=== PATIENT | female | born 1940 | race Caucasian/White ===

== ENCOUNTER → 2016-10-29 | Outpatient (CLI) | payer MEDICARE, OTHER ==
--- NOTE | 2016-10-30 11:50 | WOMENS IMAGING REPORT ---
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 Additional left breast 90 mediolateral view and compression magnification views of the left breast a t the lumpectomy site. LIMITATIONS: None. FINDINGS: RIGHT BREAST MASSES: No suspicious masses. CALCIFICATIONS: No new or suspicious calcifications. ARCHITECTURAL DISTORTION: None. DEVELOPING DENSITY: None. ASYMMETRY: None noted. OTHER: Right-sided permanent central line access port over the right axilla on MLO view LEFT BREAST MASSES: No suspicious masses. CALCIFICATIONS: Benign dystrophic calcifications are present in the left retroareolar region ARCHITECTURAL DISTORTION: Postsurgical architectural distortion at the 6 o'clock position left breast unchanged DEVELOPING DENSITY: None. ASYMMETRY: Inferior left breast is smaller than the right, post therapy OTHER: Left breast skin thickening post radiation Read with the assistance of CAD: .[facility] - R2 Cenova Version 1.3 .[facility] Imaging - R2 Cenova Version 1.3 .[facility] Imaging - R2 Cenova Version 2.4 .[facility] [place] - R2 Cenova Version 2.4 .[facility] - R2 Assistant Version 9.2 BREAST DENSITY: b. There are scattered areas of fibroglandular density. BIRAD: 2 Benign findings. RECOMMENDATION: RECOMMENDED FOLLOW UP: Please continue right breast screening, left breast diagnosti c mammograms in October 2017 SPECIFIC INTERVENTION/IMAGING/CONSULTATION RECOMMENDED:No additional intervention/ imaging/consultati on needed at this time. COMMUNICATION:Patient notified by letter COMMENT: PATIENT NOTIFIED BY LETTER. The [employer] (ACR) has developed recommendations for screening MRI of the breast s in certain patient populations, to be used in conjunction with mammography. Breast MRI surveillanc e may be appropriate for women with more than 20% lifetime risk of developing breast cancer as deter mined by genetic testing, significant family history of the disease, or history of mantle radiation f or Hodgkins Disease. ACR Practice Guidelines 2008. TECHNICAL DOCUMENTATION: FINDING NUMBER: (1) ASSESSMENT: (1) JOB ID: [id number] [employer]- All Rights Reserved
== END ==
LOC: WI 09:43
PROVIDERS: ATTEND Specialist
DX: C50.312 Malignant neoplasm of lower-inner quadrant of left female breast (principal)
CPT/HCPCS: 77066; G0204

== ENCOUNTER 2017-05-19 10:56 | Emergency (ER) | payer MEDICARE, OTHER ==
--- NOTE | 2017-05-19 11:16 | ER Document Report ---
ED Medical Screen (RME) - General Chief Complaint: Pain All Over Stated Complaint: NAUSEA,COUGH Time Seen by Provider: 05/19/17 11:13 Mode of Arrival: Wheelchair Information source: Patient TRAVEL OUTSIDE OF THE [place] IN LAST 30 DAYS: No - HPI Patient complains to provider of: productive cough Onset: Other - pt with h/o pneumonia with cough productive of green sputum for the pSAt 1-2 days. Denies fever - Related Data Allergies/Adverse Reactions: ciprofloxacin [Ciprofloxacin] Allergy (Severe, Verified 05/19/17 11:04) levofloxacin [From Levaquin] Allergy (Severe, Verified 05/19/17 11:04) codeine [Codeine] Allergy (Verified 05/19/17 11:04) Past Medical History - Social History Chew tobacco use (# tins/day): No Frequency of alcohol use: None Drug Abuse: None - Past Medical History Cardiac Medical History: Reports: Hx Coronary Artery Disease, Hx Hypercholesterolemia, Hx Hypertension Denies: Hx Heart Attack Pulmonary Medical History: Reports: Hx Bronchitis, Hx Pneumonia, Hx Sleep Apnea Denies: Hx Asthma, Hx COPD, Hx Tuberculosis Neurological Medical History: Reports: Hx Seizures. Denies: Hx Cerebrovascular Accident Endocrine Medical History: Reports: Hx Hypothyroidism Renal/ Medical History: Denies: Hx Peritoneal Dialysis Malignancy Medical History: Reports: Hx Breast Cancer - S/P LUMPECTOMY, CHEMO Tx , RAD. Tx GI Medical History: Reports: Hx Gastroesophageal Reflux Disease - incin, Hx Irritable Bowel. Denies: Hx Hepatitis, Hx Hiatal Hernia - HAD UNIQUE, Hx Ulcer Musculoskeltal Medical History: Reports Hx Arthritis Psychiatric Medical History: Reports: Hx Bipolar Disorder, Hx Depression Infectious Medical History: Denies: Hx Hepatitis Past Surgical History: Reports: Hx Abdominal Surgery - Jesus Fundoplication, Hx Appendectomy, Hx Breast Surgery, Hx Cholecystectomy, Hx Hysterectomy - Partial, Hx Tonsillectomy. Denies: Hx Mastectomy, Hx Open Heart Surgery, Hx Pacemaker - Immunizations Hx Diphtheria, Pertussis, Tetanus Vaccination: Yes Physical Exam - Vital signs Vitals: Temp Pulse Resp BP Pulse Ox 98.3 F 63 16 96/58 L 98 05/19/17 11:03 05/19/17 11:03 05/19/17 11:03 05/19/17 11:03 05/19/17 11:03 Course - Vital Signs Vital signs: Temp Pulse Resp BP Pulse Ox 98.3 F 63 16 96/58 L 98 05/19/17 11:03 05/19/17 11:03 05/19/17 11:03 05/19/17 11:03 05/19/17 11:03
[2017-05-19 12:04] LABS: ABSOLUTE BASOPHILS # (AUTO) 0.1 10^3/uL (0.0-0.2); ABSOLUTE EOSINOPHILS # (AUTO) 0.1 10^3/uL (0.0-0.6); ABSOLUTE LYMPHOCYTES (AUTO) 2.5 10^3/uL (0.5-4.7); ABSOLUTE MONOCYTES (AUTO) 1.6 10^3/uL (0.1-1.4); ABSOLUTE NEUT (AUTO) 12.3 10^3/uL (1.7-8.2); BASOPHILS % (AUTO) 0.5 % (0-2); EOSINOPHILS % (AUTO) 0.6 % (0-6); HEMATOCRIT 42.3 % (36.0-47.0); HEMOGLOBIN 13.9 g/dL (12.0-15.5); HGB HCT DIFFERENCE -0.6; LYMPHOCYTES % (AUTO) 15.2 % (13-45); MEAN CORPUSCULAR HGB CONC 32.8 g/dL (32.0-36.0); MEAN CORPUSCULAR VOLUME 98 fl (80-97); MONOCYTES % (AUTO) 9.8 % (3-13); RED BLOOD COUNT 4.33 10^6/uL (3.72-5.28); RED CELL DISTRIBUTION WIDTH 14.1 % (11.5-14.0); SEGMENTED NEUTROPHILS % (AUTO) 73.9 % (42-78); WHITE BLOOD COUNT 16.6 10^3/uL (4.0-10.5)
--- NOTE | 2017-05-19 12:14 | RADIOLOGY REPORT (SQ) ---
EXAM DESCRIPTION: CHEST PA/LAT COMPLETED DATE/TIME: 05/19/2017 11:56 am REASON FOR STUDY: productive cough COMPARISON: 07/09/2016. EXAM PARAMETERS: NUMBER OF VIEWS: two views TECHNIQUE: Digital Frontal and Lateral radiographic views of the chest acquired. RADIATION DOSE: NA LIMITATIONS: none FINDINGS: LUNGS AND PLEURA: Chronic interstitial changes and mild pleural thickening in the apices. No opacities, masses or pneumothorax. No pleural effusion. MEDIASTINUM AND HILAR STRUCTURES: No masses or contour abnormalities. HEART AND VASCULAR STRUCTURES: Heart normal size. No evidence for failure. BONES: No acute findings. Degenerative changes in the spine with scoliosis. HARDWARE: Vascular access port. Clips in the upper abdomen. OTHER: No other significant finding. IMPRESSION: STABLE MILD CHRONIC SCARRING. NO ACUTE RADIOGRAPHIC FINDING IN THE CHEST. TECHNICAL DOCUMENTATION: JOB ID: [id number] [employer]- All Rights Reserved
[2017-05-19 12:19] LABS: ALANINE AMINOTRANSFERASE 18 U/L (9-52); ALBUMIN 4.5 g/dL (3.5-5.0); ALKALINE PHOSPHATASE 72 U/L (38-126); ANION GAP 17 (5-19); ASPARTATE AMINO TRANSFERASE 36 U/L (14-36); BILIRUBIN,DIRECT 0.4 mg/dL (0.0-0.4); BILIRUBIN,TOTAL 0.8 mg/dL (0.2-1.3); BLOOD UREA NITROGEN 21 mg/dL (7-20); CALCIUM 10.9 mg/dL (8.4-10.2); CARBON DIOXIDE 31 mmol/L (22-30); CHLORIDE 92 mmol/L (98-107); CREATINE KINASE 61 U/L (30-135); CREATININE RESULT 1.32 mg/dL (0.52-1.25); GLUCOSE 126 mg/dL (75-110); POTASSIUM 4.8 mmol/L (3.6-5.0); SODIUM 140.1 mmol/L (137-145); TOTAL PROTEIN 8.1 g/dL (6.3-8.2)
[2017-05-19 12:31] LABS: CREATINE KINASE MB 0.42 ng/mL (<4.55)
[2017-05-19 12:32] LABS: TROPONIN I < 0.012 ng/mL
--- NOTE | 2017-05-19 13:11 | ER Document Report ---
ED General Pain - General Mode of Arrival: Wheelchair Information source: Patient TRAVEL OUTSIDE OF THE [place] IN LAST 30 DAYS: No - HPI Patient complains to provider of: body aches Associated symptoms: Other - See above <ISIAH PATTON - Last Filed: 05/19/17 13:07> <KALIE WRIGHT - Last Filed: 05/19/17 16:00> - General Chief Complaint: Pain All Over Stated Complaint: body aches Time Seen by Provider: 05/19/17 11:13 Notes: Patient is a 76 year old female, with a past medical history including pneumonia and CAD, who presents to the emergency department complaining of body aches. Patient also complains of a productive cough with green sometimes yellowish sputum that is worse when supine. Patient denies any shortness of breath or difficulty breathing. Patient reports that she "always gets pneumonia. " PCP: (ISIAH PATTON) - Related Data Allergies/Adverse Reactions: ciprofloxacin [Ciprofloxacin] Allergy (Severe, Verified 05/19/17 11:04) levofloxacin [From Levaquin] Allergy (Severe, Verified 05/19/17 11:04) codeine [Codeine] Allergy (Verified 05/19/17 11:04) Past Medical History - General Information source: Patient - Social History Smoking Status: Former Smoker Chew tobacco use (# tins/day): No Frequency of alcohol use: None Drug Abuse: None Family History: Reviewed & Not Pertinent, CAD - Past Medical History Cardiac Medical History: Reports: Hx Coronary Artery Disease, Hx Hypercholesterolemia, Hx Hypertension Pulmonary Medical History: Reports: Hx Bronchitis, Hx Pneumonia, Hx Sleep Apnea Neurological Medical History: Reports: Hx Seizures Endocrine Medical History: Reports: Hx Hypothyroidism Malignancy Medical History: Reports: Hx Breast Cancer - S/P LUMPECTOMY, CHEMO Tx , RAD. Tx GI Medical History: Reports: Hx Gastroesophageal Reflux Disease - incin, Hx Irritable Bowel Musculoskeltal Medical History: Reports Hx Arthritis Psychiatric Medical History: Reports: Hx Bipolar Disorder, Hx Depression Past Surgical History: Reports: Hx Abdominal Surgery - Jesus Fundoplication, Hx Appendectomy, Hx Breast Surgery, Hx Cholecystectomy, Hx Hysterectomy - Partial, Hx Tonsillectomy - Immunizations Hx Diphtheria, Pertussis, Tetanus Vaccination: Yes Hx Pneumococcal Vaccination: 07/27/13 <ISIAH PATTON - Last Filed: 05/19/17 13:07> Review of Systems - Review of Systems Constitutional: See HPI, Other - Body aches EENT: No symptoms reported Cardiovascular: No symptoms reported Respiratory: See HPI, Cough, Sputum. denies: Short of breath Gastrointestinal: No symptoms reported Genitourinary: No symptoms reported Female Genitourinary: No symptoms reported Musculoskeletal: No symptoms reported Skin: No symptoms reported Hematologic/Lymphatic: No symptoms reported Neurological/Psychological: No symptoms reported -: Yes All other systems reviewed and negative <ISIAH PATTON - Last Filed: 05/19/17 13:07> Physical Exam - Vital signs Interpretation: Normal - General General appearance: Appears well, Alert - HEENT Head: Normocephalic, Atraumatic - Respiratory Respiratory status: No respiratory distress Chest status: Nontender Breath sounds: Rhonchi - mild Chest palpation: Normal - Cardiovascular Rhythm: Regular Heart sounds: Normal auscultation Murmur: No - Back Back: Normal, Nontender - Extremities General upper extremity: Normal inspection General lower extremity: Normal inspection. No: Edema - Neurological Neuro grossly intact: Yes Cognition: Normal Orientation: AAOx4 [place] Coma Scale Eye Opening: Spontaneous Valentina Coma Scale Verbal: Oriented [place] Coma Scale Motor: Obeys Commands [place] Coma Scale Total: 15 Speech: Normal - Psychological Associated symptoms: Normal affect, Normal mood - Skin Skin Temperature: Warm Skin Moisture: Dry Skin Color: Normal <ISIAH PATTON - Last Filed: 05/19/17 13:07> Course - Laboratory Result Diagrams: 05/19/17 11:45 05/19/17 11:45 <ISIAH PATTON - Last Filed: 05/19/17 13:07> - Laboratory Result Diagrams: 05/19/17 11:45 05/19/17 11:45 - Diagnostic Test Radiology reviewed: Image reviewed, Reports reviewed - Chest x-ray shows stable mild chronic scarring, nothing acute. <KALIE WRIGHT - Last Filed: 05/19/17 16:00> - Re-evaluation Re-evalutation: 05/19/17 15:59 The patient was able to cough up a very thick brown sputum sometime after her initial sputum was collected and sent to the lab. This sputum was collected by the [facility] and sent to the lab. (KALIE WRIGHT) - Vital Signs Vital signs: Temp Pulse Resp BP Pulse Ox 98.3 F 63 20 101/82 99 05/19/17 11:03 05/19/17 11:03 05/19/17 14:04 05/19/17 14:04 05/19/17 14:04 - Laboratory Laboratory results interpreted by me: 05/19/17 05/19/17 05/19/17 11:45 11:45 14:33 WBC 16.6 H MCV 98 H RDW 14.1 H Absolute Neutrophils 12.3 H Absolute Monocytes 1.6 H Chloride 92 L Carbon Dioxide 31 H BUN 21 H Creatinine 1.32 H Est GFR ( Amer) 47 L Est GFR (Non-Af Amer) 39 L Glucose 126 H Calcium 10.9 H Urine Bilirubin SMALL H Urine Ascorbic Acid 40 H Discharge <ISIAH PATTON - Last Filed: 05/19/17 13:07> <KALIE WRIGHT - Last Filed: 05/19/17 16:00> - Discharge Clinical Impression: Bronchitis Condition: Stable Disposition: HOME, SELF-CARE Additional Instructions: Bronchitis: You have acute bronchitis. This disease is an infection or inflammation of the air passageways in your lungs. Symptoms usually include cough, low grade fever, shortness of breath, and wheezing. The cough usually persists for a couple of weeks. Most cases of bronchitis get better without antibiotics. We prescribe antibiotics when we believe bacteria are damaging your airways, or if there's high risk the bronchitis will worsen into pneumonia. Increase your fluid intake. A cool mist humidifier may make your lungs more comfortable. An expectorant (cough medicine that loosens phlegm) can help. If you smoke, STOP!!! Recovery from bronchitis can be somewhat slow, but you should see improvement within a day or two. Repeated episodes of bronchitis may result in lung damage -- for example, chronic bronchitis, recurrent pneumonias, or emphysema. Call the doctor if you develop increasing fever, shortness of breath, chest pain, bloody sputum, or otherwise worsen. If you have not improved at all after several days, contact the physician. TAKE THE MEDICATION PRESCRIBED. DRINK PLENTY OF FLUIDS. FOLLOW UP WITH YOUR DOCTOR THIS WEEK IF NOT IMPROVING. RETURN TO THE EMERGENCY ROOM IF ANY NEW OR WORSENING SYMPTOMS. Prescriptions: Doxycycline Hyclate 100 mg PO BID #20 tablet Referrals: USHA MADRIGAL MD [Primary Care Provider] - Follow up as needed Scribe Attestation: 05/19/17 15:59 I personally performed the services described in the documentation, reviewed and edited the documentation which was dictated to the scribe in my presence, and it accurately records my words and actions. (KALIE WRIGHT) Scribe Documentation - Scribe Written by Scribe:: wayne Beck, 05/19/17, 1310 acting as scribe for :: Twila <ISIAH PATTON - Last Filed: 05/19/17 13:07>
--- NOTE | 2017-05-19 13:59 | EKG REPORT ---
SEVERITY:- BORDERLINE ECG - SINUS TACHYCARDIA CONSIDER ANTERIOR INFARCT : Confirmed by: Tamara Lindsay MD 19-May-2017 13:58:09
[2017-05-19 14:51] LABS: AMORPHOUS SEDIMENT,URINE TRACE /HPF; APPEARANCE,URINE CLOUDY; BILIRUBIN,URINE SMALL (NEGATIVE); GLUCOSE, URINE NEGATIVE (NEGATIVE); KETONES,URINE NEGATIVE (NEGATIVE); LEUKOCYTE ESTERASE,URINE NEGATIVE (NEGATIVE); NITRITE,URINE NEGATIVE (NEGATIVE); PROTEIN,URINE NEGATIVE (NEGATIVE); URINE SPECIFIC GRAVITY 1.024; UROBILINOGEN,URINE NEGATIVE mg/dL (<2.0)
[2017-05-19] MEDS ORDERED: DOXYCYCLINE HYCLATE 100 MG TABLET PO ONE (15:29)
[2017-05-19 16:30] VITALS: BP 91/55
== END 2017-05-19 16:15 | disposition home or self-care (01) ==
LOC: ER 10:56
DX: J40 Bronchitis, not specified as acute or chronic (principal); R52 Pain, unspecified; R05 Cough; R09.89 Other specified symptoms and signs involving the circulatory and respiratory systems; I25.10 Atherosclerotic heart disease of native coronary artery without angina pectoris; I10 Essential (primary) hypertension; Z87.01 Personal history of pneumonia (recurrent); Z88.1 Allergy status to other antibiotic agents; Z88.5 Allergy status to narcotic agent; Z87.891 Personal history of nicotine dependence; Z85.3 Personal history of malignant neoplasm of breast; Z92.21 Personal history of antineoplastic chemotherapy; Z92.3 Personal history of irradiation
CPT/HCPCS: 93005; 99284; 36415; 87040; 87070; 87205; 82553; 82550; 85025; 87077; 80053; 81001; 84484; 71020; 93010; A9270

== ENCOUNTER → 2017-07-07 | Outpatient (CLI) | payer MEDICARE, OTHER ==
--- NOTE | 2017-07-07 10:09 | RADIOLOGY REPORT (SQ) ---
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 Images reviewed with lung, soft tissue and bone windows. Reconstructed coronal and sagittal MPR images reviewed. All images stored on PACS. All CT scanners at this facility use dose modulation, iterative reconstruction, and/or weight based d osing when appropriate to reduce radiation dose to as low as reasonably achievable (ALARA). [facility]: Dose Right [facility]: CareDose [facility]: Dose Right [facility]: Teradose 4D [facility]: BlenderHouse CONTRAST TYPE AND DOSE: contrast/concentration: Isovue 370.00 mg/ml; Total Contrast Delivered: 80.0 ml; Total Saline Delivered: 55.0 ml RENAL FUNCTION: Creatinine 1.0 RADIATION DOSE: . LIMITATIONS: None. FINDINGS: LUNGS AND PLEURA: There chronic bilateral pleural and parenchymal changes. No consolidati on. No pleural effusions. HILAR AND MEDIASTINAL STRUCTURES: No identified masses or abnormal nodes. HEART AND VASCULAR STRUCTURES: No aneurysm or dissection. No central pulmonary emboli. No pericardi al effusion. HARDWARE: None in the chest. UPPER ABDOMEN: No significant findings. Limited exam. THYROID AND OTHER SOFT TISSUES: No masses. No adenopathy. BONES: No significant finding. OTHER: There is a stable hiatal hernia. IMPRESSION: No acute findings in the chest. TECHNICAL DOCUMENTATION: JOB ID: [id number] Quality ID # [id number]: Final reports with documentation of one or more dose reduction techniques (e.g., Au tomated exposure control, adjustment of the mA and/or kV according to patient size, use of iterative reconstruction technique) 2010 [employer]- All Rights Reserved
== END ==
LOC: RAD 07:55
PROVIDERS: ATTEND Physician Assistant
DX: R06.02 Shortness of breath (principal); R07.9 Chest pain, unspecified; C50.312 Malignant neoplasm of lower-inner quadrant of left female breast
CPT/HCPCS: 71260; 82565

== ENCOUNTER → 2017-07-10 | Outpatient (CLI) | payer MEDICARE, OTHER ==
--- NOTE | 2017-07-11 10:04 | XCELERA REPORT ---
[address] [address] Transthoracic Echocardiogram Report Name: ERIC PRETTY Age: 77 yrs Gender: Female : 1940 Patient Status: Outpatient Patient Location: Study Date: 07/10/2017 08:04 AM Height: 64 in Weight: 170 lb BSA: 1.8 m2 Procedure: A complete two-dimensional transthoracic echocardiogram was performed (2D, M-mode, spectral and color flow Doppler). The study was technically difficult with many images being suboptimal in quality. Reason For Study: SOB EDEMA Ordering Physician: DAMON KIDD PA-C Performed By: Marni Marrero Interpretation Summary The study was technically difficult with many images being suboptimal in quality. The left ventricular ejection fraction is within normal limits. Doppler measurements suggest pseudonormalized left ventricular relaxation, which is associated with grade II/IV or mild to moderate diastolic dysfunction There is mild concentric left ventricular hypertrophy. The left ventricle is grossly normal size. Regional wall motion abnormalities cannot be excluded due to limited visualization. The right ventricular systolic function is normal. The left atrial size is normal. The right atrium is normal in size There is a mild amount of mitral regurgitation There is no mitral valve stenosis. There is a trace amount of aortic regurgitation There is no aortic valve stenosis There is a trace to mild amount of tricuspid regurgitation There is mild to moderate pulmonary hypertension by echo Right ventricular systolic pressure is estimated to be elevated at 40- 50mmHg. There is no pericardial effusion. MMode/2D Measurements & Calculations RVDd: 3.3 cm LVIDd: 4.8 cm FS: 26.9 % Ao root diam: IVSd: 0.75 cm LVIDs: 3.5 cm EDV(Teich): 2.8 cm LVPWd: 0.78 cm 108.3 ml Ao root area: ESV(Teich): 51.6 ml 6.2 cm2 EF(Teich): 52.4 % LA dimension: 3.6 cm LVLd ap4: 7.1 cm SV(MOD-sp4): EDV(MOD-sp4): 39.0 ml 69.0 ml LVLs ap4: 6.2 cm ESV(MOD-sp4): 30.0 ml EF(MOD-sp4): 56.5 % Doppler Measurements & Calculations MV E max lili: MV P1/2t max lili: Ao V2 max: LV V1 max P.1 cm/sec 69.6 cm/sec 103.2 cm/sec 3.4 mmHg MV A max lili: MV P1/2t: 79.6 msec Ao max PG: LV V1 max: 92.8 cm/sec MVA(P1/2t): 2.8 cm2 4.3 mmHg 92.8 cm/sec MV E/A: 0.73 MV dec slope: 256.1 cm/sec2 MV dec time: 0.26 sec PA V2 max: TR max lili: 82.9 cm/sec 314.9 cm/sec PA max PG: TR max P.7 mmHg 2.8 mmHg Left Ventricle The left ventricle is grossly normal size. There is mild concentric left ventricular hypertrophy. The left ventricular ejection fraction is within normal limits. Doppler measurements suggest pseudonormalized left ventricular relaxation, which is associated with grade II/IV or mild to moderate diastolic dysfunction. Regional wall motion abnormalities cannot be excluded due to limited visualization. Right Ventricle The right ventricle is grossly normal size. There is normal right ventricular wall thickness. The right ventricular systolic function is normal. Atria The right atrium is normal in size. The left atrial size is normal. Interarterial septum not well visualized and not well dopplered. Cannot comment on ASD/PFO presence. Mitral Valve There is mild mitral annular calcification. There is no mitral valve stenosis. There is a mild amount of mitral regurgitation. Aortic Valve The aortic valve is not well visualized secondary to technical limitations. The aortic valve is mildly calcified. There is no aortic valve stenosis. There is a trace amount of aortic regurgitation. Tricuspid Valve The tricuspid valve is not well visualized, but is grossly normal. There is no tricuspid stenosis. There is a trace to mild amount of tricuspid regurgitation. There is mild to moderate pulmonary hypertension by echo. Right ventricular systolic pressure is estimated to be elevated at 40- 50mmHg. Pulmonic Valve The pulmonic valve is not well visualized. Great Vessels The aortic root is not well visualized. The inferior vena cava appeared normal and decreased > 50% with respiration (RAP 5-10 mmHg). Effusions There is no pericardial effusion. : DAMON KIDD PA-C > Evelia Franks
== END ==
LOC: SP 07:26
PROVIDERS: ATTEND Physician Assistant
DX: R06.02 Shortness of breath (principal); R60.0 Localized edema
CPT/HCPCS: 93306

== ENCOUNTER → 2017-11-25 | Outpatient (CLI) | payer MEDICARE, OTHER ==
--- NOTE | 2017-11-26 08:21 | WOMENS IMAGING REPORT ---
EXAM DESCRIPTION: 3D DX MAMMO BILAT COMPLETED DATE/TIME: 11/25/2017 10:44 am REASON FOR STUDY: PERSONAL HX OF BREAST CA; Z85.3 Z85.3 PERSONAL HISTORY OF MALIGNANT NEOPLASM OF B REAST COMPARISON: Multiple since 2009 TECHNIQUE: Standard craniocaudal and mediolateral oblique views of each breast recorded using digita l acquisition and breast tomosynthesis. Additional left breast 90 mediolateral view and compression magnification views left breast in the C C and MLO orientations at the lumpectomy site LIMITATIONS: None. FINDINGS: RIGHT BREAST MASSES: No suspicious masses. CALCIFICATIONS: No new or suspicious calcifications. ARCHITECTURAL DISTORTION: None. DEVELOPING DENSITY: None. ASYMMETRY: None noted. OTHER: No other significant findings. LEFT BREAST MASSES: No suspicious masses. CALCIFICATIONS: Coarse dense dystrophic calcifications in the left retroareolar region. ARCHITECTURAL DISTORTION: Postoperative architectural distortion in the left breast 6 o'clock positio n DEVELOPING DENSITY: None. ASYMMETRY: None noted. OTHER: No other significant finding. Read with the assistance of CAD: .[facility] - R2 Cenova Version 1.3 .[facility] Imaging - R2 Cenova Version 1.[address] .[facility] Imaging - R2 Cenova Version 2.4 .[facility] - R2 Cenova Version 2.4 .[facility] - R2 Cloth Finisher Version 9.2 IMPRESSION: No mammographic/tomosynthesis evidence for malignancy bilaterally BREAST DENSITY: b. There are scattered areas of fibroglandular density. BIRAD: 2 Benign findings. RECOMMENDATION: RECOMMENDED FOLLOW UP: Please continue right breast screening, left breast diagnosti c mammogram/tomosynthesis in October 2018 SPECIFIC INTERVENTION/IMAGING/CONSULTATION RECOMMENDED:No additional intervention/ imaging/consultati on needed at this time. COMMUNICATION:The negative/benign results were communicated to the patient. COMMENT: The patient has been notified of the results by letter per [place] requirements. Additional no tification policies are in place for contacting patient with suspicious or incomplete findings. Quality ID #[id number]: The [employer] recommends an annual screening mammogram for women aged 40 years or over. This facility utilizes a reminder system to ensure that all patients receive reminder letters, and/or direct phone calls for appointments. This includes reminders for routine scr eening mammograms, diagnostic mammograms, or other Breast Imaging Interventions when appropriate. Th is patient will be placed in the appropriate reminder system. The [employer] (ACR) has developed recommendations for screening MRI of the breast s in certain patient populations, to be used in conjunction with mammography. Breast MRI surveillanc e may be appropriate for women with more than 20% lifetime risk of developing breast cancer as deter mined by genetic testing, significant family history of the disease, or history of mantle radiation f or Hodgkins Disease. ACR Practice Guidelines 2008. DBT Technology DBT is a type of tomographic mammography. With conventional mammography, overlapping breast tissue ma y make lesions difficult to detect, even with good compression. DBT uses an x-ray tube that rotates a round the breast, taking images at different angles. These images are then combined to create thin sl ices of the breast that the radiologist can view as a 3D reconstruction. The [employer] unit can perform full-field digital mammograms (2D imaging); or DBT (3D imaging); or both, in a combination mode that quickly performs both the mammogram and the tomosynthesis scan while the breast is still compressed. PQRS 6045F: Fluoroscopic imaging is not utilized for breast tomosynthesis. TECHNICAL DOCUMENTATION: FINDING NUMBER: (1) ASSESSMENT: (1) JOB ID: [id number] [employer]- All Rights Reserved
== END ==
LOC: WI 10:23
PROVIDERS: ATTEND Physician Assistant
DX: Z85.3 Personal history of malignant neoplasm of breast (principal)
CPT/HCPCS: 77066; G0279; 77062

== ENCOUNTER → 2017-12-23 | Outpatient (CLI) | payer MEDICARE, OTHER ==
--- NOTE | 2017-12-24 12:14 | XCELERA REPORT ---
[address] [address] Lower Extremity Arterial Evaluation Name: ERIC PRETTY Age: 77 yrs Gender: Female : 1940 Patient Status: Outpatient Patient Location: Study Date: 12/23/2017 11:02 AM Procedure: A color flow and duplex scan of the lower extremity arteries was performed bilaterally with velocity and waveform anaylsis. Ankle brachial indicies performed. Reason For Study: LACK OF PULSE Ordering Physician: LUCINDA GORDON Performed By: Ligia Rutherford Measurements and Calculations Right Left CHEMIST INTERN PSV 81.5 73.7 cm/sec Prox PFA PSV -49.9 -57.4 cm/sec Prox SFA PSV -71.9 73.2 cm/sec Mid SFA PSV -55.6 -49.9 cm/sec Dist SFA PSV -62.9 -48.6 cm/sec Prox Pop A PSV 35.9 44.9 cm/sec Dist KATHIA PSV -43.0 42.4 cm/sec Dist SPORTS EDITOR PSV 51.0 50.0 cm/sec Jonathan Pedis PSV -20.6 18.9 cm/sec Right Side Arterial Evaluation Normal velocity and triphasic waveforms noted from the Common Femoral artery to the Posterior Tibial artery . 0-19% stenosis at the Anterior Tibial artery. Ankle Brachial index is 1.1. Left Side Arterial Evaluation Normal velocity and triphasic waveforms noted from the Common Femoral artery to the Popliteal artery . Biphasic in the infrageniculate vessels. 0-19% stenosis at the infrageniculate level. Ankle Brachial index is 1.1. Interpretation Summary Mild hemodynamically significant lesions in the bilateral lower extremities, on duplex imaging, at rest. : LUCINDA GORDON > Lucinda Gordon
== END ==
LOC: SP 10:50
PROVIDERS: ATTEND Surgery
DX: R09.89 Other specified symptoms and signs involving the circulatory and respiratory systems (principal)
CPT/HCPCS: 93925

== ENCOUNTER 2018-03-20 18:19 | Emergency (ER) | payer MEDICARE, OTHER ==
[2018-03-20] MEDS ORDERED: NORMAL SALINE 1000 ML 1,000 ML IV ONE (18:48)
[2018-03-20] MEDS ORDERED: IPRATROPIUM/ALBUTEROL 0.5-2.5 MG/3 ML AMPUL NEB ONE ×2 (18:48→18:50)
--- NOTE | 2018-03-20 18:50 | ER Document Report ---
ED General - General Chief Complaint: Abdominal Pain Stated Complaint: ABDOMINAL PAIN Time Seen by Provider: 03/20/18 18:42 Mode of Arrival: Wheelchair Information source: Patient, Relative Notes: 77-year-old female presents with daughter with concerns of generalized weakness confusion pelvic pain cough over the past few days. Patient's O2 sats are usually in the low 90s, did dip down to the upper 80s at home. Daughter notes blood pressure was low at home Last night patient appeared confused however they note today she appears more stable TRAVEL OUTSIDE OF THE [place] IN LAST 30 DAYS: No - HPI Onset: Last week Onset/Duration: Persistent, Better Quality of pain: Achy Severity: Mild Pain Level: 1 Associated symptoms: Nonproductive cough, Weakness, Other Exacerbated by: Denies Relieved by: Denies Similar symptoms previously: Yes - Previous UTI Recently seen / treated by doctor: No - Related Data Allergies/Adverse Reactions: ciprofloxacin [Ciprofloxacin] Allergy (Severe, Verified 05/19/17 11:04) levofloxacin [From Levaquin] Allergy (Severe, Verified 05/19/17 11:04) codeine [Codeine] Allergy (Verified 05/19/17 11:04) Sulfa (Sulfonamide Antibiotics) Allergy (Verified 03/20/18 18:21) Past Medical History - Social History Smoking Status: Former Smoker Cigarette use (# per day): No Chew tobacco use (# tins/day): No Smoking Education Provided: No Frequency of alcohol use: None Drug Abuse: None Family History: Reviewed & Not Pertinent, CAD Patient has suicidal ideation: No Patient has homicidal ideation: No - Past Medical History Cardiac Medical History: Reports: Hx Coronary Artery Disease, Hx Hypercholesterolemia, Hx Hypertension Denies: Hx Heart Attack Pulmonary Medical History: Reports: Hx Bronchitis, Hx Pneumonia, Hx Sleep Apnea Denies: Hx Asthma, Hx COPD, Hx Tuberculosis Neurological Medical History: Reports: Hx Seizures. Denies: Hx Cerebrovascular Accident Endocrine Medical History: Reports: Hx Hypothyroidism Renal/ Medical History: Denies: Hx Peritoneal Dialysis Malignancy Medical History: Reports: Hx Breast Cancer - S/P LUMPECTOMY, CHEMO Tx , RAD. Tx GI Medical History: Reports: Hx Gastroesophageal Reflux Disease - incin, Hx Irritable Bowel. Denies: Hx Hepatitis, Hx Hiatal Hernia - HAD UNIQUE, Hx Ulcer Musculoskeltal Medical History: Reports Hx Arthritis Psychiatric Medical History: Reports: Hx Bipolar Disorder, Hx Depression Infectious Medical History: Denies: Hx Hepatitis Past Surgical History: Reports: Hx Abdominal Surgery - Jesus Fundoplication, Hx Appendectomy, Hx Breast Surgery, Hx Cholecystectomy, Hx Hysterectomy, Hx Tonsillectomy. Denies: Hx Mastectomy, Hx Open Heart Surgery, Hx Pacemaker - Immunizations Hx Diphtheria, Pertussis, Tetanus Vaccination: Yes Hx Pneumococcal Vaccination: 07/27/13 Review of Systems - Review of Systems Notes: REVIEW OF SYSTEMS: CONSTITUTIONAL : Denies fever, chills, or sweats. Denies recent illness. EENT: Denies eye, ear, throat, or mouth pain or symptoms. Denies nasal or sinus congestion or discharge. Denies throat, tongue, or mouth swelling or difficulty swallowing. CARDIOVASCULAR: Denies chest pain. Denies palpitations or racing or irregular heart beat. Denies ankle edema. RESPIRATORY: Admits to cough GASTROINTESTINAL: Admits to suprapubic pain GENITOURINARY: Admits pelvic pain FEMALE GENITOURINARY: Denies vaginal bleeding, heavy or abnormal periods, irregular periods. Denies vaginal discharge or odor. MUSCULOSKELETAL: Denies back or neck pain or stiffness. Denies joint pain or swelling. SKIN: Denies rash, lesions or sores. HEMATOLOGIC : Denies easy bruising or bleeding. LYMPHATIC: Denies swollen, enlarged glands. NEUROLOGICAL: Denies confusion or altered mental status. Denies passing out or loss of consciousness. Denies dizziness or lightheadedness. Denies headache. Denies weakness or paralysis or loss of use of either side. Denies problems with gait or speech. Denies sensory loss, numbness, or tingling. Denies seizures. PSYCHIATRIC: Denies anxiety or stress. Denies depression, suicidal ideation, or homicidal ideation. ALL OTHER SYSTEMS REVIEWED AND NEGATIVE. PHYSICAL EXAMINATION: GENERAL: Well-appearing, well-nourished and in no acute distress. HEAD: Atraumatic, normocephalic. EYES: Pupils equal round and reactive to light, extraocular movements intact, conjunctiva are normal. ENT: Nares patent, oropharynx clear without exudates. Moist mucous membranes. NECK: Normal range of motion, supple without lymphadenopathy LUNGS: Intermittent rhonchi HEART: Regular rate and rhythm without murmurs ABDOMEN: Soft, suprapubic tenderness Female : deferred Musculoskeletal: Normal range of motion, no pitting or edema. No cyanosis. NEUROLOGICAL: Cranial nerves grossly intact. Normal speech, normal gait. Normal sensory, motor exams PSYCH: Normal mood, normal affect. SKIN: Warm, Dry, normal turgor, no rashes or lesions noted. Dictation was performed using [employer] voice recognition software Physical Exam - Vital signs Vitals: Temp Pulse Resp BP Pulse Ox 98.7 F 92 16 127/67 H 94 03/20/18 18:26 03/20/18 18:26 03/20/18 18:26 03/20/18 18:26 03/20/18 18:26 Course - Re-evaluation Re-evalutation: 03/20/18 18:50 Patient appears well at this time however given daughter's concerns I will work her up extensively since daughter is very knowledgeable. 03/20/18 21:19 Patient has been stable throughout the visit, UTI is noted otherwise she is stable, I will discharge home with extremely close follow-up After performing a Medical Screening Examination, I estimate there is LOW risk for ACUTE APPENDICITIS, BOWEL OBSTRUCTION, ACUTE CHOLECYSTITIS, PERFORATED DIVERTICULITIS, INCARCERATED HERNIA, PANCREATITIS, PELVIC INFLAMMATORY DISEASE, PERFORATED ULCER, ECTOPIC , or TUBO-OVARIAN ABSCESS, thus I consider the discharge disposition reasonable. Also, there is no evidence or peritonitis , sepsis, or toxicity. I have reevaluated this patient multiple times and no significant life threatening changes are noted. The patient and I have discussed the diagnosis and risks, and we agree with discharging home with close follow-up with the understanding that symptoms and presentations can change. We also discussed returning to the Emergency Department immediately if new or worsening symptoms occur. We have discussed the symptoms which are most concerning (e.g., bloody stool, fever, changing or worsening pain, vomiting) that necessitate immediate return. - Vital Signs Vital signs: Temp Pulse Resp BP Pulse Ox 98.7 F 92 16 127/67 H 94 03/20/18 18:26 03/20/18 18:26 03/20/18 18:26 03/20/18 18:26 03/20/18 18:26 - Laboratory Result Diagrams: 03/20/18 19:10 03/20/18 19:45 Laboratory results interpreted by me: 03/20/18 03/20/18 03/20/18 18:55 19:10 19:45 WBC 15.7 H RDW 14.3 H Absolute Neutrophils 11.8 H Carbon Dioxide 31 H BUN 21 H Est GFR (Non-Af Amer) 50 L Glucose 122 H Ur Leukocyte Esterase MODERATE H Urine Ascorbic Acid 40 H - Diagnostic Test Radiology reviewed: Image reviewed - Chest x-ray 2 view notes no acute abnormality, Reports reviewed Discharge - Discharge Clinical Impression: Cough UTI (urinary tract infection) Qualifiers: Urinary tract infection type: acute cystitis Hematuria presence: without hematuria Qualified Code(s): N30.00 - Acute cystitis without hematuria Condition: Stable Disposition: HOME, SELF-CARE Instructions: Urinary Tract Infection ([facility]) Additional Instructions: Follow up with your physician tomorrow for further care or return to the ED IMMEDIATELY if symptoms worsen or new concerns occur. If you cannot afford to follow up with your primary care physician a list of low cost clinics have been provided at the end of your discharge papers as well. Prescriptions: Cephalexin Monohydrate [Keflex 500 mg Capsule] 500 mg PO BID 7 Days capsule Phenazopyridine HCl [Pyridium 200 mg Tablet] 200 mg PO TID #9 tablet
[2018-03-20] MEDS ORDERED: ACETAMINOPHEN 325 MG TABLET PO ONE (18:56)
[2018-03-20 19:14] LABS: APPEARANCE,URINE SLIGHTLY-CLOUDY; BILIRUBIN,URINE NEGATIVE (NEGATIVE); COLOR,URINE YELLOW; GLUCOSE, URINE NEGATIVE (NEGATIVE); KETONES,URINE NEGATIVE (NEGATIVE); LEUKOCYTE ESTERASE,URINE MODERATE (NEGATIVE); NITRITE,URINE NEGATIVE (NEGATIVE); PROTEIN,URINE NEGATIVE (NEGATIVE); URINE SPECIFIC GRAVITY 1.018; UROBILINOGEN,URINE NEGATIVE mg/dL (<2.0)
[2018-03-20] MEDS ORDERED: CEFTRIAXONE INJ 1000 MG VIAL IV ONE (19:28)
[2018-03-20 19:33] LABS: ABSOLUTE BASOPHILS # (AUTO) 0.1 10^3/uL (0.0-0.2); ABSOLUTE EOSINOPHILS # (AUTO) 0.5 10^3/uL (0.0-0.6); ABSOLUTE LYMPHOCYTES (AUTO) 2.3 10^3/uL (0.5-4.7); ABSOLUTE MONOCYTES (AUTO) 0.9 10^3/uL (0.1-1.4); ABSOLUTE NEUT (AUTO) 11.8 10^3/uL (1.7-8.2); BASOPHILS % (AUTO) 0.5 % (0-2); HEMATOCRIT 42.6 % (36.0-47.0); LYMPHOCYTES % (AUTO) 14.9 % (13-45); MEAN CORPUSCULAR HEMOGLOBIN 31.3 pg (27.0-33.4); MEAN CORPUSCULAR HGB CONC 32.9 g/dL (32.0-36.0); MEAN CORPUSCULAR VOLUME 95 fl (80-97); PLATELET COUNT 237 10^3/uL (150-450); RED BLOOD COUNT 4.47 10^6/uL (3.72-5.28); RED CELL DISTRIBUTION WIDTH 14.3 % (11.5-14.0); SEGMENTED NEUTROPHILS % (AUTO) 75.6 % (42-78); TOTAL CELLS COUNTED % (AUTO) 100 %; WHITE BLOOD COUNT 15.7 10^3/uL (4.0-10.5)
--- NOTE | 2018-03-20 19:37 | RADIOLOGY REPORT (SQ) ---
EXAM DESCRIPTION: CHEST 2 VIEWS COMPLETED DATE/TIME: 03/20/2018 7:18 pm REASON FOR STUDY: confusion COMPARISON: 05/19/2017 EXAM PARAMETERS: NUMBER OF VIEWS: two views TECHNIQUE: Digital Frontal and Lateral radiographic views of the chest acquired. RADIATION DOSE: NA LIMITATIONS: none FINDINGS: LUNGS AND PLEURA: No acute opacities, masses or pneumothorax. No pleural effusion. MEDIASTINUM AND HILAR STRUCTURES: Stable. HEART AND VASCULAR STRUCTURES: Stable. BONES: No acute findings. HARDWARE: Right chest port. OTHER: No other significant finding. IMPRESSION: NO ACUTE RADIOGRAPHIC FINDING IN THE CHEST. TECHNICAL DOCUMENTATION: JOB ID: [id number] [place]-72 2010 [employer]- All Rights Reserved Reading location - IP/workstation name: [email or web address]
[2018-03-20 20:13] LABS: ALANINE AMINOTRANSFERASE 39 U/L (9-52); ALBUMIN 3.8 g/dL (3.5-5.0); ALKALINE PHOSPHATASE 75 U/L (38-126); ANION GAP 11 (5-19); ASPARTATE AMINO TRANSFERASE 29 U/L (14-36); BILIRUBIN,DIRECT 0.3 mg/dL (0.0-0.4); BILIRUBIN,TOTAL 0.8 mg/dL (0.2-1.3); BLOOD UREA NITROGEN 21 mg/dL (7-20); CALCIUM 10.2 mg/dL (8.4-10.2); CARBON DIOXIDE 31 mmol/L (22-30); CHLORIDE 99 mmol/L (98-107); GLUCOSE 122 mg/dL (75-110); LIPASE 50.5 U/L (23-300); POTASSIUM 4.2 mmol/L (3.6-5.0); TOTAL PROTEIN 6.6 g/dL (6.3-8.2)
[2018-03-20] MEDS ORDERED: PHENAZOPYRIDINE HCL 200 MG TABLET PO ONE (21:19)
[2018-03-20 21:30] VITALS: BP 108/59
== END 2018-03-20 21:30 | disposition home or self-care (01) ==
LOC: ER 18:19
DX: N30.00 Acute cystitis without hematuria (principal); R05 Cough; R10.9 Unspecified abdominal pain; R53.1 Weakness; R10.2 Pelvic and perineal pain; R03.0 Elevated blood-pressure reading, without diagnosis of hypertension; E78.00 Pure hypercholesterolemia, unspecified; I10 Essential (primary) hypertension; E03.9 Hypothyroidism, unspecified; I25.10 Atherosclerotic heart disease of native coronary artery without angina pectoris; Z88.3 Allergy status to other anti-infective agents; Z88.6 Allergy status to analgesic agent; Z88.2 Allergy status to sulfonamides; Z87.891 Personal history of nicotine dependence; Z90.710 Acquired absence of both cervix and uterus; Z90.49 Acquired absence of other specified parts of digestive tract
CPT/HCPCS: 94640 ×2; 99284; 96361; 96365; 36415; 87086; 83690; 85025; 80053; 81001; 71046; A9270 ×3; J0696; J7030; J3490; J7620

== ENCOUNTER 2018-03-25 19:49 | Emergency (ER) | payer MEDICARE, OTHER ==
--- NOTE | 2018-03-25 20:08 | ER Document Report ---
ED Medical Screen (RME) - General Chief Complaint: Altered Mental Status Stated Complaint: POSSIBLE ALTERED MENTAL STATUS Time Seen by Provider: 03/25/18 20:00 Notes: 77 years old female presents today with shortness of breath cough swelling of lower extremity, lower abdominal pain with a history of UTI, general malaise and feeling weak, temperature of 101 this evening. She has a history of frequent UTI and possible congestive heart failure. I have greeted and performed a rapid initial assessment of this patient. A comprehensive ED assessment and evaluation of the patient, analysis of test results and completion of the medical decision making process will be conducted by additional ED providers. PHYSICAL EXAMINATION: GENERAL: Appears to be, general malaise noted, pale HEAD: Atraumatic, normocephalic. EYES: Pupils equal round extraocular movements intact, conjunctiva are normal. ENT: Nares patent NECK: Normal range of motion LUNGS: Bilateral crackles throughout the lung field particularly lower lungs, no wheezing. Inspiratory crackles Cardiovascular system normal S1-S2- Musculoskeletal: Normal range of motion NEUROLOGICAL: Normal speech, normal gait. PSYCH: Normal mood, normal affect. SKIN: Warm, Dry, normal turgor, no rashes or lesions noted. TRAVEL OUTSIDE OF THE [place] IN LAST 30 DAYS: No - Related Data Allergies/Adverse Reactions: ciprofloxacin [Ciprofloxacin] Allergy (Severe, Verified 05/19/17 11:04) levofloxacin [From Levaquin] Allergy (Severe, Verified 05/19/17 11:04) codeine [Codeine] Allergy (Verified 05/19/17 11:04) Sulfa (Sulfonamide Antibiotics) Allergy (Verified 03/20/18 18:21) Past Medical History - Past Medical History Cardiac Medical History: Reports: Hx Coronary Artery Disease, Hx Hypercholesterolemia, Hx Hypertension Denies: Hx Heart Attack Pulmonary Medical History: Reports: Hx Bronchitis, Hx Pneumonia, Hx Sleep Apnea Denies: Hx Asthma, Hx COPD, Hx Tuberculosis Neurological Medical History: Reports: Hx Seizures. Denies: Hx Cerebrovascular Accident Endocrine Medical History: Reports: Hx Hypothyroidism Renal/ Medical History: Denies: Hx Peritoneal Dialysis Malignancy Medical History: Reports: Hx Breast Cancer - S/P LUMPECTOMY, CHEMO Tx , RAD. Tx GI Medical History: Reports: Hx Gastroesophageal Reflux Disease - incin, Hx Irritable Bowel. Denies: Hx Hepatitis, Hx Hiatal Hernia - HAD UNIQUE, Hx Ulcer Musculoskeltal Medical History: Reports Hx Arthritis Psychiatric Medical History: Reports: Hx Bipolar Disorder, Hx Depression Infectious Medical History: Denies: Hx Hepatitis Past Surgical History: Reports: Hx Abdominal Surgery - Jesus Fundoplication, Hx Appendectomy, Hx Breast Surgery, Hx Cholecystectomy, Hx Hysterectomy, Hx Tonsillectomy. Denies: Hx Mastectomy, Hx Open Heart Surgery, Hx Pacemaker - Immunizations Hx Diphtheria, Pertussis, Tetanus Vaccination: Yes Doctor's Discharge - Discharge Referrals: USHA MADRIGAL MD [Primary Care Provider] - Follow up as needed
--- NOTE | 2018-03-25 20:47 | RADIOLOGY REPORT (SQ) ---
EXAM DESCRIPTION: CHEST SINGLE VIEW COMPLETED DATE/TIME: 03/25/2018 8:27 pm REASON FOR STUDY: SOB COMPARISON: 03/20/2018 EXAM PARAMETERS: NUMBER OF VIEWS: One view. TECHNIQUE: Single frontal radiographic view of the chest acquired. RADIATION DOSE: NA LIMITATIONS: None. FINDINGS: LUNGS AND PLEURA: No opacities, masses or pneumothorax. No pleural effusion. MEDIASTINUM AND HILAR STRUCTURES: No masses. Contour normal. HEART AND VASCULAR STRUCTURES: Heart normal in size. Normal vasculature. BONES: No acute findings. HARDWARE: There is an injection port on the right. OTHER: No other significant finding. IMPRESSION: NO ACUTE RADIOGRAPHIC FINDING IN THE CHEST. TECHNICAL DOCUMENTATION: JOB ID: [id number] [email or web address]- All Rights Reserved Reading location - IP/workstation name: [email or web address]
[2018-03-25 20:59] LABS: ABSOLUTE BASOPHILS # (AUTO) 0.1 10^3/uL (0.0-0.2); ABSOLUTE EOSINOPHILS # (AUTO) 0.5 10^3/uL (0.0-0.6); ABSOLUTE LYMPHOCYTES (AUTO) 1.3 10^3/uL (0.5-4.7); ABSOLUTE MONOCYTES (AUTO) 0.5 10^3/uL (0.1-1.4); BASOPHILS % (AUTO) 0.5 % (0-2); EOSINOPHILS % (AUTO) 3.3 % (0-6); HEMATOCRIT 36.2 % (36.0-47.0); HEMOGLOBIN 11.8 g/dL (12.0-15.5); LYMPHOCYTES % (AUTO) 8.7 % (13-45); MEAN CORPUSCULAR HEMOGLOBIN 30.9 pg (27.0-33.4); MEAN CORPUSCULAR HGB CONC 32.5 g/dL (32.0-36.0); MEAN CORPUSCULAR VOLUME 95 fl (80-97); MONOCYTES % (AUTO) 3.6 % (3-13); PLATELET COUNT 271 10^3/uL (150-450); RED BLOOD COUNT 3.81 10^6/uL (3.72-5.28); RED CELL DISTRIBUTION WIDTH 13.6 % (11.5-14.0); SEGMENTED NEUTROPHILS % (AUTO) 83.9 % (42-78); TOTAL CELLS COUNTED % (AUTO) 100 %; WHITE BLOOD COUNT 14.4 10^3/uL (4.0-10.5)
[2018-03-25 21:01] LABS: VENOUS BLOOD BASE EXCESS 5.9 mmol/L; VENOUS BLOOD HCO3 30.7 mmol/L (20-32); VENOUS BLOOD PCO2 45.3 mmHg (35-63); VENOUS BLOOD PH 7.45 (7.30-7.42)
[2018-03-25 21:04] LABS: INTERNATIONAL RATION (INR) 0.95; PROTHROMBIN TIME 13.1 SEC (11.4-15.4)
[2018-03-25] MEDS ORDERED: NORMAL SALINE 1000 ML 1,000 ML IV ONE ×2 (21:12→23:38)
[2018-03-25 21:13] LABS: ALANINE AMINOTRANSFERASE 44 U/L (9-52); ALBUMIN 3.5 g/dL (3.5-5.0); ALKALINE PHOSPHATASE 69 U/L (38-126); ANION GAP 12 (5-19); ASPARTATE AMINO TRANSFERASE 35 U/L (14-36); BILIRUBIN,TOTAL 0.4 mg/dL (0.2-1.3); BLOOD UREA NITROGEN 8 mg/dL (7-20); CALCIUM 9.5 mg/dL (8.4-10.2); CARBON DIOXIDE 27 mmol/L (22-30); CHLORIDE 102 mmol/L (98-107); CREATINE KINASE 39 U/L (30-135); GLUCOSE 108 mg/dL (75-110); POTASSIUM 3.8 mmol/L (3.6-5.0); SODIUM 140.9 mmol/L (137-145); TOTAL PROTEIN 6.2 g/dL (6.3-8.2)
[2018-03-25 21:24] LABS: CREATINE KINASE MB 0.25 ng/mL (<4.55); NT PRO BNP 637 pg/mL (<450)
[2018-03-25 21:27] LABS: TROPONIN I < 0.012 ng/mL
--- NOTE | 2018-03-25 22:18 | ER Document Report ---
ED General - General Chief Complaint: Altered Mental Status Stated Complaint: POSSIBLE ALTERED MENTAL STATUS Time Seen by Provider: 03/25/18 20:00 Notes: Patient is a 77-year-old female who presents emergency presents today with a chief complaint of altered mental status and generalized abdominal discomfort. Daughter at the bedside states that they presented here on March 20 she was diagnosed with UTI and discharged home. She states that her symptoms initially started about a week ago with a complaint of suprapubic and left lower quadrant sharp stabbing pains with associated constipation. She states that she has had decreased appetite with nausea and belching. Due to previous Jesus she has difficulty vomiting. Daughter states that since she started the Keflex her pain has become more diffuse and worsening in severity now more generalized in the left lower quadrant. States her last bowel movement was yesterday. Does admit to history of diverticulitis. Primary care is with Dr. Pierce Campos farm laborer with Dr. Sigala Allergies Levaquin, Cipro, sulfa, codeine Past medical history significant for rheumatoid arthritis, hypertension, hyperlipidemia, hypothyroidism, GERD with previous hiatal hernia, history of breast cancer status post lumpectomy and chemoradiation, previous stroke, trigeminal neuralgia Past surgical history significant for Jesus fundoplication, microvascular decompression bilaterally for trigeminal neuralgia, previous hysterectomy, left partial knee reconstruction, previous left breast lumpectomy, previous left breast debridement with wound VAC Social history: Admits to former tobacco user, denies any alcohol or drug use. Patient lives alone but her daughter lives at home next door and checks on her daily. TRAVEL OUTSIDE OF THE [place] IN LAST 30 DAYS: No - Related Data Allergies/Adverse Reactions: ciprofloxacin [Ciprofloxacin] Allergy (Severe, Verified 05/19/17 11:04) levofloxacin [From Levaquin] Allergy (Severe, Verified 05/19/17 11:04) codeine [Codeine] Allergy (Verified 05/19/17 11:04) Sulfa (Sulfonamide Antibiotics) Allergy (Verified 03/20/18 18:21) Past Medical History - Social History Smoking Status: Never Smoker Chew tobacco use (# tins/day): No Frequency of alcohol use: None Drug Abuse: None Family History: Reviewed & Not Pertinent, CAD Patient has suicidal ideation: No Patient has homicidal ideation: No - Past Medical History Cardiac Medical History: Reports: Hx Coronary Artery Disease, Hx Hypercholesterolemia, Hx Hypertension Denies: Hx Heart Attack Pulmonary Medical History: Reports: Hx Bronchitis, Hx Pneumonia, Hx Sleep Apnea Denies: Hx Asthma, Hx COPD, Hx Tuberculosis Neurological Medical History: Reports: Hx Seizures. Denies: Hx Cerebrovascular Accident Endocrine Medical History: Reports: Hx Hypothyroidism Renal/ Medical History: Denies: Hx Peritoneal Dialysis Malignancy Medical History: Reports: Hx Breast Cancer - S/P LUMPECTOMY, CHEMO Tx , RAD. Tx GI Medical History: Reports: Hx Gastroesophageal Reflux Disease - incin, Hx Irritable Bowel. Denies: Hx Hepatitis, Hx Hiatal Hernia - HAD UNIQUE, Hx Ulcer Musculoskeltal Medical History: Reports Hx Arthritis Psychiatric Medical History: Reports: Hx Bipolar Disorder, Hx Depression Infectious Medical History: Denies: Hx Hepatitis Past Surgical History: Reports: Hx Abdominal Surgery - Jesus Fundoplication, Hx Appendectomy, Hx Breast Surgery, Hx Cholecystectomy, Hx Hysterectomy, Hx Tonsillectomy. Denies: Hx Mastectomy, Hx Open Heart Surgery, Hx Pacemaker - Immunizations Hx Diphtheria, Pertussis, Tetanus Vaccination: Yes Hx Pneumococcal Vaccination: 07/27/13 Review of Systems - Review of Systems Constitutional: Fever - 100.5 EENT: No symptoms reported Cardiovascular: No symptoms reported Respiratory: No symptoms reported Gastrointestinal: See HPI - is is Genitourinary: No symptoms reported Musculoskeletal: No symptoms reported Neurological/Psychological: See HPI -: Yes All other systems reviewed and negative Physical Exam - Vital signs Vitals: Temp Pulse Resp BP Pulse Ox 100.7 F H 107 H 24 H 106/74 89 L 03/25/18 19:57 03/25/18 19:57 03/25/18 19:57 03/25/18 19:57 03/25/18 19:57 - Notes Notes: PHYSICAL EXAM GENERAL: Alert, interacts well. HEAD: Normocephalic, atraumatic. EYES: Pupils equal, round, and reactive to light. Extraocular movements intact. ENT: Oral mucosa moist, tongue midline. NECK: Full range of motion. Supple. Trachea midline. LUNGS: Clear to auscultation bilaterally, no wheezes, rales, or rhonchi. No respiratory distress. HEART: Regular rate and rhythm. No murmurs, gallops, or rubs. ABDOMEN: Lower abdominal distention with tenderness to palpation without any rebound tenderness. No guarding, rebound, or rigidity.. Bowel sounds present in all 4 quadrants. EXTREMITIES: Moves all 4 extremities spontaneously. 2+ edema, radial and dorsalis pedis pulses 2/4 bilaterally. No cyanosis. NEUROLOGICAL: Alert and oriented x4. Face symmetric. Tongue protrudes midline. Extraocular motions intact. Pupils are 2 mm and equally reactive. Normal speech. 5 out of 5 strength in both the distal and proximal upper and lower extremities bilaterally. Sensation is grossly intact throughout. The a PSYCH: Normal affect, normal mood. SKIN: Warm, dry, normal turgor. No rashes or lesions noted. Course - Re-evaluation Re-evalutation: 03/25/18 22:23 patient is an 77-year-old female who isInitially hypotensive with systolics in the 90s is responded well to IV saline bolus. Patient was satting 90% on room air which daughter states is common for her but is unaware of any underlying congestive heart failure, COPD. she has a lactic acid is 0.8 without concerns for underlying sepsis. 03/26/18 01:29 CT shows evidence of diverticulitis without any evidence of perforation, abscess or fistula. Patient's vital signs remained stable. Repeat abdominal exams with focal tenderness but improvement with Tylenol. Patient tolerating p.o. without any difficulty. Afebrile. No evidence of tachycardia, hypotension. Will discharge home on p.o. antibiotics and to follow-up with gastroenterology the next 24-48 hours. - Vital Signs Vital signs: Temp Pulse Resp BP Pulse Ox 100.7 F H 107 H 21 H 104/70 92 03/25/18 19:57 03/25/18 19:57 03/26/18 01:01 03/26/18 01:00 03/26/18 01:01 - Laboratory Result Diagrams: 03/25/18 20:45 03/25/18 20:45 Laboratory results interpreted by me: 03/25/18 03/25/18 03/25/18 20:45 20:45 20:45 WBC 14.4 H Hgb 11.8 L Seg Neutrophils % 83.9 H Lymphocytes % 8.7 L Absolute Neutrophils 12.0 H VBG pH 7.45 H NT-Pro-B Natriuret Pep Total Protein 6.2 L Urine Nitrite Urine Urobilinogen Urine Ascorbic Acid 03/25/18 03/25/18 20:45 23:04 WBC Hgb Seg Neutrophils % Lymphocytes % Absolute Neutrophils VBG pH NT-Pro-B Natriuret Pep 637 H Total Protein Urine Nitrite POSITIVE H Urine Urobilinogen 4.0 H Urine Ascorbic Acid 40 H - Diagnostic Test Radiology reviewed: Image reviewed, Reports reviewed - EKG Interpretation by Me EKG shows normal: Sinus rhythm Rate: Normal Rhythm: NSR When compared to previous EKG there are: No significant change Discharge - Discharge Clinical Impression: Diverticulitis, Resistance to quinolones and fluoroquinolones Condition: Good Disposition: HOME, SELF-CARE Instructions: Diverticulitis ([facility]) Additional Instructions: Please return with any worsening fever, pain, symptoms worrisome to you Prescriptions: Amoxicillin/Potassium Clav [Augmentin Xr 1,000-62.5 Tab] 2 each PO BID 10 Days tab.er.12h Metoclopramide HCl [Reglan 10 mg Tablet] 1 - 2 tab PO ASDIR PRN #25 tablet PRN Reason: Referrals: USHA MADRIGAL MD [Primary Care Provider] - Follow up as needed MARYCRUZ SIGALA MD [ACTIVE STAFF] - 03/27/18
--- NOTE | 2018-03-25 22:56 | RADIOLOGY REPORT (SQ) ---
EXAM DESCRIPTION: CT abdomen and pelvis with contrast. CLINICAL HISTORY: LLQ abdominal pain COMPARISON: None Available TECHNIQUE: Contiguous axial images of the abdomen and pelvis were obtained after the administration of intravenous contrast followed by reconstruction images.This exam was performed according to our departmental dose-optimization program, which includes automated exposure control, adjustment of the mA and/or kV according to patient size and/or use of iterative reconstruction technique. FINDINGS: There is mucosal thickening of the distal ascending colon and sigmoid colon with stranding of the adjacent fat and diverticuli compatible with acute diverticulitis. No abnormal fluid collection to suggest a drainable abscess. There is no free air. Patient is status post hysterectomy. Calcifications within the pelvis compatible with phleboliths. Linear opacities within the lungs may represent scar versus subsegmental atelectasis. There is a hiatal hernia. Patient is status post cholecystectomy. The liver, spleen, pancreas and kidneys are within normal limits. There is no hydronephrosis or renal stones. Adrenal glands are within normal limits. Aorta is of normal caliber and tapering. There is no free fluid in the abdomen or pelvis. There is no bowel obstruction. The appendix was not visualized. There is no pericecal inflammation. There is scoliosis of the lumbar spine. IMPRESSION: Findings compatible with acute diverticulitis.
--- NOTE | 2018-03-25 23:13 | EKG REPORT ---
SEVERITY:- NORMAL ECG - SINUS RHYTHM : Confirmed by: Evelia Franks 25-Mar-2018 23:13:02
[2018-03-25 23:18] LABS: APPEARANCE,URINE CLEAR; BILIRUBIN,URINE NEGATIVE (NEGATIVE); COLOR,URINE AMBER; GLUCOSE, URINE NEGATIVE (NEGATIVE); KETONES,URINE NEGATIVE (NEGATIVE); LEUKOCYTE ESTERASE,URINE NEGATIVE (NEGATIVE); NITRITE,URINE POSITIVE (NEGATIVE); PROTEIN,URINE NEGATIVE (NEGATIVE); URINE SPECIFIC GRAVITY 1.023
[2018-03-25] MEDS ORDERED: CEFTRIAXONE 1 GM/D5W RTU 1 GM/50 ML RTUPB IV ONE (23:37)
[2018-03-25] MEDS ORDERED: ACETAMINOPHEN 325 MG TABLET PO ONE (23:49)
[2018-03-26 02:09] VITALS: BP 102/68
== END 2018-03-26 02:10 | disposition home or self-care (01) ==
LOC: ER 19:49
DX: R41.82 Altered mental status, unspecified (principal); R06.02 Shortness of breath; R05 Cough; R53.81 Other malaise; Z88.2 Allergy status to sulfonamides; Z88.3 Allergy status to other anti-infective agents; Z87.440 Personal history of urinary (tract) infections; Z90.49 Acquired absence of other specified parts of digestive tract; Z90.710 Acquired absence of both cervix and uterus; Z87.891 Personal history of nicotine dependence; K57.92 Diverticulitis of intestine, part unspecified, without perforation or abscess without bleeding
CPT/HCPCS: 93005; 36415; 87040; 87086; 82553; 82550; 85025; 85610; 80053; 81001; 84484; 82803; 83605; 83880; 71045; 74177; 93010; A9270; J7030 ×2; J0696

== ENCOUNTER 2018-03-26 14:04 | Inpatient (IN) | payer MEDICARE, OTHER ==
[2018-03-26] MEDS ORDERED: NORMAL SALINE 1000 ML 500 ML IV PRN (14:25)
--- NOTE | 2018-03-26 14:35 | ER Document Report ---
ED GI/ - General Chief Complaint: Abdominal Pain Stated Complaint: ABDOMINAL PAIN Time Seen by Provider: 03/26/18 14:21 Notes: Chief complaint: abdominal pain: Abdominal pain History of complain:( obtained from----patient) 77 years old female yesterday was seen in the ER and discharged home. Presents back again with a left sided abdominal pain as well as left upper quadrant abdominal pain. Even slight movement or any bumps on the street causes her severe pain. Denies any diarrhea or constipation but nauseous. Had fever and chills. She was given ceftriaxone yesterday and an amoxicillin and sent home from the ER. Onset: As the bowel gradual Duration: Last few days Severity: Moderate to severe Quality: Sharp pain Context: Diverticulitis Exacerbating factor and relieving factors: As described above REVIEW OF SYSTEMS: CONSTITUTIONAL : Denies fever, chills, or sweats. Denies recent illness. EENT: Denies eye, ear, throat, or mouth pain or symptoms. Denies nasal or sinus congestion or discharge. Denies throat, tongue, or mouth swelling or difficulty swallowing. CARDIOVASCULAR: Denies chest pain. Denies palpitations or racing or irregular heart beat. Denies ankle edema. RESPIRATORY: Denies cough, cold, or chest congestion. Denies shortness of breath, difficulty breathing, or wheezing. GASTROINTESTINAL: Denies distention. Denies , vomiting, or diarrhea. Denies blood in vomitus, stools, or per rectum. Denies black, tarry stools. Denies constipation. GENITOURINARY: Denies difficulty urinating, painful urination, burning, frequency, blood in urine, or discharge. FEMALE GENITOURINARY: Denies vaginal bleeding, heavy or abnormal periods, irregular periods. Denies vaginal discharge or odor. MUSCULOSKELETAL: Denies back or neck pain or stiffness. Denies joint pain or swelling. SKIN: Denies rash, lesions or sores. HEMATOLOGIC : Denies easy bruising or bleeding. LYMPHATIC: Denies swollen, enlarged glands. NEUROLOGICAL: Denies confusion or altered mental status. Denies passing out or loss of consciousness. Denies dizziness or lightheadedness. Denies headache. Denies weakness or paralysis or loss of use of either side. Denies problems with gait or speech. Denies sensory loss, numbness, or tingling. Denies seizures. PSYCHIATRIC: Denies anxiety or stress. Denies depression, suicidal ideation, or homicidal ideation. ALL OTHER SYSTEMS REVIEWED AND NEGATIVE. PHYSICAL EXAMINATION: GENERAL: Well-appearing, well-nourished and in mild to moderate acute distress. HEAD: Atraumatic, normocephalic. EYES: Pupils equal round and reactive to light, extraocular movements intact, conjunctiva are normal. ENT: Nares patent, oropharynx clear without exudates. Moist mucous membranes. NECK: Normal range of motion, supple without lymphadenopathy LUNGS: Breath sounds clear to auscultation bilaterally and equal. No wheezes rales or rhonchi. HEART: Regular rate and rhythm without murmurs ABDOMEN: Soft, tender over the left upper quadrant and left side of the abdomen. Nondistended abdomen. No guarding, no rebound. No masses appreciated. Female : deferred Musculoskeletal: Normal range of motion, no pitting or edema. No cyanosis. NEUROLOGICAL: Cranial nerves grossly intact. Normal speech, normal gait. Normal sensory, motor exams PSYCH: Normal mood, normal affect. SKIN: Warm, Dry, normal turgor, no rashes or lesions noted. Dictation was performed using [employer] voice recognition software TRAVEL OUTSIDE OF THE [place] IN LAST 30 DAYS: No - Related Data Allergies/Adverse Reactions: ciprofloxacin [Ciprofloxacin] Allergy (Severe, Verified 03/26/18 14:11) levofloxacin [From Levaquin] Allergy (Severe, Verified 03/26/18 14:11) codeine [Codeine] Allergy (Verified 03/26/18 14:11) Sulfa (Sulfonamide Antibiotics) Allergy (Verified 03/26/18 14:11) Past Medical History - Social History Smoking Status: Former Smoker Chew tobacco use (# tins/day): No Frequency of alcohol use: None Drug Abuse: None Family History: Reviewed & Not Pertinent, CAD Patient has suicidal ideation: No Patient has homicidal ideation: No - Past Medical History Cardiac Medical History: Reports: Hx Coronary Artery Disease, Hx Hypercholesterolemia, Hx Hypertension Denies: Hx Heart Attack Pulmonary Medical History: Reports: Hx Bronchitis, Hx Pneumonia, Hx Sleep Apnea Denies: Hx Asthma, Hx COPD, Hx Tuberculosis Neurological Medical History: Reports: Hx Seizures. Denies: Hx Cerebrovascular Accident Endocrine Medical History: Reports: Hx Hypothyroidism Renal/ Medical History: Denies: Hx Peritoneal Dialysis Malignancy Medical History: Reports: Hx Breast Cancer - S/P LUMPECTOMY, CHEMO Tx , RAD. Tx GI Medical History: Reports: Hx Gastroesophageal Reflux Disease - incin, Hx Irritable Bowel. Denies: Hx Hepatitis, Hx Hiatal Hernia - HAD UNIQUE, Hx Ulcer Musculoskeltal Medical History: Reports Hx Arthritis Psychiatric Medical History: Reports: Hx Bipolar Disorder, Hx Depression Infectious Medical History: Denies: Hx Hepatitis Past Surgical History: Reports: Hx Abdominal Surgery - Jesus Fundoplication, Hx Appendectomy, Hx Breast Surgery, Hx Cholecystectomy, Hx Hysterectomy, Hx Tonsillectomy. Denies: Hx Mastectomy, Hx Open Heart Surgery, Hx Pacemaker - Immunizations Hx Diphtheria, Pertussis, Tetanus Vaccination: Yes Hx Pneumococcal Vaccination: 07/27/13 Review of Systems - Review of Systems Notes: Dictated Physical Exam - Vital signs Vitals: Temp Pulse Resp BP Pulse Ox 100.1 F 108 H 22 H 104/68 87 L 03/26/18 14:09 03/26/18 14:09 03/26/18 14:09 03/26/18 14:09 03/26/18 14:09 - Notes Notes: Dictated Course - Re-evaluation Re-evalutation: 03/26/18 14:[address] Aguilar was called and case was discussed and patient is being admitted directly to the floor. - Vital Signs Vital signs: Temp Pulse Resp BP Pulse Ox 100.1 F 108 H 20 104/68 87 L 03/26/18 14:09 03/26/18 14:09 03/26/18 14:15 03/26/18 14:09 03/26/18 14:09 Discharge - Discharge Clinical Impression: Acute diverticulitis of intestine Condition: Stable Disposition: ADMITTED INPATIENT Admitting Provider: Hospitalist Unit Admitted: Telemetry Referrals: USHA MADRIGAL MD [Primary Care Provider] - Follow up as needed
[2018-03-26] MEDS ORDERED: RINGERS SOLUTION,LACTATED 1,000 ML IV ONE (15:18)
[2018-03-26 15:22] LABS: ABSOLUTE BASOPHILS # (AUTO) 0.1 10^3/uL (0.0-0.2); ABSOLUTE EOSINOPHILS # (AUTO) 0.6 10^3/uL (0.0-0.6); ABSOLUTE LYMPHOCYTES (AUTO) 1.3 10^3/uL (0.5-4.7); ABSOLUTE MONOCYTES (AUTO) 0.6 10^3/uL (0.1-1.4); ABSOLUTE NEUT (AUTO) 9.8 10^3/uL (1.7-8.2); BASOPHILS % (AUTO) 0.9 % (0-2); EOSINOPHILS % (AUTO) 4.7 % (0-6); HEMATOCRIT 33.7 % (36.0-47.0); HEMOGLOBIN 11.1 g/dL (12.0-15.5); LYMPHOCYTES % (AUTO) 10.2 % (13-45); MEAN CORPUSCULAR HEMOGLOBIN 31.3 pg (27.0-33.4); MEAN CORPUSCULAR VOLUME 95 fl (80-97); PLATELET COUNT 264 10^3/uL (150-450); RED BLOOD COUNT 3.54 10^6/uL (3.72-5.28); RED CELL DISTRIBUTION WIDTH 13.7 % (11.5-14.0); SEGMENTED NEUTROPHILS % (AUTO) 79.2 % (42-78); TOTAL CELLS COUNTED % (AUTO) 100 %; WHITE BLOOD COUNT 12.4 10^3/uL (4.0-10.5)
[2018-03-26] MEDS ORDERED: PIPERACILLIN SODIUM/TAZOBACTAM 4.5 GM in NORMAL SALINE 100 ML IV ONE (15:30)
--- NOTE | 2018-03-26 15:36 | PDOC H&P ---
History of Present Illness Admission Date/PCP: 03/26/18 14:47 USHA MADRIGAL MD Patient complains of: Abdominal pain History of Present Illness: ERIC PRETTY is a 77 year old female past medical history of chronic hypotension and diverticulitis that yesterday was seen in the ER and discharged home. Presents back again with a left sided abdominal pain as well as left upper quadrant abdominal pain. Even slight movement or any bumps on the street causes her severe pain. Denies any diarrhea or constipation but nauseous. Had fever and chills. She was given ceftriaxone yesterday and an amoxicillin and sent home from the ER. Appears the patient does have an issue with constipation. She initially thought that her symptoms were triggered by an impaction last week. The patient did have a bowel movement on Friday and subsequently had persistent abdominal pain since that time. She states that her symptoms initially started about a week ago with a complaint of suprapubic and left lower quadrant sharp stabbing pains with associated constipation. She states that she has had decreased appetite with nausea and belching. Due to previous Jesus she has difficulty vomiting did manage to have an episode of vomiting Friday before presentation. Daughter states that since she started the Keflex her pain has become more diffuse and worsening in severity now more generalized in the left lower quadrant. She was sent home yesterday with large dose of Augmentin the patient's symptoms did persist. Patient is allergic to fluoroquinolones. The patient was referred to the hospitalist for admission and management due to failure of antibiotic treatment with Keflex and Augmentin. 03/25/18 20:45 WBC 14.4 H Selected Entries 03/25/18 03/26/18 03/26/18 19:57 14:09 14:36 Temperature 100.7 F H 100.1 F Heart Rate ( 101 Monitors) Blood Pressure 99/68 L Home Meds Table Cephalexin Monohydrate [Keflex 500 mg Capsule] 500 mg PO BID 7 Days capsule 03/20/18 Amoxicillin/Potassium Clav [Augmentin Xr 1,000-62.5 Tab] 2 each PO BID 10 Days tab.er.12h 03/26/18 Past Medical History Cardiac Medical History: Reports: Coronary Artery Disease, Hyperlipidema, Other - Hypotension Pulmonary Medical History: Reports: Bronchitis, Pneumonia, Sleep Apnea Neurological Medical History: Reports: Seizures, Other - Trigeminal neuralgia Endocrine Medical History: Reports: Hypothyroidism Malignancy Medical History: Reports: Breast Cancer - S/P LUMPECTOMY, CHEMO Tx, RAD. Tx GI Medical History: Reports: Gastroesophageal Reflux Disease Musculoskeltal Medical History: Reports: Arthritis Psychiatric Medical History: Reports: Bipolar Disorder, Depression Hematology: Reports: Anemia Past Surgical History Past Surgical History: Reports: Appendectomy, Cholecystectomy, Hysterectomy, Tonsillectomy, Other - Niesen fundoplication Social History Information Source: Patient Occupation: Retired Lives with: Family Smoking Status: Former Smoker - Stopped smoking 35 years ago. Frequency of Alcohol Use: None Hx Recreational Drug Use: No Drugs: None Hx Prescription Drug Abuse: No - Advance Directive Resuscitation Status: Full Code Surrogate healthcare decision maker:: Elana Limon [phone] Family History Family History: CAD, Hypertension, Malignancy - Skin, leukemia, CKD Parental Family History Reviewed: Yes Children Family History Reviewed: Yes Sibling(s) Family History Reviewed.: Yes - Sister with ESRD Medication/Allergy Home Medications: Amoxicillin/Potassium Clav [Augmentin Xr 1,000-62.5 Tab] 2 tab PO BID 03/26/18 Ascorbic Acid [Vitamin C 500 mg Tablet] 500 mg PO DAILY 03/26/18 Aspirin [Aspirin EC] 81 mg PO QHS 03/26/18 Biotin 5,000 mcg PO DAILY 03/26/18 Calcium Citrate/Vitamin D3 [Calcium Citrate - Vit D3 Tab] 1 each PO DAILY Carbamazepine [Carbamazepine ER] 100 mg PO DAILY 03/26/18 Cholecalciferol (Vitamin D3) [Vitamin D3 1000 Unit Tablet] 1,000 unit PO DAILY 03/26/18 Clonazepam [Klonopin 1 mg Tablet] 1 mg PO DAILY 03/26/18 Cyanocobalamin (Vitamin B-12) [Vitamin B12] 1,000 mcg PO DAILY 03/26/18 Ferrous Sulfate [Iron] 65 mg PO DAILY 03/26/18 Furosemide [Lasix 20 mg Tablet] 20 mg PO BID 03/26/18 Gabapentin [Neurontin] 1,200 mg PO QHS 03/26/18 Levothyroxine Sodium [Synthroid] 75 mcg PO DAILY 03/26/18 Lisinopril [Prinivil 10 mg Tablet] 10 mg PO Q3D 03/26/18 Metoclopramide HCl [Reglan 10 mg Tablet] 10 mg PO ASDIR PRN 03/26/18 Metoprolol Succinate [Toprol Xl 50 mg Tab.sr] 50 mg PO Q3D 03/26/18 Multivit-Min/Iron/Folic/Lutein [Centrum Silver Women Tablet] 1 each PO DAILY Ondansetron [Zofran Odt] 8 mg PO Q6HP PRN 03/26/18 Potassium Chloride [K-Tab ER] 20 meq PO DAILY 03/26/18 Simvastatin [Zocor 40 mg Tablet] 40 mg PO QHS 03/26/18 Allergies/Adverse Reactions: ciprofloxacin [Ciprofloxacin] Allergy (Severe, Verified 03/26/18 14:11) levofloxacin [From Levaquin] Allergy (Severe, Verified 03/26/18 14:11) codeine [Codeine] Allergy (Verified 03/26/18 14:11) Sulfa (Sulfonamide Antibiotics) Allergy (Verified 03/26/18 14:11) Review of Systems Constitutional: PRESENT: chills, fatigue, fever(s), night sweats. ABSENT: headache(s), weight gain, weight loss Eyes: ABSENT: visual disturbances Ears: ABSENT: hearing changes Cardiovascular: ABSENT: chest pain, dyspnea on exertion, edema, orthropnea, palpitations Respiratory: ABSENT: cough, hemoptysis Gastrointestinal: PRESENT: abdominal pain, constipation, diarrhea, nausea, vomiting. ABSENT: hematemesis, hematochezia Genitourinary: ABSENT: dysuria, hematuria Musculoskeletal: ABSENT: joint swelling Integumentary: ABSENT: rash, wounds Neurological: PRESENT: confusion. ABSENT: abnormal gait, abnormal speech, dizziness, focal weakness, syncope Psychiatric: ABSENT: anxiety, depression, homidical ideation, suicidal ideation Endocrine: ABSENT: cold intolerance, heat intolerance, polydipsia, polyuria Hematologic/Lymphatic: ABSENT: easy bleeding, easy bruising Physical Exam Vital Signs: Temp Pulse Resp BP Pulse Ox 100.1 F 108 H 24 H 99/68 L 95 03/26/18 14:09 03/26/18 14:09 03/26/18 14:36 03/26/18 14:36 03/26/18 14:36 General appearance: PRESENT: no acute distress, cooperative, well-developed, well-nourished Head exam: PRESENT: atraumatic, normocephalic Eye exam: PRESENT: conjunctiva pink, EOMI, PERRLA. ABSENT: scleral icterus Ear exam: PRESENT: normal external ear exam Mouth exam: PRESENT: dry mucosa, tongue midline Neck exam: ABSENT: carotid bruit, JVD, lymphadenopathy, thyromegaly Respiratory exam: PRESENT: clear to auscultation micheal, symmetrical, unlabored. ABSENT: rales, rhonchi, wheezes Cardiovascular exam: PRESENT: RRR. ABSENT: diastolic murmur, rubs, systolic murmur Pulses: PRESENT: normal dorsalis pedis pul Vascular exam: PRESENT: normal capillary refill GI/Abdominal exam: PRESENT: distended, firm, normal bowel sounds, soft, tenderness. ABSENT: guarding, mass, organolmegaly, rebound Rectal exam: PRESENT: deferred Extremities exam: PRESENT: full ROM. ABSENT: calf tenderness, clubbing, pedal edema Neurological exam: PRESENT: alert - Little delayed, awake, oriented to person, oriented to place, oriented to time, CN II-XII grossly intact. ABSENT: motor sensory deficit Psychiatric exam: PRESENT: appropriate affect, normal mood. ABSENT: homicidal ideation, suicidal ideation Skin exam: PRESENT: dry, intact, warm. ABSENT: cyanosis, rash Results Laboratory Results: 03/25/18 03/25/18 03/25/18 20:45 20:45 20:45 WBC 14.4 H Hgb 11.8 L Hct 36.2 Plt Count 271 PT 13.1 INR 0.95 Sodium 140.9 Potassium 3.8 Chloride 102 Carbon Dioxide 27 BUN 8 Creatinine 0.83 Glucose 108 Lactic Acid Calcium 9.5 Total Bilirubin 0.4 AST 35 ALT 44 Alkaline Phosphatase 69 Creatine Kinase 39 Total Protein 6.2 L Albumin 3.5 03/25/18 03/25/18 03/25/18 20:45 20:45 20:45 VBG pH 7.45 H VBG pCO2 45.3 VBG HCO3 30.7 VBG Base Excess 5.9 CK-MB (CK-2) 0.25 Troponin I < 0.012 NT-Pro-B Natriuret Pep 637 H 03/25/18 23:04 Albumin Urine pH 5.0 Ur Specific [place] 1.023 Urine Protein NEGATIVE Urine Glucose (UA) NEGATIVE Urine Ketones NEGATIVE Urine Blood NEGATIVE Urine Nitrite POSITIVE H Urine Bilirubin NEGATIVE Urine Urobilinogen 4.0 H Ur Leukocyte Esterase NEGATIVE Urine WBC (Auto) 2 Urine RBC (Auto) 44 Squamous Epi Cells Auto 1 03/26/18 15:07 Blood Culture - Pending Blood 03/26/18 14:41 Blood Culture - Pending Blood 03/25/18 23:04 Urine Culture - Preliminary Clean Catch Midstream 03/25/18 22:10 Blood Culture - Pending Blood 03/25/18 20:45 Blood Culture - Pending Blood Assessment & Plan - Diagnosis (1) Acute diverticulitis of intestine Is this a current diagnosis for this admission?: Yes Plan: Patient has failed outpatient treatment with Augmentin. We will admit the patient to telemetry and cover with Zosyn she absolutely cannot tolerate a fluoroquinolone. Keep the patient n.p.o. and give the patient some volume. (2) Early sepsis Is this a current diagnosis for this admission?: Yes Plan: Secondary to #1. Will hydrate and follow. Repeat labs pending. 03/26/18 15:07 WBC 12.4 H 03/26/18 15:07 BLOOD CULTURE [MC] Stat COMPREHENSIVE METABOLIC PANEL [CHEM] Stat 03/26/18 15:31 LACTIC ACID SEPSIS [CHEM] Stat (3) Hypotension, chronic Is this a current diagnosis for this admission?: Yes Plan: It appears the patient has had this issue for a long time. Patient only takes cardiac medications every 72 hours because of this. Will work to maintain a MAP >60. (5) Bipolar depression Is this a current diagnosis for this admission?: Yes Plan: Will continue home medications. (6) Hyperlipemia Qualifiers: Hyperlipidemia type: unspecified Qualified Code(s): E78.5 - Hyperlipidemia , unspecified Is this a current diagnosis for this admission?: Yes Plan: Will continue home medications. (7) Seizure disorder Is this a current diagnosis for this admission?: Yes Plan: Will continue home medications. - Time Time Spent: 50 to 70 Minutes Medications reviewed and adjusted accordingly: Yes Anticipated discharge: Home Within: within 72 hours Disposition: DISPOSITION: The patient is a full code. Pending patient's symptomatology and diagnostic findings will reevaluate in the a.m. The patient will be admitted to telemetry and the patient's expected length of stay will surpass 2 midnights. TIME SPENT: on this admission including assessment, plan, physical examination, family meeting, and patient education is 60 minutes. - Inpatient Certification Based on my medical assessment, after consideration of the patient's comorbidities, presenting symptoms, or acuity I expect that the services needed warrant INPATIENT care.: Yes I certify that my determination is in accordance with my understanding of Medicare's requirements for reasonable and necessary INPATIENT services [42 CFR 412.3e].: Yes Medical Necessity: Failure to Improve With Outpatient Therapy, Need Close Monitoring Due to Risk of Patient Decompensation, Need For IV Fluids Post Hospital Care: D/C Senior Safety Support Manager Documentation
[2018-03-26 15:41] LABS: ALANINE AMINOTRANSFERASE 37 U/L (9-52); ALBUMIN 3.1 g/dL (3.5-5.0); ALKALINE PHOSPHATASE 62 U/L (38-126); ANION GAP 9 (5-19); ASPARTATE AMINO TRANSFERASE 32 U/L (14-36); BILIRUBIN,DIRECT 0.2 mg/dL (0.0-0.4); BILIRUBIN,TOTAL 0.3 mg/dL (0.2-1.3); BLOOD UREA NITROGEN 8 mg/dL (7-20); CARBON DIOXIDE 27 mmol/L (22-30); CHLORIDE 105 mmol/L (98-107); GLUCOSE 98 mg/dL (75-110); POTASSIUM 3.6 mmol/L (3.6-5.0); SODIUM 140.5 mmol/L (137-145); TOTAL PROTEIN 6.1 g/dL (6.3-8.2)
[2018-03-26] MEDS ORDERED: CLONAZEPAM 1 MG TABLET PO PRN (16:37)
[2018-03-26] MEDS ORDERED: ONDANSETRON 4 MG TAB.RAPDIS PO PRN (16:50)
--- NOTE | 2018-03-26 17:36 | RADIOLOGY REPORT (SQ) ---
EXAM DESCRIPTION: CT ABD/PELVIS NO ORAL OR IV COMPLETED DATE/TIME: 03/26/2018 5:13 pm REASON FOR STUDY: FU 03/25, abd pain COMPARISON: CT ABDOMEN PELVIS 03/08/2018, 10/26/2013, 05/19/2013 TECHNIQUE: CT scan of the abdomen and pelvis performed without intravenous or oral contrast. Images reviewed with lung, soft tissue, and bone windows. Reconstructed coronal and sagittal MPR images revi ewed. All images stored on PACS. All CT scanners at this facility use dose modulation, iterative reconstruction, and/or weight based d osing when appropriate to reduce radiation dose to as low as reasonably achievable (ALARA). [facility]: Dose Right [facility]: CareDose [facility]: Dose Right [facility]: Teradose 4D [facility]: Smart [employer] Powertrain RADIATION DOSE: CT Rad equipment meets quality standard of care and radiation dose reduction techniq ues were employed. CTDIvol: 11.4 mGy. DLP: 557 mGy-cm.mGy. LIMITATIONS: None. FINDINGS: LOWER CHEST: No significant findings. No nodules or infiltrates. NON-CONTRASTED LIVER, SPLEEN, ADRENALS: Evaluation limited by lack of IV contrast. No identified sign ificant masses. PANCREAS: No masses. No peripancreatic inflammatory changes. GALLBLADDER: Post cholecystectomy RIGHT KIDNEY AND URETER: No suspicious masses. Assessment limited by lack of IV contrast. No signif icant calcifications. No hydronephrosis or hydroureter. LEFT KIDNEY AND URETER: No suspicious masses. Assessment limited by lack of IV contrast. No signifi cant calcifications. No hydronephrosis or hydroureter. AORTA AND RETROPERITONEUM: No aneurysm. No retroperitoneal masses or adenopathy. BOWEL AND PERITONEAL CAVITY: There is inflammatory change along the descending colon, with stranding in the pericolic fat likely due to diverticulitis. This involves a 15 cm long segment of colon, best shown on coronal images 28-41. No pericolic abscess is identified. No free air or free fluid in th e area of inflammation. Cecum in the right upper quadrant. Remainder of the uncontrasted gastrointe stinal tract unremarkable. APPENDIX: Surgically absent surgically absent. PELVIS, BLADDER, AND ABDOMINAL WALL:No abnormal masses. No free fluid. Bladder normal. Post hysterec siobhan. BONES: No significant findings. OTHER: No other significant finding. IMPRESSION: Descending colon diverticulitis without abscess, similar compared to 03/25/2018 CT abdome n pelvis. COMMENT: Quality ID # [id number]: Final reports with documentation of one or more dose reduction techniques (e.g., Automated exposure control, adjustment of the mA and/or kV according to patient size, use of iterative reconstruction technique) TECHNICAL DOCUMENTATION: JOB ID: [id number] [employer]- All Rights Reserved Reading location - IP/workstation name: [facility]
[2018-03-26] MEDS ORDERED: DOCUSATE SODIUM 100 MG CAPSULE PO SCH (18:00)
[2018-03-26] MEDS: LACTOBACILLUS ACIDOPHILUS 250 MG TAB PO SCH (19:02)
[2018-03-26] MEDS: RINGERS SOLUTION,LACTATED 1,000 ML IV PRN (20:47)
[2018-03-26] MEDS: PIPERACILLIN SODIUM/TAZOBACTAM 4.5 GM in NORMAL SALINE 100 ML IV SCH (20:48)
[2018-03-26] MEDS: SIMVASTATIN 40 MG TABLET PO SCH (21:35)
[2018-03-26] MEDS: GABAPENTIN 400 MG CAPSULE PO SCH (21:35)
[2018-03-26] MEDS: HEPARIN SOD (PORCINE) 5,000 UNIT/ML 1 ML SYRINGE SUBCUT SCH (21:35)
[2018-03-26] MEDS: ASPIRIN 81 MG TABLET, ENT COATED PO SCH (21:35)
[2018-03-26] MEDS ORDERED: CARBAMAZEPINE 100 MG TAB.SR.12H PO ONE (23:15)
[2018-03-27] MEDS ORDERED: CARBAMAZEPINE 100 MG TAB.SR.12H PO ONE (00:37)
[2018-03-27] MEDS: PIPERACILLIN SODIUM/TAZOBACTAM 4.5 GM in NORMAL SALINE 100 ML IV SCH ×4 (03:21→22:25)
[2018-03-27] MEDS: HEPARIN SOD (PORCINE) 5,000 UNIT/ML 1 ML SYRINGE SUBCUT SCH ×3 (06:10→22:26)
[2018-03-27] MEDS: CLONAZEPAM 1 MG TABLET PO SCH (06:10)
[2018-03-27] MEDS ORDERED: FERROUS SULFATE 325 MG TABLET PO SCH (10:00)
[2018-03-27] MEDS ORDERED: CARBAMAZEPINE 100 MG TAB.SR.12H PO SCH (10:00)
[2018-03-27] MEDS: LACTOBACILLUS ACIDOPHILUS 250 MG TAB PO SCH ×2 (11:05→17:22)
[2018-03-27] MEDS: LEVOTHYROXINE SODIUM 0.075 MG TABLET PO SCH (11:05)
[2018-03-27] MEDS: RINGERS SOLUTION,LACTATED 1,000 ML IV PRN (11:07)
--- NOTE | 2018-03-27 14:21 | PDOC PROGRESS REPORT ---
Subjective Progress Note for:: 03/27/18 Subjective:: Patient was easily arousable and tells me that she is feeling better. He does not think she is confused and her family agrees that she is improved in this regard. She is continuing to have lower abdominal pain across the lower abdomen , achy, improving, worse with movement, getting better with time. No nausea or vomiting. Been having loose stools. No bloody stools. No chest pain or difficulty breathing. We discussed her history of noncompliance with oxygen at length. We talked about the importance of oxygen if it is medically indicated. Apparently the patient has sleep apnea but has been unable to tolerate any of the masks does not use any oxygen or other device at night. We discussed the dangers of low oxygen level especially when driving, she does drive her grandchildren around. Reason For Visit: ACUTE DIVERTICULITIS Physical Exam Vital Signs: Temp Pulse Resp BP Pulse Ox 98.8 F 82 18 120/86 H 95 03/27/18 08:42 03/27/18 08:42 03/27/18 08:42 03/27/18 08:42 03/27/18 08:42 Intake & Output 03/26/18 03/27/18 03/28/18 06:59 06:59 06:59 Intake Total 2083 0 Output Total 950 375 Balance 1133 -375 Weight 79.6 kg General appearance: PRESENT: no acute distress, cooperative, hard of hearing Head exam: PRESENT: atraumatic, normocephalic Eye exam: PRESENT: EOMI. ABSENT: conjunctival injection, scleral icterus Ear exam: PRESENT: normal external ear exam Mouth exam: PRESENT: moist, tongue midline Respiratory exam: PRESENT: clear to auscultation micheal. ABSENT: rales, rhonchi, wheezes Cardiovascular exam: PRESENT: RRR. ABSENT: systolic murmur Pulses: PRESENT: normal radial pulses GI/Abdominal exam: PRESENT: hyperactive bowel sounds, soft, tenderness. ABSENT : distended, guarding, rebound Extremities exam: PRESENT: pedal edema Musculoskeletal exam: ABSENT: deformity Neurological exam: PRESENT: alert, awake, oriented to person, oriented to place , oriented to situation, CN II-XII grossly intact. ABSENT: aphasic Psychiatric exam: PRESENT: appropriate affect. ABSENT: anxious Skin exam: PRESENT: dry, intact, warm Results Laboratory Results: 03/26/18 15:07 03/26/18 15:07 03/26/18 03/26/18 03/26/18 15:07 15:07 15:07 WBC 12.4 H RBC 3.54 L Hgb 11.1 L Hct 33.7 L MCV 95 MCH 31.3 MCHC 33.0 RDW 13.7 Plt Count 264 Seg Neutrophils % 79.2 H Lymphocytes % 10.2 L Monocytes % 5.0 Eosinophils % 4.7 Basophils % 0.9 Absolute Neutrophils 9.8 H Absolute Lymphocytes 1.3 Absolute Monocytes 0.6 Absolute Eosinophils 0.6 Absolute Basophils 0.1 Sodium 140.5 Potassium 3.6 Chloride 105 Carbon Dioxide 27 Anion Gap 9 BUN 8 Creatinine 0.81 Est GFR ( Amer) > 60 Est GFR (Non-Af Amer) > 60 Glucose 98 Lactic Acid 0.7 Calcium 9.0 Total Bilirubin 0.3 AST 32 ALT 37 Alkaline Phosphatase 62 Total Protein 6.1 L Albumin 3.1 L Impressions: Abdomen/Pelvis CT 03/26/18 00:00 IMPRESSION: Descending colon diverticulitis without abscess, similar compared to 03/25/2018 CT abdomen pelvis. Assessment & Plan - Diagnosis (1) Acute diverticulitis of intestine Is this a current diagnosis for this admission?: Yes Plan: Patient is on Zosyn due to fluoroquinolone allergy. She is improving in terms of her pain. I will allow ice chips for now. Will order dietitian for education on diverticulosis diet. CT scan did not show perforation or abscess. (2) Early sepsis Is this a current diagnosis for this admission?: Yes Plan: Sepsis parameters resolved. Patient has normal blood pressure. Lactic acid is normal. Blood cultures are negative to date but still pending. Continue Zosyn. (3) Sleep apnea Is this a current diagnosis for this admission?: Yes Plan: Patient has been tested for and diagnosed with sleep apnea. She has been unable to use all masks and so does not have a CPAP machine. Her daughter tells me she has been measured as hypoxemic in the past especially with ambulation. Patient has required oxygen since admission and we will work on weaning her to off. We will also do an oxygen saturation eval prior to discharge just to make sure that she does not need oxygen for discharge home. She will go back to her primary care doctor to further discuss her sleep apnea and need for CPAP. (4) Hypotension, chronic Is this a current diagnosis for this admission?: Yes Plan: Patient has antihypertensives scheduled very sparingly as an outpatient. Today she is normotensive and we will monitor closely and start her medications back as indicated. (5) Hypothyroidism Is this a current diagnosis for this admission?: Yes Plan: We will continue home medication. (6) Seizure disorder Is this a current diagnosis for this admission?: Yes Plan: No evidence of seizures. Continue home medication. - Time Time Spent with patient: 25-34 minutes - Inpatient Certification Based on my medical assessment, after consideration of the patient's comorbidities, presenting symptoms, or acuity I expect that the services needed warrant INPATIENT care.: Yes I certify that my determination is in accordance with my understanding of Medicare's requirements for reasonable and necessary INPATIENT services [42 CFR 412.3e].: Yes Medical Necessity: Need Close Monitoring Due to Risk of Patient Decompensation, Need for IV Antibiotics - Plan Summary Plan Summary: We will continue IV antibiotics and transition to oral when patient is significantly improved. Will advance diet as her pain improves. Will follow oxygen level to see if oxygen as needed for discharge.
[2018-03-27] MEDS: SIMVASTATIN 40 MG TABLET PO SCH (22:26)
[2018-03-27] MEDS: GABAPENTIN 400 MG CAPSULE PO SCH (22:26)
[2018-03-27] MEDS: ASPIRIN 81 MG TABLET, ENT COATED PO SCH (22:26)
[2018-03-27] MEDS: ACETAMINOPHEN 325 MG TABLET PO PRN (22:27)
[2018-03-27] MEDS: CARBAMAZEPINE 100 MG TAB.SR.12H PO SCH (22:36)
[2018-03-28] MEDS: PIPERACILLIN SODIUM/TAZOBACTAM 4.5 GM in NORMAL SALINE 100 ML IV SCH ×4 (03:37→21:34)
[2018-03-28] MEDS: RINGERS SOLUTION,LACTATED 1,000 ML IV PRN (03:38)
[2018-03-28 05:09] LABS: HEMATOCRIT 31.4 % (36.0-47.0); HEMOGLOBIN 10.4 g/dL (12.0-15.5); MEAN CORPUSCULAR HEMOGLOBIN 32.1 pg (27.0-33.4); MEAN CORPUSCULAR HGB CONC 33.3 g/dL (32.0-36.0); MEAN CORPUSCULAR VOLUME 96 fl (80-97); PLATELET COUNT 280 10^3/uL (150-450); RED BLOOD COUNT 3.26 10^6/uL (3.72-5.28); RED CELL DISTRIBUTION WIDTH 13.9 % (11.5-14.0); WHITE BLOOD COUNT 8.9 10^3/uL (4.0-10.5)
[2018-03-28] MEDS: HEPARIN SOD (PORCINE) 5,000 UNIT/ML 1 ML SYRINGE SUBCUT SCH ×3 (05:27→21:34)
[2018-03-28] MEDS: CLONAZEPAM 1 MG TABLET PO SCH (05:27)
[2018-03-28 05:35] LABS: ANION GAP 10 (5-19); BLOOD UREA NITROGEN 8 mg/dL (7-20); CALCIUM 9.1 mg/dL (8.4-10.2); CARBON DIOXIDE 28 mmol/L (22-30); CHLORIDE 107 mmol/L (98-107); GLUCOSE 68 mg/dL (75-110); POTASSIUM 3.8 mmol/L (3.6-5.0); SODIUM 144.9 mmol/L (137-145)
[2018-03-28] MEDS: LEVOTHYROXINE SODIUM 0.075 MG TABLET PO SCH (10:49)
[2018-03-28] MEDS: LACTOBACILLUS ACIDOPHILUS 250 MG TAB PO SCH ×2 (10:49→18:07)
[2018-03-28] MEDS: ACETAMINOPHEN 325 MG TABLET PO PRN ×2 (12:12→18:07)
--- NOTE | 2018-03-28 17:59 | PDOC PROGRESS REPORT ---
Subjective Progress Note for:: 03/28/18 Subjective:: Patient is up in a bedside chair today. She feels significantly better. She has abdominal pain that is now really localizing to the lower abdomen, overall improved. She has moved her bowels. Nonbloody. She is feeling hungry. Chest pain or difficulty breathing. Oxygen has been titrated to off. Reason For Visit: ACUTE DIVERTICULITIS Physical Exam Vital Signs: Temp Pulse Resp BP Pulse Ox 98.6 F 82 18 123/66 94 03/28/18 15:38 03/28/18 15:38 03/28/18 11:28 03/28/18 15:38 03/28/18 15:38 Intake & Output 03/27/18 03/28/18 03/29/18 06:59 06:59 06:59 Intake Total 2083 3889 Output Total 950 1277 Balance 1133 2612 Weight 79.6 kg 78.7 kg General appearance: PRESENT: no acute distress, cooperative Head exam: PRESENT: atraumatic, normocephalic Eye exam: ABSENT: conjunctival injection, scleral icterus Mouth exam: PRESENT: moist Respiratory exam: PRESENT: clear to auscultation micheal, unlabored. ABSENT: rales , rhonchi, wheezes Cardiovascular exam: PRESENT: RRR Pulses: PRESENT: normal radial pulses GI/Abdominal exam: PRESENT: hyperactive bowel sounds, soft, tenderness. ABSENT : distended, firm, guarding Extremities exam: ABSENT: pedal edema Neurological exam: PRESENT: alert, awake, oriented to person, oriented to place , oriented to situation, CN II-XII grossly intact Psychiatric exam: PRESENT: appropriate affect. ABSENT: anxious Skin exam: PRESENT: dry, intact, warm Results Laboratory Results: 03/28/18 04:05 03/28/18 04:05 03/28/18 03/28/18 04:05 04:05 WBC 8.9 RBC 3.26 L Hgb 10.4 L Hct 31.4 L MCV 96 MCH 32.1 MCHC 33.3 RDW 13.9 Plt Count 280 Sodium 144.9 Potassium 3.8 Chloride 107 Carbon Dioxide 28 Anion Gap 10 BUN 8 Creatinine 0.83 Est GFR ( Amer) > 60 Est GFR (Non-Af Amer) > 60 Glucose 68 L Calcium 9.1 Impressions: Abdomen/Pelvis CT 03/26/18 00:00 IMPRESSION: Descending colon diverticulitis without abscess, similar compared to 03/25/2018 CT abdomen pelvis. Assessment & Plan - Diagnosis (1) Acute diverticulitis of intestine Is this a current diagnosis for this admission?: Yes Plan: Medically improving with Zofran, has a fluoroquinolone allergy so we will continue IV Zosyn. As pain is improved and she is taking ice chips without difficulty we will advance her diet to clears. (2) Early sepsis Is this a current diagnosis for this admission?: Yes Plan: Sepsis parameters resolved. (3) Sleep apnea Is this a current diagnosis for this admission?: Yes Plan: We will continue to work on this problem with her outpatient physician. Were able to wean her off of oxygen during the day. (4) Hypotension, chronic Is this a current diagnosis for this admission?: Yes Plan: Interestingly her blood pressure is normal today. We will continue to monitor. (5) Hypothyroidism Is this a current diagnosis for this admission?: Yes Plan: Continue current medications. (6) Seizure disorder Is this a current diagnosis for this admission?: Yes Plan: Stable, continue her home seizure meds - Time Time Spent with patient: 25-34 minutes Medications reviewed and adjusted accordingly: Yes - Inpatient Certification Based on my medical assessment, after consideration of the patient's comorbidities, presenting symptoms, or acuity I expect that the services needed warrant INPATIENT care.: Yes I certify that my determination is in accordance with my understanding of Medicare's requirements for reasonable and necessary INPATIENT services [42 CFR 412.3e].: Yes Medical Necessity: Need for IV Antibiotics
[2018-03-28] MEDS: CARBAMAZEPINE 100 MG TAB.SR.12H PO SCH (21:35)
[2018-03-28] MEDS: ASPIRIN 81 MG TABLET, ENT COATED PO SCH (21:35)
[2018-03-28] MEDS: SIMVASTATIN 40 MG TABLET PO SCH (21:36)
[2018-03-28] MEDS: GABAPENTIN 400 MG CAPSULE PO SCH (21:36)
[2018-03-29] MEDS: PIPERACILLIN SODIUM/TAZOBACTAM 4.5 GM in NORMAL SALINE 100 ML IV SCH ×4 (03:44→21:54)
[2018-03-29] MEDS: CLONAZEPAM 1 MG TABLET PO SCH (06:37)
[2018-03-29] MEDS: HEPARIN SOD (PORCINE) 5,000 UNIT/ML 1 ML SYRINGE SUBCUT SCH ×3 (06:37→21:54)
[2018-03-29] MEDS: LEVOTHYROXINE SODIUM 0.075 MG TABLET PO SCH (10:27)
[2018-03-29] MEDS: LACTOBACILLUS ACIDOPHILUS 250 MG TAB PO SCH ×2 (10:27→17:07)
[2018-03-29] MEDS: ACETAMINOPHEN 325 MG TABLET PO PRN (10:47)
--- NOTE | 2018-03-29 15:21 | PDOC PROGRESS REPORT ---
Subjective Progress Note for:: 03/29/18 Subjective:: Is feeling better today. Abdominal pain is almost gone. She started clear liquids yesterday and was having significant diarrhea. She would like to try toast and bland food. No chest pain or difficulty breathing. No fevers or chills. No bloody stools. She woke up with a headache the last 2 days. I suggested that we put oxygen on her at night and she agrees. Reason For Visit: ACUTE DIVERTICULITIS Physical Exam Vital Signs: Temp Pulse Resp BP Pulse Ox 99.2 F 82 18 121/70 98 03/29/18 11:08 03/29/18 11:08 03/29/18 11:08 03/29/18 11:08 03/29/18 11:08 Intake & Output 03/28/18 03/29/18 03/30/18 06:59 06:59 06:59 Intake Total 3889 2085 Output Total 1277 1050 Balance 2612 1035 Weight 78.7 kg 79.7 kg General appearance: PRESENT: no acute distress, cooperative, obese Head exam: PRESENT: atraumatic, normocephalic Eye exam: ABSENT: conjunctival injection, scleral icterus Ear exam: PRESENT: normal external ear exam Mouth exam: PRESENT: moist, tongue midline Respiratory exam: PRESENT: decreased breath sounds, unlabored. ABSENT: rales, rhonchi, wheezes Cardiovascular exam: PRESENT: RRR GI/Abdominal exam: PRESENT: normal bowel sounds, soft. ABSENT: distended, guarding, tenderness Extremities exam: ABSENT: pedal edema Neurological exam: PRESENT: alert, awake, oriented to person, oriented to place , oriented to situation Psychiatric exam: PRESENT: appropriate affect. ABSENT: anxious Skin exam: PRESENT: dry, intact, warm Results Laboratory Results: 03/28/18 04:05 03/28/18 04:05 Impressions: Abdomen/Pelvis CT 03/26/18 00:00 IMPRESSION: Descending colon diverticulitis without abscess, similar compared to 03/25/2018 CT abdomen pelvis. Assessment & Plan - Diagnosis (1) Acute diverticulitis of intestine Is this a current diagnosis for this admission?: Yes Plan: We will continue with Zosyn as she has a fluoroquinolone allergy. Will advance to bland diet today. Will monitor pain and infection parameters. Overall she is improving. (2) Early sepsis Is this a current diagnosis for this admission?: Yes Plan: Early sepsis was due to diverticulitis. Sepsis parameters are now resolved. (3) Sleep apnea Is this a current diagnosis for this admission?: Yes Plan: Patient is waking up with a headache and is excessively somnolent during the day. She has been diagnosed with sleep apnea as an outpatient but cannot tolerate the masks. We will place oxygen at night. (4) Hypotension, chronic Is this a current diagnosis for this admission?: Yes Plan: Patient has been normotensive for the past few days. I do not know if she has chronic hypotension. We will continue to monitor. (5) Hypothyroidism Is this a current diagnosis for this admission?: Yes Plan: Asymptomatic from this perspective. Continue current medications. (6) Seizure disorder Is this a current diagnosis for this admission?: Yes Plan: No active seizures. Continue her antiseizure medication. - Time Time Spent with patient: 25-34 minutes Medications reviewed and adjusted accordingly: Yes - Inpatient Certification Based on my medical assessment, after consideration of the patient's comorbidities, presenting symptoms, or acuity I expect that the services needed warrant INPATIENT care.: Yes I certify that my determination is in accordance with my understanding of Medicare's requirements for reasonable and necessary INPATIENT services [42 CFR 412.3e].: Yes Medical Necessity: Need for IV Antibiotics
[2018-03-29] MEDS ORDERED: DEXTROSE 50%-WATER 25 GM/50 ML DISP.SYRIN IV PRN ×2 (16:56)
[2018-03-29] MEDS ORDERED: GLUCAGON,HUMAN RECOMB 1 MG INJ SUBCUT PRN (16:56)
[2018-03-29] MEDS ORDERED: DEXTROSE 40% GEL 15 GM TUBE PO PRN ×2 (16:56)
[2018-03-29] MEDS: ASPIRIN 81 MG TABLET, ENT COATED PO SCH (21:55)
[2018-03-29] MEDS: CARBAMAZEPINE 100 MG TAB.SR.12H PO SCH (21:55)
[2018-03-29] MEDS: SIMVASTATIN 40 MG TABLET PO SCH (21:56)
[2018-03-29] MEDS: GABAPENTIN 400 MG CAPSULE PO SCH (21:56)
[2018-03-30] MEDS: PIPERACILLIN SODIUM/TAZOBACTAM 4.5 GM in NORMAL SALINE 100 ML IV SCH ×4 (03:06→21:46)
[2018-03-30] MEDS: HEPARIN SOD (PORCINE) 5,000 UNIT/ML 1 ML SYRINGE SUBCUT SCH ×3 (05:23→21:46)
[2018-03-30] MEDS: CLONAZEPAM 1 MG TABLET PO SCH (05:23)
[2018-03-30] MEDS: LACTOBACILLUS ACIDOPHILUS 250 MG TAB PO SCH ×2 (10:18→18:19)
[2018-03-30] MEDS: LEVOTHYROXINE SODIUM 0.075 MG TABLET PO SCH (10:18)
[2018-03-30] MEDS: IPRATROPIUM/ALBUTEROL 0.5-2.5 MG/3 ML AMPUL NEB PRN (10:59)
--- NOTE | 2018-03-30 15:55 | PDOC PROGRESS REPORT ---
Subjective Progress Note for:: 03/30/18 Subjective:: She was feeling sleepy today. She was wheezy. Her sats were checked and she was 85% on room air. We have placed oxygen. She is received a DuoNeb. In general she feels well now. Her diarrhea has receded for now. She is requesting a jean lux. Her abdominal pain is much improved. No fevers or chills. No chest pain. No bleeding. Reason For Visit: ACUTE DIVERTICULITIS Physical Exam Vital Signs: Temp Pulse Resp BP Pulse Ox 98.2 F 92 20 126/71 H 93 03/30/18 07:17 03/30/18 07:17 03/30/18 07:17 03/30/18 07:17 03/30/18 07:17 Intake & Output 03/29/18 03/30/18 03/31/18 06:59 06:59 06:59 Intake Total 2085 1345 Output Total 1050 475 Balance 1035 870 Weight 79.7 kg 78.6 kg General appearance: PRESENT: no acute distress, obese Head exam: PRESENT: atraumatic, normocephalic Eye exam: ABSENT: conjunctival injection, scleral icterus Ear exam: PRESENT: normal external ear exam Respiratory exam: PRESENT: decreased breath sounds, unlabored, wheezes. ABSENT : rales, rhonchi Cardiovascular exam: PRESENT: RRR. ABSENT: systolic murmur GI/Abdominal exam: PRESENT: normal bowel sounds, soft. ABSENT: distended, guarding, tenderness Neurological exam: PRESENT: alert, awake, oriented to person, oriented to place , oriented to situation, CN II-XII grossly intact Psychiatric exam: PRESENT: appropriate affect. ABSENT: anxious Skin exam: PRESENT: dry, warm Results Laboratory Results: 03/28/18 04:05 03/28/18 04:05 Impressions: Abdomen/Pelvis CT 03/26/18 00:00 IMPRESSION: Descending colon diverticulitis without abscess, similar compared to 03/25/2018 CT abdomen pelvis. Assessment & Plan - Diagnosis (1) Hypoxemia Is this a current diagnosis for this admission?: Yes Plan: Patient was 85% on room air. Oxygen has been placed. We will need to discharge her with home O2. The patient probably has hypoxemia in the home that has been undiagnosed. She definitely has diagnosed sleep apnea but she has not been able to tolerate her CPAP machines her JAYLENE is not treated. Is probably contributing to daytime somnolence. (2) Acute diverticulitis of intestine Is this a current diagnosis for this admission?: Yes Plan: Improving. Continue Zosyn for 7-10 days, today I believe is day 6. Will try jean lux today. (3) Sleep apnea Is this a current diagnosis for this admission?: Yes Plan: Please see hypoxemia above. (4) Hypotension, chronic Is this a current diagnosis for this admission?: Yes Plan: Has been normotensive. Will continue to follow. (5) Hypothyroidism Is this a current diagnosis for this admission?: Yes Plan: Patient is on thyroid repletion. Secondary to excessive sleepiness will check TSH and free T4 to assure that she is appropriately repleted. (6) Seizure disorder Is this a current diagnosis for this admission?: Yes Plan: No seizures while admitted, continue her home med. - Time Time Spent with patient: 25-34 minutes Medications reviewed and adjusted accordingly: Yes - Inpatient Certification Based on my medical assessment, after consideration of the patient's comorbidities, presenting symptoms, or acuity I expect that the services needed warrant INPATIENT care.: Yes I certify that my determination is in accordance with my understanding of Medicare's requirements for reasonable and necessary INPATIENT services [42 CFR 412.3e].: Yes Medical Necessity: Need for IV Antibiotics, Risk of Complication if Not Cared For in Hospital
[2018-03-30 21:45] LABS: FREE T3 2.91 pg/mL (2.77-5.27); FREE T4 (FREE THYROXINE) 1.48 ng/dL (0.78-2.19)
[2018-03-30] MEDS: ASPIRIN 81 MG TABLET, ENT COATED PO SCH (21:46)
[2018-03-30] MEDS: SIMVASTATIN 40 MG TABLET PO SCH (21:46)
[2018-03-30] MEDS: GABAPENTIN 400 MG CAPSULE PO SCH (21:46)
[2018-03-30 21:59] LABS: THYROID STIMULATING HORMONE 2.38 uIU/mL (0.47-4.68)
[2018-03-30] MEDS: CARBAMAZEPINE 100 MG TAB.SR.12H PO SCH (22:12)
[2018-03-31] MEDS: PIPERACILLIN SODIUM/TAZOBACTAM 4.5 GM in NORMAL SALINE 100 ML IV SCH ×4 (05:28→22:01)
[2018-03-31] MEDS: HEPARIN SOD (PORCINE) 5,000 UNIT/ML 1 ML SYRINGE SUBCUT SCH ×3 (05:28→22:05)
[2018-03-31] MEDS: CLONAZEPAM 1 MG TABLET PO SCH (05:33)
[2018-03-31] MEDS: IPRATROPIUM/ALBUTEROL 0.5-2.5 MG/3 ML AMPUL NEB PRN (09:19)
[2018-03-31] MEDS: LEVOTHYROXINE SODIUM 0.075 MG TABLET PO SCH (09:32)
[2018-03-31] MEDS: LACTOBACILLUS ACIDOPHILUS 250 MG TAB PO SCH ×2 (09:32→17:34)
--- NOTE | 2018-03-31 12:54 | RADIOLOGY REPORT (SQ) ---
EXAM DESCRIPTION: MRI HEAD COMBO COMPLETED DATE/TIME: 03/31/2018 12:27 pm REASON FOR STUDY: AMS, hx of triple negative breast cancer COMPARISON: 06/01/2015. TECHNIQUE: Multiplanar imaging includes noncontrasted T1, T2, FLAIR, diffusion with ADC map and post gadolinium contrast T1 sequences. Images stored on PACS. CONTRAST TYPE AND DOSE: 15 mL Multihance. RENAL FUNCTION: GFR > 60. LIMITATIONS: None. FINDINGS: ANATOMY: No anomalies. Normal vascular flow voids. Pituitary fossa normal. CSF SPACES: Normal in size and contour. No hemorrhage. CEREBRUM: Sulci and gyri normal in size and contour. Normal white matter signal on FLAIR imaging. No evidence of hemorrhage, mass, or extraaxial fluid collection. No abnormal enhancement post contrast. POSTERIOR FOSSA: No signal alteration. No hemorrhage. No edema, masses, or mass effect. Internal mirna tory canals, cerebellopontine angles, mastoids normal. No enhancing lesions. No abnormal enhancement post contrast. DIFFUSION IMAGING: Negative for acute or subacute infarction. ORBITS: No masses. Globes normal. PARANASAL SINUSES: No fluid levels. Mucosa normal. OTHER: No other significant finding. IMPRESSION: NORMAL MRI OF THE BRAIN WITHOUT AND WITH INTRAVENOUS GADOLINIUM CONTRAST. EVIDENCE OF ACUTE STROKE: NO. TECHNICAL DOCUMENTATION: JOB ID: [id number] [employer]- All Rights Reserved Reading location - IP/workstation name: [email or web address]
--- NOTE | 2018-03-31 13:13 | PDOC PROGRESS REPORT ---
Subjective Progress Note for:: 03/31/18 Subjective:: Seen at bedside with 2 daughters. Continues to have diarrhea with an oral intake. Has mild nausea and lower abdominal pain. Denies fevers, chills, CP. Was noted to be hypoxic on RA yesterday and now on supplemental O2 with improved sats. Still unclear why she has bouts of feeling cold and confusion. History notable for triple negative breast cancer. Reason For Visit: ACUTE DIVERTICULITIS Physical Exam Vital Signs: Temp Pulse Resp BP Pulse Ox 98.2 F 79 16 118/57 L 93 03/31/18 07:13 03/31/18 09:23 03/31/18 09:23 03/31/18 07:13 03/31/18 09:23 Intake & Output 03/30/18 03/31/18 04/01/18 06:59 06:59 06:59 Intake Total 1345 475 Output Total 475 650 Balance 870 -175 Weight 78.6 kg 80.4 kg General appearance: PRESENT: no acute distress, well-developed, well-nourished Mouth exam: PRESENT: moist Respiratory exam: PRESENT: unlabored. ABSENT: tachypnea Cardiovascular exam: PRESENT: +S1, +S2. ABSENT: tachycardia GI/Abdominal exam: PRESENT: normal bowel sounds, tenderness - LLQ tender to palpation. ABSENT: firm, guarding Neurological exam: PRESENT: alert, awake, oriented to person, oriented to place , oriented to time, CN II-XII grossly intact Psychiatric exam: PRESENT: appropriate affect Results Laboratory Results: 03/28/18 04:05 03/28/18 04:05 03/30/18 03/30/18 20:35 22:20 TSH 2.38 Free T4 1.48 Free T3 pg/mL 2.91 Stool Occult Blood NEGATIVE Impressions: Abdomen/Pelvis CT 03/26/18 00:00 IMPRESSION: Descending colon diverticulitis without abscess, similar compared to 03/25/2018 CT abdomen pelvis. Assessment & Plan - Diagnosis (1) Confusion Is this a current diagnosis for this admission?: Yes Plan: This appears to be an acute/subacute process. Presents with "cold" spells and then develops to confusion. Intermittent in nature and resolves without intervention. Could be related to hypoxemia which was noted on 03/30 during day time however symptoms persist with supplemental O2. Metabolic etiology also possible. Thyroid studies WNL. Of note, pt has history of TNBC. She has not had brain scans in "a long time". - MRI head ordered on 03/31: no evidence of CVA, brain mets, or other intra- cranial pathology to explain symmptoms (2) Breast cancer Qualifiers: Estrogen receptor status: negative Is this a current diagnosis for this admission?: No Plan: History of Triple Negative Breast Cancer, followed by [facility] in [place], [place] (3) Acute diverticulitis of intestine Is this a current diagnosis for this admission?: Yes Plan: Clinically improving. Has been on Zosyn since 03/26. Complete 7 day course. OK to transition to PO when tolerating orals (4) Hypoxemia Is this a current diagnosis for this admission?: Yes Plan: Per 03/30: noted to be 85% on room air. Started on supplemental Oxygen. The patient probably has hypoxemia in the home that has been undiagnosed. - Known history of JAYLENE however not able to tolerate CPAP machines. Is probably contributing to daytime somnolence - Should have 6 minute walk test prior to discharge to determine home O2 needs (5) Diarrhea Qualifiers: Diarrhea type: unspecified type Qualified Code(s): R19.7 - Diarrhea, unspecified Is this a current diagnosis for this admission?: Yes Plan: Unclear etiology. occurring with oral intake. Zosyn can cause diarrhea however time course does not fit. CTM. - Time Time Spent with patient: 15-24 minutes Anticipated discharge: Home with Homehealth, SNF Within: within 24 hours, within 48 hours
[2018-03-31] MEDS: SIMVASTATIN 40 MG TABLET PO SCH (22:04)
[2018-03-31] MEDS: ASPIRIN 81 MG TABLET, ENT COATED PO SCH (22:05)
[2018-03-31] MEDS: GABAPENTIN 400 MG CAPSULE PO SCH (22:05)
[2018-03-31] MEDS: CARBAMAZEPINE 100 MG TAB.SR.12H PO SCH (22:06)
[2018-04-01] MEDS: PIPERACILLIN SODIUM/TAZOBACTAM 4.5 GM in NORMAL SALINE 100 ML IV SCH ×4 (03:45→20:48)
[2018-04-01] MEDS: CLONAZEPAM 1 MG TABLET PO SCH (05:49)
[2018-04-01] MEDS: HEPARIN SOD (PORCINE) 5,000 UNIT/ML 1 ML SYRINGE SUBCUT SCH ×3 (05:50→22:14)
[2018-04-01] MEDS: ACETAMINOPHEN 325 MG TABLET PO PRN (07:49)
[2018-04-01] MEDS: LACTOBACILLUS ACIDOPHILUS 250 MG TAB PO SCH ×2 (09:33→18:37)
[2018-04-01] MEDS: LEVOTHYROXINE SODIUM 0.075 MG TABLET PO SCH (09:33)
--- NOTE | 2018-04-01 11:45 | PDOC PROGRESS REPORT ---
Subjective Progress Note for:: 04/01/18 Subjective:: Still having continuous streaming liquid diarrhea. Abdominal pain is subsiding. Reason For Visit: ACUTE DIVERTICULITIS Physical Exam Vital Signs: Temp Pulse Resp BP Pulse Ox 98.1 F 86 18 134/75 H 96 04/01/18 08:26 04/01/18 08:26 04/01/18 08:26 04/01/18 08:26 04/01/18 08:26 Intake & Output 03/31/18 04/01/18 04/02/18 05:59 05:59 05:59 Intake Total 375 800 360 Output Total 650 615 Balance -275 185 360 Weight 177 lb 4.026 oz 173 lb 11.588 oz General appearance: PRESENT: no acute distress Respiratory exam: PRESENT: clear to auscultation micheal Cardiovascular exam: PRESENT: RRR GI/Abdominal exam: PRESENT: soft, tenderness - Along the left margin Extremities exam: PRESENT: other - No edema Neurological exam: PRESENT: alert Psychiatric exam: PRESENT: appropriate affect Skin exam: PRESENT: warm Results Laboratory Results: 03/28/18 04:05 03/28/18 04:05 03/26/18 15:07 Blood Blood Culture - Final NO GROWTH IN 5 DAYS Impressions: Abdomen/Pelvis CT 03/26/18 00:00 IMPRESSION: Descending colon diverticulitis without abscess, similar compared to 03/25/2018 CT abdomen pelvis. Head MRI 03/31/18 00:00 IMPRESSION: NORMAL MRI OF THE BRAIN WITHOUT AND WITH INTRAVENOUS GADOLINIUM CONTRAST. EVIDENCE OF ACUTE STROKE: NO. Assessment & Plan - Diagnosis (1) Acute diverticulitis of intestine Is this a current diagnosis for this admission?: Yes Plan: Pain is greatly improved. Diarrhea persists. Continue current antibiotics and add Imodium for symptomatic management. (2) Bipolar depression Is this a current diagnosis for this admission?: Yes Plan: Continue home medications (3) Diarrhea Qualifiers: Diarrhea type: unspecified type Qualified Code(s): R19.7 - Diarrhea, unspecified Is this a current diagnosis for this admission?: Yes
[2018-04-01] MEDS ORDERED: LOPERAMIDE HCL 2 MG CAPSULE PO ONE ×2 (12:00→13:15)
[2018-04-01] MEDS ORDERED: HYDROCORTISONE 1% CREAM 28.35 GM TP PRN (12:42)
[2018-04-01] MEDS: SIMVASTATIN 40 MG TABLET PO SCH (22:13)
[2018-04-01] MEDS: GABAPENTIN 400 MG CAPSULE PO SCH (22:13)
[2018-04-01] MEDS: CARBAMAZEPINE 100 MG TAB.SR.12H PO SCH (22:13)
[2018-04-01] MEDS: ASPIRIN 81 MG TABLET, ENT COATED PO SCH (22:13)
[2018-04-02] MEDS: PIPERACILLIN SODIUM/TAZOBACTAM 4.5 GM in NORMAL SALINE 100 ML IV SCH ×3 (02:17→14:37)
[2018-04-02] MEDS: HEPARIN SOD (PORCINE) 5,000 UNIT/ML 1 ML SYRINGE SUBCUT SCH ×3 (05:53→22:36)
[2018-04-02] MEDS: CLONAZEPAM 1 MG TABLET PO SCH (05:53)
[2018-04-02 06:49] LABS: ALANINE AMINOTRANSFERASE 30 U/L (9-52); ALBUMIN 2.6 g/dL (3.5-5.0); ALKALINE PHOSPHATASE 52 U/L (38-126); ANION GAP 7 (5-19); ASPARTATE AMINO TRANSFERASE 20 U/L (14-36); BILIRUBIN,DIRECT 0.1 mg/dL (0.0-0.4); BILIRUBIN,TOTAL 0.1 mg/dL (0.2-1.3); BLOOD UREA NITROGEN 4 mg/dL (7-20); CALCIUM 8.9 mg/dL (8.4-10.2); CARBON DIOXIDE 34 mmol/L (22-30); CHLORIDE 107 mmol/L (98-107); GLUCOSE 79 mg/dL (75-110); PHOSPHORUS 2.9 mg/dL (2.5-4.5); SODIUM 148.4 mmol/L (137-145); TOTAL PROTEIN 5.1 g/dL (6.3-8.2)
[2018-04-02 06:56] LABS: POTASSIUM 2.8 mmol/L (3.6-5.0)
[2018-04-02 06:57] LABS: ABSOLUTE BASOPHILS # (AUTO) 0.1 10^3/uL (0.0-0.2); ABSOLUTE EOSINOPHILS # (AUTO) 1.2 10^3/uL (0.0-0.6); ABSOLUTE LYMPHOCYTES (AUTO) 1.7 10^3/uL (0.5-4.7); ABSOLUTE MONOCYTES (AUTO) 0.6 10^3/uL (0.1-1.4); ABSOLUTE NEUT (AUTO) 5.1 10^3/uL (1.7-8.2); BASOPHILS % (AUTO) 1.1 % (0-2); HEMATOCRIT 30.1 % (36.0-47.0); HEMOGLOBIN 10.2 g/dL (12.0-15.5); LYMPHOCYTES % (AUTO) 19.5 % (13-45); MEAN CORPUSCULAR HEMOGLOBIN 32.2 pg (27.0-33.4); MEAN CORPUSCULAR HGB CONC 33.7 g/dL (32.0-36.0); MEAN CORPUSCULAR VOLUME 96 fl (80-97); MONOCYTES % (AUTO) 7.3 % (3-13); PLATELET COUNT 346 10^3/uL (150-450); RED BLOOD COUNT 3.15 10^6/uL (3.72-5.28); RED CELL DISTRIBUTION WIDTH 13.8 % (11.5-14.0); SEGMENTED NEUTROPHILS % (AUTO) 58.1 % (42-78); TOTAL CELLS COUNTED % (AUTO) 100 %; WHITE BLOOD COUNT 8.8 10^3/uL (4.0-10.5)
[2018-04-02] MEDS ORDERED: LOPERAMIDE HCL 2 MG CAPSULE PO PRN (08:01)
[2018-04-02] MEDS ORDERED: LOPERAMIDE HCL 2 MG CAPSULE PO ONE (09:00)
[2018-04-02] MEDS: LEVOTHYROXINE SODIUM 0.075 MG TABLET PO SCH (09:14)
[2018-04-02] MEDS: POTASSIUM CHLORIDE 10 MEQ TABLET.SA PO SCH ×3 (09:15→16:12)
[2018-04-02] MEDS: LACTOBACILLUS ACIDOPHILUS 250 MG TAB PO SCH ×2 (09:15→18:33)
--- NOTE | 2018-04-02 14:02 | PDOC CONSULTATION ---
Consultation Consult Date: 04/02/18 Attending physician:: LEONIDAS HENAO Consult reason:: Diarrhea, abdominal pain and diverticulitis History of Present Illness Admission Date/PCP: 03/26/18 14:47 USHA MADRIGAL MD History of Present Illness: ERIC PRETTY is a 77 year old female Asked to see this patient by Hospitalist was admitted as an admission following ongoing complaints of LLQ pain had CT scan on 03/25 and was noted to have diverticulitis, she has several antibiotic allergies, and was only started on Keflex as outpatient since coverage is needed for both gram negative organisms, she presented for inpatient admission repeat CT scan show similar inflammation in the descending colon . pain is better but still has diarrhea please check for C. Diff , likely has antibiotic related diarrhea since not a candidate for colonoscopy for now, there is no wary of knowing if it could be due to another form of colitis most likely in this patient would be ischemic colitis since a good portion of the descending colon on both CT scans that may be why the issue of diarrhea is ongoing and could explain why there is no appreciable change in the CT scan findings would make sure she is covered for both gram negative and anaerobic organisms. Past Medical History Cardiac Medical History: Reports: Coronary Artery Disease, Hyperlipidema, Hypertension, Other - Hypotension Denies: Myocardial Infarction Pulmonary Medical History: Reports: Bronchitis, Pneumonia, Sleep Apnea Denies: Asthma, Chronic Obstructive Pulmonary Disease (COPD), Tuberculosis Neurological Medical History: Reports: Seizures, Other - Trigeminal neuralgia Endocrine Medical History: Reports: Hypothyroidism Malignancy Medical History: Reports: Breast Cancer - S/P LUMPECTOMY, CHEMO Tx, RAD. Tx GI Medical History: Reports: Gastroesophageal Reflux Disease Denies: Hepatitis, Hiatal Hernia - HAD UNIQUE Musculoskeltal Medical History: Reports: Arthritis Psychiatric Medical History: Reports: Bipolar Disorder, Depression Hematology: Reports: Anemia Denies: Sickle Cell Disease Past Surgical History Past Surgical History: Reports: Appendectomy, Cholecystectomy, Hysterectomy, Tonsillectomy, Other - Niesen fundoplication Denies: Amputation, Mastectomy, Pacemaker Social History Lives with: Family Smoking Status: Former Smoker Number of Years Smokin Last Time Smoked: 30 yrs ago Frequency of Alcohol Use: None Hx Recreational Drug Use: No Drugs: None Hx Prescription Drug Abuse: No - Advance Directive Resuscitation Status: Full Code Family History Family History: CAD, Hypertension, Malignancy - Skin, leukemia, CKD Parental Family History Reviewed: Yes Children Family History Reviewed: Unknown Sibling(s) Family History Reviewed.: Unknown Medication/Allergy Home Medications: Amoxicillin/Potassium Clav [Augmentin Xr 1,000-62.5 Tab] 2 tab PO BID 03/26/18 Ascorbic Acid [Vitamin C 500 mg Tablet] 500 mg PO DAILY 03/26/18 Aspirin [Aspirin EC] 81 mg PO QHS 03/26/18 Biotin 5,000 mcg PO DAILY 03/26/18 Calcium Citrate/Vitamin D3 [Calcium Citrate - Vit D3 Tab] 1 each PO DAILY Carbamazepine [Carbamazepine ER] 100 mg PO DAILY 03/26/18 Cholecalciferol (Vitamin D3) [Vitamin D3 1000 Unit Tablet] 1,000 unit PO DAILY 03/26/18 Clonazepam [Klonopin 1 mg Tablet] 1 mg PO DAILY 03/26/18 Cyanocobalamin (Vitamin B-12) [Vitamin B12] 1,000 mcg PO DAILY 03/26/18 Ferrous Sulfate [Iron] 65 mg PO DAILY 03/26/18 Furosemide [Lasix 20 mg Tablet] 20 mg PO BID 03/26/18 Gabapentin [Neurontin] 1,200 mg PO QHS 03/26/18 Levothyroxine Sodium [Synthroid] 75 mcg PO DAILY 03/26/18 Lisinopril [Prinivil 10 mg Tablet] 10 mg PO DAILY 03/26/18 Metoclopramide HCl [Reglan 10 mg Tablet] 10 mg PO ASDIR PRN 03/26/18 Metoprolol Succinate [Toprol Xl 50 mg Tab.sr] 50 mg PO Q3D 03/26/18 Multivit-Min/Iron/Folic/Lutein [Centrum Silver Women Tablet] 1 each PO DAILY Ondansetron [Zofran Odt] 8 mg PO Q6HP PRN 03/26/18 Potassium Chloride [K-Tab ER] 20 meq PO DAILY 03/26/18 Simvastatin [Zocor 40 mg Tablet] 40 mg PO QHS 03/26/18 Allergies/Adverse Reactions: ciprofloxacin [Ciprofloxacin] Allergy (Severe, Verified 03/26/18 14:11) levofloxacin [From Levaquin] Allergy (Severe, Verified 03/26/18 14:11) codeine [Codeine] Allergy (Verified 03/26/18 14:11) Sulfa (Sulfonamide Antibiotics) Allergy (Verified 03/26/18 14:11) Review of Systems Constitutional: ABSENT: fever(s), headache(s), night sweats, weakness Eyes: ABSENT: visual disturbances Ears: ABSENT: hearing changes Cardiovascular: ABSENT: edema, orthropnea Gastrointestinal: ABSENT: hematemesis, melena Genitourinary: ABSENT: dysuria, hematuria Musculoskeletal: ABSENT: joint swelling Integumentary: ABSENT: pruritus Neurological: ABSENT: syncope, tingling, tremor(s), vertigo Endocrine: ABSENT: polydipsia, polyphagia, polyuria Hematologic/Lymphatic: ABSENT: easy bruising Physical Exam Vital Signs: Temp Pulse Resp BP Pulse Ox 98.6 F 81 16 110/73 96 04/02/18 11:35 04/02/18 11:35 04/02/18 11:35 04/02/18 11:35 04/02/18 11:35 Intake & Output 04/01/18 04/02/18 04/03/18 06:59 06:59 06:59 Intake Total 960 865 Output Total 615 200 Balance 345 665 Weight 78.8 kg 81.2 kg General appearance: PRESENT: no acute distress, well-developed, well-nourished Head exam: PRESENT: atraumatic, normocephalic Eye exam: PRESENT: EOMI, PERRLA. ABSENT: nystagmus, periorbital swelling, scleral icterus Mouth exam: PRESENT: moist, neck supple Throat exam: ABSENT: tonsillar exudate, tonsillogmegaly Neck exam: ABSENT: meningismus, tenderness, thyromegaly Respiratory exam: PRESENT: symmetrical, unlabored. ABSENT: tachypnea, wheezes Cardiovascular exam: PRESENT: RRR, +S1, +S2 GI/Abdominal exam: PRESENT: soft, tenderness. ABSENT: rebound, rigid Extremities exam: ABSENT: joint swelling Neurological exam: PRESENT: oriented to time, oriented to situation, CN II-XII grossly intact Focused psych exam: ABSENT: restlessness Skin exam: PRESENT: normal color. ABSENT: mottled, pallor, petechiae, urticaria Results Laboratory Results: 04/02/18 05:54 04/02/18 05:54 04/02/18 04/02/18 05:54 05:54 WBC 8.8 RBC 3.15 L Hgb 10.2 L Hct 30.1 L MCV 96 MCH 32.2 MCHC 33.7 RDW 13.8 Plt Count 346 Seg Neutrophils % 58.1 Lymphocytes % 19.5 Monocytes % 7.3 Eosinophils % 14.0 H Basophils % 1.1 Absolute Neutrophils 5.1 Absolute Lymphocytes 1.7 Absolute Monocytes 0.6 Absolute Eosinophils 1.2 H Absolute Basophils 0.1 Sodium 148.4 H Potassium 2.8 L* Chloride 107 Carbon Dioxide 34 H Anion Gap 7 BUN 4 L Creatinine 0.79 Est GFR ( Amer) > 60 Est GFR (Non-Af Amer) > 60 Glucose 79 Calcium 8.9 Phosphorus 2.9 Magnesium 1.5 L Total Bilirubin 0.1 L AST 20 ALT 30 Alkaline Phosphatase 52 Total Protein 5.1 L Albumin 2.6 L 04/02/18 06:25 NT-Pro-B Natriuret Pep 501 H Impressions: Abdomen/Pelvis CT 03/26/18 00:00 IMPRESSION: Descending colon diverticulitis without abscess, similar compared to 03/25/2018 CT abdomen pelvis. Head MRI 03/31/18 00:00 IMPRESSION: NORMAL MRI OF THE BRAIN WITHOUT AND WITH INTRAVENOUS GADOLINIUM CONTRAST. EVIDENCE OF ACUTE STROKE: NO. Assessment & Plan - Diagnosis (1) Diarrhea Qualifiers: Diarrhea type: unspecified type Qualified Code(s): R19.7 - Diarrhea, unspecified Is this a current diagnosis for this admission?: Yes Plan: antibiotic associated diarrhea check for C.Diff may be due to ischemic colitis patient currently not a candidate for colonoscopy since has acute diverticulitis outpatient evaluation for that (2) Abnormal CT scan Plan: [address] scans show similar findings, should have at least improved some given the first CT scan done on 03/25 differential to include possible ischemic bowel , since has CAD cover her for gram negative and anaerobic organisms, - Time Time Spent: 50 to 70 Minutes
--- NOTE | 2018-04-02 14:40 | PDOC PROGRESS REPORT ---
Subjective Progress Note for:: 04/02/18 Subjective:: Still having diarrhea. Essentially unchanged. Reason For Visit: ACUTE DIVERTICULITIS Physical Exam Vital Signs: Temp Pulse Resp BP Pulse Ox 98.6 F 81 16 110/73 96 04/02/18 11:35 04/02/18 11:35 04/02/18 11:35 04/02/18 11:35 04/02/18 11:35 Intake & Output 04/01/18 04/02/18 04/03/18 05:59 05:59 05:59 Intake Total 800 1225 0 Output Total 615 200 0 Balance 185 1025 0 Weight 173 lb 11.588 oz 179 lb 0.246 oz General appearance: PRESENT: no acute distress, hard of hearing, obese Respiratory exam: PRESENT: clear to auscultation micheal Cardiovascular exam: PRESENT: RRR GI/Abdominal exam: PRESENT: soft, tenderness - Mildly tender along the left margin Extremities exam: PRESENT: +2 edema - Below the knees Neurological exam: PRESENT: alert Psychiatric exam: PRESENT: appropriate affect Skin exam: PRESENT: warm Results Laboratory Results: 04/02/18 05:54 04/02/18 05:54 04/02/18 04/02/18 05:54 05:54 WBC 8.8 RBC 3.15 L Hgb 10.2 L Hct 30.1 L MCV 96 MCH 32.2 MCHC 33.7 RDW 13.8 Plt Count 346 Seg Neutrophils % 58.1 Lymphocytes % 19.5 Monocytes % 7.3 Eosinophils % 14.0 H Basophils % 1.1 Absolute Neutrophils 5.1 Absolute Lymphocytes 1.7 Absolute Monocytes 0.6 Absolute Eosinophils 1.2 H Absolute Basophils 0.1 Sodium 148.4 H Potassium 2.8 L* Chloride 107 Carbon Dioxide 34 H Anion Gap 7 BUN 4 L Creatinine 0.79 Est GFR ( Amer) > 60 Est GFR (Non-Af Amer) > 60 Glucose 79 Calcium 8.9 Phosphorus 2.9 Magnesium 1.5 L Total Bilirubin 0.1 L AST 20 ALT 30 Alkaline Phosphatase 52 Total Protein 5.1 L Albumin 2.6 L 04/02/18 06:25 NT-Pro-B Natriuret Pep 501 H Impressions: Abdomen/Pelvis CT 03/26/18 00:00 IMPRESSION: Descending colon diverticulitis without abscess, similar compared to 03/25/2018 CT abdomen pelvis. Head MRI 03/31/18 00:00 IMPRESSION: NORMAL MRI OF THE BRAIN WITHOUT AND WITH INTRAVENOUS GADOLINIUM CONTRAST. EVIDENCE OF ACUTE STROKE: NO. Assessment & Plan - Diagnosis (1) Acute diverticulitis of intestine Is this a current diagnosis for this admission?: Yes Plan: Pain is greatly improved. Diarrhea persists. She has not been on a week of antibiotics and they this evening. I will check a C. difficile, since one has not been checked previously, and consult GI. (2) Bipolar depression Is this a current diagnosis for this admission?: Yes Plan: Continue home medications (3) Diarrhea Qualifiers: Diarrhea type: unspecified type Qualified Code(s): R19.7 - Diarrhea, unspecified Is this a current diagnosis for this admission?: Yes (4) Hypokalemia Is this a current diagnosis for this admission?: Yes Plan: Replace and recheck in the morning.
[2018-04-02] MEDS: ACETAMINOPHEN 325 MG TABLET PO PRN (14:49)
[2018-04-02] MEDS ORDERED: CHLOROTHIAZIDE SODIUM INJ/PF 500 MG SDV IV ONE ×2 (15:30→16:00)
[2018-04-02] MEDS: VANCOMYCIN HCL INJ 500 MG VIAL PO SCH (18:33)
[2018-04-02] MEDS: ASPIRIN 81 MG TABLET, ENT COATED PO SCH (22:36)
[2018-04-02] MEDS: SIMVASTATIN 40 MG TABLET PO SCH (22:36)
[2018-04-02] MEDS: GABAPENTIN 400 MG CAPSULE PO SCH (22:36)
[2018-04-02] MEDS: CARBAMAZEPINE 100 MG TAB.SR.12H PO SCH (22:36)
[2018-04-03] MEDS: VANCOMYCIN HCL INJ 500 MG VIAL PO SCH ×4 (00:17→18:03)
[2018-04-03] MEDS: CLONAZEPAM 1 MG TABLET PO SCH (05:03)
[2018-04-03] MEDS: HEPARIN SOD (PORCINE) 5,000 UNIT/ML 1 ML SYRINGE SUBCUT SCH ×3 (05:03→22:15)
[2018-04-03 06:37] LABS: BLOOD UREA NITROGEN 6 mg/dL (7-20); CHLORIDE 107 mmol/L (98-107); PHOSPHORUS 2.7 mg/dL (2.5-4.5)
[2018-04-03 06:47] LABS: ALBUMIN 2.7 g/dL (3.5-5.0); ANION GAP 8 (5-19); CALCIUM 9.2 mg/dL (8.4-10.2); CARBON DIOXIDE 32 mmol/L (22-30); GLUCOSE 82 mg/dL (75-110); SODIUM 146.5 mmol/L (137-145)
[2018-04-03] MEDS: LEVOTHYROXINE SODIUM 0.075 MG TABLET PO SCH (09:10)
[2018-04-03] MEDS: ACETAMINOPHEN 325 MG TABLET PO PRN (09:10)
[2018-04-03] MEDS: LACTOBACILLUS ACIDOPHILUS 250 MG TAB PO SCH ×2 (09:10→18:03)
--- NOTE | 2018-04-03 12:40 | PDOC PROGRESS REPORT ---
Subjective Progress Note for:: 04/03/18 Subjective:: Tolerating a light diet. No diarrhea since 8:00 last night. No new complaints. Reason For Visit: ACUTE DIVERTICULITIS Physical Exam Vital Signs: Temp Pulse Resp BP Pulse Ox 99.1 F 90 19 120/88 H 90 L 04/03/18 06:00 04/03/18 06:00 04/03/18 06:00 04/03/18 06:00 04/03/18 06:00 Intake & Output 04/02/18 04/03/18 04/04/18 05:59 05:59 05:59 Intake Total 1225 1014 90 Output Total 200 300 300 Balance 1025 714 -210 Weight 173 lb 11.588 oz 179 lb 0.246 oz General appearance: PRESENT: no acute distress, cooperative, hard of hearing, obese Respiratory exam: PRESENT: clear to auscultation micheal Cardiovascular exam: PRESENT: RRR GI/Abdominal exam: PRESENT: soft. ABSENT: tenderness - Minimal tenderness along the left margin Extremities exam: PRESENT: +1 edema - Pitting below the knees, other Musculoskeletal exam: PRESENT: normal inspection Neurological exam: PRESENT: alert Psychiatric exam: PRESENT: appropriate affect Skin exam: PRESENT: warm Results Laboratory Results: 04/02/18 05:54 04/03/18 03:15 04/03/18 03:15 Sodium 146.5 H Potassium 4.0 D Chloride 107 Carbon Dioxide 32 H Anion Gap 8 BUN 6 L Creatinine 0.80 Est GFR ( Amer) > 60 Est GFR (Non-Af Amer) > 60 Glucose 82 Calcium 9.2 Phosphorus 2.7 Magnesium 1.6 Albumin 2.7 L 04/02/18 04/03/18 06:25 03:15 NT-Pro-B Natriuret Pep 501 H 456 H Impressions: Abdomen/Pelvis CT 03/26/18 00:00 IMPRESSION: Descending colon diverticulitis without abscess, similar compared to 03/25/2018 CT abdomen pelvis. Head MRI 03/31/18 00:00 IMPRESSION: NORMAL MRI OF THE BRAIN WITHOUT AND WITH INTRAVENOUS GADOLINIUM CONTRAST. EVIDENCE OF ACUTE STROKE: NO. Assessment & Plan - Diagnosis (1) C. difficile diarrhea Is this a current diagnosis for this admission?: Yes Plan: Probably an opportunistic infection following antibiotics for her diverticulitis. Treating with oral vancomycin. Continue (2) Acute diverticulitis of intestine Is this a current diagnosis for this admission?: Yes Plan: Pain is greatly improved. Diarrhea persists. Antibiotics have been stopped. (3) Bipolar depression Is this a current diagnosis for this admission?: Yes Plan: Continue home medications (4) Hypokalemia Is this a current diagnosis for this admission?: Yes Plan: Resolved. Recheck in the morning.
[2018-04-03] MEDS: CARBAMAZEPINE 100 MG TAB.SR.12H PO SCH (22:14)
[2018-04-03] MEDS: GABAPENTIN 400 MG CAPSULE PO SCH (22:14)
[2018-04-03] MEDS: SIMVASTATIN 40 MG TABLET PO SCH (22:14)
[2018-04-03] MEDS: ASPIRIN 81 MG TABLET, ENT COATED PO SCH (22:14)
[2018-04-04] MEDS: VANCOMYCIN HCL INJ 500 MG VIAL PO SCH ×5 (01:12→23:12)
[2018-04-04] MEDS: CLONAZEPAM 1 MG TABLET PO SCH (05:42)
[2018-04-04] MEDS: HEPARIN SOD (PORCINE) 5,000 UNIT/ML 1 ML SYRINGE SUBCUT SCH ×3 (05:42→21:15)
[2018-04-04] MEDS: ACETAMINOPHEN 325 MG TABLET PO PRN (07:53)
[2018-04-04] MEDS: LEVOTHYROXINE SODIUM 0.075 MG TABLET PO SCH (09:58)
[2018-04-04] MEDS: LACTOBACILLUS ACIDOPHILUS 250 MG TAB PO SCH ×2 (09:58→17:15)
--- NOTE | 2018-04-04 11:40 | PROGRESS NOTE E ---
Progress Note NAME: ERIC PRETTY : 1940 AGE: 77Y DATE: 04/04/2018 ROOM: 306 SUBJECTIVE: The patient is a pleasant 77-year-old female who has a past medical history of gallbladder disorder. Patient was admitted with abdominal pain and diarrhea. She was found to have C. diff colitis and patient was started on vancomycin p.o. She still continues to have the diarrhea. She had several bowel movements this morning. Her potassium was low at 2.8 and was replaced. OBJECTIVE: GENERAL: Patient is lying in bed, not in distress. VITAL SIGNS: Blood pressure 143/75, temperature 98.6, heart rate 100, saturation 92%, respiratory rate 17. HEENT: Head is normocephalic, atraumatic. Pupils round, reactive to the light and accommodation bilaterally. Extraocular movements intact. Ears: Tympanic membranes are intact bilaterally. No discharge from the ears. No discharge from the nose. NECK: Supple. No increased JVD. No thyromegaly. No lymphadenopathy. CARDIOVASCULAR: Normal S1, S2. Regular rate and rhythm. No murmur. No gallop. RESPIRATORY: Lungs clear. ABDOMEN: Soft, nontender. MUSCULOSKELETAL: No edema. NEUROLOGIC: Awake, alert. LABORATORY STUDIES: White blood count 8.8, hemoglobin 10.2. Sodium 143, potassium 4.0, creatinine 0.8. ASSESSMENT AND PLAN: 1. C. DIFF COLITIS, ON VANCOMYCIN. 2. ACUTE DIVERTICULITIS OF INTESTINE. 3. GALLBLADDER DISORDER. 4. HYPOKALEMIA. PLAN: 1. Replace potassium, which has been done. 2. Continue vancomycin p.o. 3. Continue her home medications. DISPOSITION: Probably home tomorrow. DICTATING PHYSICIAN: JOSIAH ALBERTS M.D. [id number] PHY#: [id number] ID: [id number] JOB#: [id number] ACCT: [id number] cc: >
[2018-04-04] MEDS: CARBAMAZEPINE 100 MG TAB.SR.12H PO SCH (21:14)
[2018-04-04] MEDS: SIMVASTATIN 40 MG TABLET PO SCH (21:14)
[2018-04-04] MEDS: ASPIRIN 81 MG TABLET, ENT COATED PO SCH (21:14)
[2018-04-04] MEDS: GABAPENTIN 400 MG CAPSULE PO SCH (21:14)
[2018-04-04 21:51] LABS: ANION GAP 10 (5-19); BLOOD UREA NITROGEN 8 mg/dL (7-20); CARBON DIOXIDE 34 mmol/L (22-30); CHLORIDE 104 mmol/L (98-107); GLUCOSE 101 mg/dL (75-110); POTASSIUM 4.2 mmol/L (3.6-5.0); SODIUM 147.7 mmol/L (137-145)
[2018-04-05] MEDS: HEPARIN SOD (PORCINE) 5,000 UNIT/ML 1 ML SYRINGE SUBCUT SCH ×3 (06:14→21:04)
[2018-04-05] MEDS: CLONAZEPAM 1 MG TABLET PO SCH (06:15)
[2018-04-05] MEDS: VANCOMYCIN HCL INJ 500 MG VIAL PO SCH ×4 (06:15→23:28)
[2018-04-05 07:30] LABS: HEMATOCRIT 30.8 % (36.0-47.0); HEMOGLOBIN 10.2 g/dL (12.0-15.5); MEAN CORPUSCULAR HEMOGLOBIN 31.9 pg (27.0-33.4); MEAN CORPUSCULAR VOLUME 97 fl (80-97); PLATELET COUNT 323 10^3/uL (150-450); RED BLOOD COUNT 3.19 10^6/uL (3.72-5.28); RED CELL DISTRIBUTION WIDTH 14.2 % (11.5-14.0); WHITE BLOOD COUNT 7.5 10^3/uL (4.0-10.5)
[2018-04-05 07:40] LABS: ALBUMIN 2.7 g/dL (3.5-5.0); ANION GAP 8 (5-19); BLOOD UREA NITROGEN 7 mg/dL (7-20); CALCIUM 9.7 mg/dL (8.4-10.2); CARBON DIOXIDE 34 mmol/L (22-30); CHLORIDE 105 mmol/L (98-107); GLUCOSE 96 mg/dL (75-110); PHOSPHORUS 3.7 mg/dL (2.5-4.5); POTASSIUM 3.7 mmol/L (3.6-5.0); SODIUM 147.2 mmol/L (137-145)
[2018-04-05 08:09] LABS: ABSOLUTE MONOCYTES # (MANUAL) 0.2 10^3/uL (0.1-1.4); ABSOLUTE NEUTROPHILS# (MANUAL) 4.1 10^3/uL (1.7-8.2); EOSINOPHILS % (MANUAL) 14 % (0-6); LYMPHOCYTES % (MANUAL) 26 % (13-45); MONOCYTES % (MANUAL) 2 % (3-13); SEGMENTED NEUTROPHILS % (MAN) 54 % (42-78); TOTAL CELLS COUNTED 100
[2018-04-05 08:10] LABS: ANISOCYTOSIS SLIGHT; OVALOCYTES 1+; PLATELET COMMENT ADEQUATE; POIKILOCYTOSIS 1+
[2018-04-05 08:11] LABS: BASOPHILS % (MANUAL) 4 % (0-2)
[2018-04-05] MEDS: LEVOTHYROXINE SODIUM 0.075 MG TABLET PO SCH (10:07)
[2018-04-05] MEDS: LACTOBACILLUS ACIDOPHILUS 250 MG TAB PO SCH ×2 (10:08→18:36)
--- NOTE | 2018-04-05 10:30 | PROGRESS NOTE E ---
Progress Note NAME: ERIC PRETTY : 1940 AGE: 77Y DATE: 04/05/2018 ROOM: 306 SUBJECTIVE: The patient is a 77-year-old female who has a past medical history significant for depression The patient admitted with abdominal pain and diarrhea. Was found to have C. diff colitis and she is on vancomycin. She is having hypokalemia. Potassium has been replaced. The patient is feeling better today. OBJECTIVE: GENERAL: Patient is lying in bed, comfortable, not in distress. VITAL SIGNS: Temperature 98.3, heart rate 77, respiratory 14, blood pressure 125/66, saturation 95% on 3 L. HEENT: Head is normocephalic, atraumatic. Pupils round, reactive to the light and accommodation bilaterally. Extraocular movements intact. Ears: Tympanic membranes are intact bilaterally. No discharge from the ears. No discharge from the nose. NECK: Supple. No increased JVD. No thyromegaly. No lymphadenopathy. CARDIOVASCULAR: Normal S1, S2. Regular rate and rhythm. No murmur. No gallop. RESPIRATORY: Lungs clear. ABDOMEN: Soft. MUSCULOSKELETAL: No edema. NEUROLOGIC: Awake, alert. LABORATORY STUDIES: White blood count 7.5, hemoglobin 10. Sodium 147, potassium 3.7. ASSESSMENT AND PLAN: 1. C. DIFF COLITIS, IMPROVING SLOWLY. SHE STILL HAS SOME DIARRHEA. CONTINUE VANCOMYCIN ORALLY. 2. ACUTE DIVERTICULITIS OF INTESTINE. 3. BIPOLAR WITH DEPRESSION. 4. HYPOKALEMIA. Replaced. PLAN: 1. Continue vancomycin p.o. 2. The patient need a regimen for home oxygen and that will be done tomorrow. DISPOSITION: Home tomorrow morning after a arrangement home oxygen if diarrhea improves. DICTATING PHYSICIAN: JOSIAH ALBERTS M.D. [id number] PHY#: [id number] ID: [id number] JOB#: [id number] ACCT: [id number] cc: > MTDD
[2018-04-05] MEDS: GABAPENTIN 400 MG CAPSULE PO SCH (21:04)
[2018-04-05] MEDS: SIMVASTATIN 40 MG TABLET PO SCH (21:05)
[2018-04-05] MEDS: ASPIRIN 81 MG TABLET, ENT COATED PO SCH (21:05)
[2018-04-05] MEDS: CARBAMAZEPINE 100 MG TAB.SR.12H PO SCH (21:07)
[2018-04-06] MEDS: HEPARIN SOD (PORCINE) 5,000 UNIT/ML 1 ML SYRINGE SUBCUT SCH ×2 (05:15→15:20)
[2018-04-06] MEDS: VANCOMYCIN HCL INJ 500 MG VIAL PO SCH ×2 (05:15→13:30)
[2018-04-06] MEDS: CLONAZEPAM 1 MG TABLET PO SCH (05:16)
[2018-04-06 05:38] LABS: HEMATOCRIT 31.6 % (36.0-47.0); HEMOGLOBIN 10.5 g/dL (12.0-15.5); MEAN CORPUSCULAR HEMOGLOBIN 31.9 pg (27.0-33.4); MEAN CORPUSCULAR HGB CONC 33.2 g/dL (32.0-36.0); MEAN CORPUSCULAR VOLUME 96 fl (80-97); PLATELET COUNT 327 10^3/uL (150-450); RED BLOOD COUNT 3.28 10^6/uL (3.72-5.28); RED CELL DISTRIBUTION WIDTH 14.4 % (11.5-14.0); WHITE BLOOD COUNT 8.5 10^3/uL (4.0-10.5)
[2018-04-06 06:34] LABS: ABSOLUTE LYMPHOCYTES# (MANUAL) 1.9 10^3/uL (0.5-4.7); ABSOLUTE MONOCYTES # (MANUAL) 0.5 10^3/uL (0.1-1.4); ABSOLUTE NEUTROPHILS# (MANUAL) 4.9 10^3/uL (1.7-8.2); ANISOCYTOSIS SLIGHT; BAND NEUTROPHILS % (MANUAL) 2 % (3-5); BASOPHILS % (MANUAL) 0 % (0-2); EOSINOPHILS % (MANUAL) 14 % (0-6); LYMPHOCYTES % (MANUAL) 22 % (13-45); MONOCYTES % (MANUAL) 6 % (3-13); NUCLEATED RED BLOOD CELLS 1 /100 WBC (0); PLATELET COMMENT ADEQUATE; SEGMENTED NEUTROPHILS % (MAN) 56 % (42-78); TOTAL CELLS COUNTED 100; TOXIC VACUOLATION PRESENT
[2018-04-06 07:16] LABS: ALBUMIN 2.7 g/dL (3.5-5.0); ANION GAP 9 (5-19); BLOOD UREA NITROGEN 13 mg/dL (7-20); CALCIUM 9.5 mg/dL (8.4-10.2); CARBON DIOXIDE 34 mmol/L (22-30); CHLORIDE 104 mmol/L (98-107); GLUCOSE 95 mg/dL (75-110); POTASSIUM 3.8 mmol/L (3.6-5.0); SODIUM 146.8 mmol/L (137-145)
[2018-04-06 07:17] LABS: PHOSPHORUS 3.9 mg/dL (2.5-4.5)
[2018-04-06] MEDS: LEVOTHYROXINE SODIUM 0.075 MG TABLET PO SCH (10:18)
[2018-04-06] MEDS: LACTOBACILLUS ACIDOPHILUS 250 MG TAB PO SCH (10:18)
[2018-04-06 15:59] VITALS: BP 133/70
--- NOTE | 2018-04-06 23:32 | PDOC DISCHARGE SUMMARY ---
General - Admit/Disc Date/PCP Admission Date/Primary Care Provider: 03/26/18 14:47 USHA MADRIGAL MD Discharge Date: 04/06/18 - Discharge Diagnosis (1) C. difficile diarrhea Is this a current diagnosis for this admission?: Yes (2) Acute diverticulitis of intestine Is this a current diagnosis for this admission?: Yes (3) Diarrhea Is this a current diagnosis for this admission?: Yes (4) Bipolar depression Is this a current diagnosis for this admission?: Yes (5) Confusion Is this a current diagnosis for this admission?: Yes (6) Hypokalemia Is this a current diagnosis for this admission?: Yes (7) Hypothyroidism Is this a current diagnosis for this admission?: Yes (8) Hypoxemia Is this a current diagnosis for this admission?: Yes (9) Seizure disorder Is this a current diagnosis for this admission?: Yes - Additional Information Resuscitation Status: Full Code Discharge Diet: As Tolerated, Regular Discharge Activity: Activity As Tolerated Prescriptions: Saccharomyces Boulardii [Florastor] 250 mg PO BID 10 Days #20 capsule Vancomycin HCl [Vancocin Inj 500 mg Vial] 250 mg PO Q6 10 Days #40 dose Home Medications: Ascorbic Acid [Vitamin C 500 mg Tablet] 500 mg PO DAILY 03/26/18 Aspirin [Aspirin EC] 81 mg PO QHS 03/26/18 Biotin 5,000 mcg PO DAILY 03/26/18 Calcium Citrate/Vitamin D3 [Calcium Citrate - Vit D3 Tab] 1 each PO DAILY Carbamazepine [Carbamazepine ER] 100 mg PO DAILY 03/26/18 Cholecalciferol (Vitamin D3) [Vitamin D3 1000 Unit Tablet] 1,000 unit PO DAILY 03/26/18 Clonazepam [Klonopin 1 mg Tablet] 1 mg PO DAILY 03/26/18 Cyanocobalamin (Vitamin B-12) [Vitamin B12] 1,000 mcg PO DAILY 03/26/18 Ferrous Sulfate [Iron] 65 mg PO DAILY 03/26/18 Furosemide [Lasix 20 mg Tablet] 20 mg PO BID 03/26/18 Gabapentin [Neurontin] 1,200 mg PO QHS 03/26/18 Levothyroxine Sodium [Synthroid] 75 mcg PO DAILY 03/26/18 Metoprolol Succinate [Toprol Xl 50 mg Tab.sr] 50 mg PO Q3D 03/26/18 Multivit-Min/Iron/Folic/Lutein [Centrum Silver Women Tablet] 1 each PO DAILY Ondansetron [Zofran Odt] 8 mg PO Q6HP PRN 03/26/18 Potassium Chloride [K-Tab ER] 20 meq PO DAILY 03/26/18 Simvastatin [Zocor 40 mg Tablet] 40 mg PO QHS 03/26/18 Saccharomyces Boulardii [Florastor] 250 mg PO BID 10 Days #20 capsule 04/06/18 Vancomycin HCl [Vancocin Inj 500 mg Vial] 250 mg PO Q6 10 Days #40 dose History of Present Illness History of Present Illness: ERIC PRETTY is a 77 year old female with a past medical history of chronic hypotension and diverticulitis that yesterday was seen in the ER and discharged home. Presents back again with a left sided abdominal pain as well as left upper quadrant abdominal pain. Even slight movement or any bumps on the street causes her severe pain. Denies any diarrhea or constipation but nauseous. Had fever and chills. She was given ceftriaxone yesterday and an amoxicillin and sent home from the ER. Appears the patient does have an issue with constipation. She initially thought that her symptoms were triggered by an impaction last week. The patient did have a bowel movement on Friday and subsequently had persistent abdominal pain since that time. She states that her symptoms initially started about a week ago with a complaint of suprapubic and left lower quadrant sharp stabbing pains with associated constipation. She states that she has had decreased appetite with nausea and belching. Due to previous Jesus she has difficulty vomiting did manage to have an episode of vomiting Friday before presentation. Daughter states that since she started the Keflex her pain has become more diffuse and worsening in severity now more generalized in the left lower quadrant. She was sent home yesterday with large dose of Augmentin the patient's symptoms did persist. Patient is allergic to fluoroquinolones. The patient was referred to the hospitalist for admission and management due to failure of antibiotic treatment with Keflex and Augmentin. Hospital Course Hospital Course: Patient had a prior UTI that was treated with antibiotics and developed abdominal pain and diarrhea. She was found on CT abd/pel scan to have a descending diverticulitis and was started on additional antibiotics. Abdominal pain and loose stools did not improve. She was re-evaluated with CT imaging and found to have an unchanging area of inflammation in her colon. C. Diff testing was found to be positive and she was started on oral Vancomycin. Her loose stooling frequency and stool consistency both improved over time. She requested discharge on 04/06/18, and was allowed to go home and finish the remaining 10 days of oral Vancomycin for her total 14 day treatment. Followup requested with her PCP in the next week to evaluate her continued improvement. Physical Exam Vital Signs: Temp Pulse Resp BP Pulse Ox 98.3 F 94 20 133/70 H 99 04/06/18 15:57 04/06/18 15:57 04/06/18 15:57 04/06/18 15:57 04/06/18 15:57 Intake & Output 04/05/18 04/06/18 04/07/18 06:59 06:59 06:59 Intake Total 1114 1250 237 Output Total 1250 650 500 Balance -136 600 -263 Weight 79.6 kg 81.7 kg General appearance: PRESENT: no acute distress, obese Head exam: PRESENT: atraumatic, normocephalic Eye exam: PRESENT: EOMI, PERRLA Ear exam: PRESENT: normal external ear exam. ABSENT: bleeding Mouth exam: PRESENT: moist, neck supple Throat exam: ABSENT: tonsillar exudate, tonsillogmegaly Neck exam: ABSENT: tenderness, thyromegaly Respiratory exam: ABSENT: rales, rhonchi, wheezes Cardiovascular exam: PRESENT: RRR, +S1, +S2 Pulses: PRESENT: normal radial pulses, normal dorsalis pedis pul GI/Abdominal exam: PRESENT: soft. ABSENT: distended, mass, rigid Extremities exam: ABSENT: joint swelling, pedal edema, tenderness Musculoskeletal exam: PRESENT: full ROM, normal inspection Neurological exam: PRESENT: alert, oriented to person, oriented to place, oriented to time, oriented to situation Psychiatric exam: PRESENT: appropriate affect. ABSENT: flat affect Focused psych exam: ABSENT: delusional, paranoid Skin exam: ABSENT: mottled, normal color Results Laboratory Results: 04/06/18 04:00 04/06/18 04:00 04/06/18 04/06/18 04:00 04:00 WBC 8.5 RBC 3.28 L Hgb 10.5 L Hct 31.6 L MCV 96 MCH 31.9 MCHC 33.2 RDW 14.4 H Plt Count 327 Seg Neutrophils % Not Reportable Lymphocytes % Not Reportable Monocytes % Not Reportable Eosinophils % Not Reportable Basophils % Not Reportable Absolute Neutrophils Not Reportable Absolute Lymphocytes Not Reportable Absolute Monocytes Not Reportable Absolute Eosinophils Not Reportable Absolute Basophils Not Reportable Sodium 146.8 H Potassium 3.8 Chloride 104 Carbon Dioxide 34 H Anion Gap 9 BUN 13 Creatinine 0.73 Est GFR ( Amer) > 60 Est GFR (Non-Af Amer) > 60 Glucose 95 Calcium 9.5 Phosphorus 3.9 Magnesium 1.5 L Albumin 2.7 L 04/02/18 04/03/18 06:25 03:15 NT-Pro-B Natriuret Pep 501 H 456 H Impressions: Abdomen/Pelvis CT 03/26/18 00:00 IMPRESSION: Descending colon diverticulitis without abscess, similar compared to 03/25/2018 CT abdomen pelvis. Head MRI 03/31/18 00:00 IMPRESSION: NORMAL MRI OF THE BRAIN WITHOUT AND WITH INTRAVENOUS GADOLINIUM CONTRAST. EVIDENCE OF ACUTE STROKE: NO. Qualifiers - * PATIENT BEING DISCHARGED WITH ANY OF THE FOLLOWING DIAGNOSIS: No Plan Discharge Plan: f/u with her PCP in next 5-7 days resume prior diet activity as tolerated Time Spent: Greater than 30 Minutes
[2018-04-07] MEDS ORDERED: LEVOTHYROXINE SODIUM 0.075 MG TABLET PO SCH (06:00)
[2018-04-07 10:46] LABS: PATH REVIEW PATHOLOGIST REVIEWED
== END 2018-04-06 17:18 | disposition home health service (06) | DRG 372 ==
LOC: ER 14:04 → EH 14:47 → 3N 17:25 → UNDODISIN 19:17
PROVIDERS: ADMIT Emergency Medicine; ATTEND Emergency Medicine
DX: A04.72 Enterocolitis due to Clostridium difficile, not specified as recurrent (principal); K57.32 Diverticulitis of large intestine without perforation or abscess without bleeding; I95.89 Other hypotension; E87.5 Hyperkalemia; I25.10 Atherosclerotic heart disease of native coronary artery without angina pectoris; G47.30 Sleep apnea, unspecified; M19.90 Unspecified osteoarthritis, unspecified site; F31.9 Bipolar disorder, unspecified; E87.6 Hypokalemia; R09.02 Hypoxemia; G47.33 Obstructive sleep apnea (adult) (pediatric); G40.909 Epilepsy, unspecified, not intractable, without status epilepticus; K59.00 Constipation, unspecified; Z88.1 Allergy status to other antibiotic agents; Z90.49 Acquired absence of other specified parts of digestive tract; Z90.710 Acquired absence of both cervix and uterus; Z87.891 Personal history of nicotine dependence; Z82.49 Family history of ischemic heart disease and other diseases of the circulatory system; Z80.6 Family history of leukemia; Z80.8 Family history of malignant neoplasm of other organs or systems; Z88.6 Allergy status to analgesic agent; Z88.2 Allergy status to sulfonamides; Z85.3 Personal history of malignant neoplasm of breast; Z92.21 Personal history of antineoplastic chemotherapy; Z92.3 Personal history of irradiation
CPT/HCPCS: 36415; 70553; 71045; 74176; 74177; 80048; 80053; 80069; 81001; 82272; 82550; 82553; 82803; 83605; 83735; 83880; 84100; 84439; 84443; 84481; 84484; 85025; 85027; 85610; 87040; 87086; 87493; 93005; 93010; 99285; A9577; G8978-GP; G8979-GP; J1205; J1644; J2543; J3370; J3490; J7120; J7620; S0119

== ENCOUNTER → 2018-07-27 | Outpatient (CLI) | payer MEDICARE, OTHER ==
--- NOTE | 2018-07-27 18:52 | RADIOLOGY REPORT (SQ) ---
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 TECHNIQUE: Dynamic and static vargas-scale images acquired of the thyroid gland. Selected additional c olor/power Doppler images recorded. All images stored to PACS. LIMITATIONS: None. FINDINGS: Sonographic imaging in the clavicular areas shows a very questionable 4 mm hypoechoic area in the left supraclavicular region. IMPRESSION: Very questionable 4 mm supraclavicular node on the left. TECHNICAL DOCUMENTATION: JOB ID: [id number] [employer]- All Rights Reserved Reading location - IP/workstation name: [email or web address]
== END ==
LOC: RAD 16:28
PROVIDERS: ATTEND Internal Medicine Hematology & Oncology
DX: C50.312 Malignant neoplasm of lower-inner quadrant of left female breast (principal); R59.9 Enlarged lymph nodes, unspecified
CPT/HCPCS: 76536

== ENCOUNTER 2018-08-31 10:50 | Day surgery (SDC) | payer MEDICARE, OTHER ==
[~2018-08-31 10:50] MED LIST: PROPOFOL INJ 200 MG/20 ML VIAL IV ONE
[2018-08-31 12:13] VITALS: BP 143/76
--- NOTE | 2018-08-31 12:51 | Operative Report ---
Operative Report DATE OF SURGERY: 08/31/18 Operative Report: The risks, benefits and alternatives of the procedure including the risk of bleeding, perforation requiring surgery are explained to the patient in detail and informed consent is obtained. The patient is brought back to the endoscopy suite and placed in the left, lateral decubital position. Timeout was called. Propofol medication is administered. Rectal examination is done which did not reveal any masses, tears or fissures. An Olympus videoscope was introduced into the patient's rectum. It is carefully advanced all the way to the cecum. The cecum was identified by the usual anatomical landmarks including the ileocecal valve as well as appendiceal office. Photodocumentation is obtained. Prep was good. The scope was then sequentially pulled back via the rest segments of the colon including the ascending colon, hepatic flexure, transverse colon, splenic flexure, descending colon and finally in to the rectosigmoid portions of the colon. Retroflexion maneuver was performed. The risks benefits and alternatives of the procedure explained to the patient in detail and informed consent is obtained.A GIF Olympus video scope was inserted into the patient's mouth and hypopharynx, the esophagus is identified intubated and insufflated, the scope was then advanced through the esophagus stomach and duodenum, retroflexion maneuver is done the esophagus stomach and first and second portions of the duodenum examined PREOPERATIVE DIAGNOSIS: Change in bowel habits rule out ischemic colitis. Known history of diverticulosis. Early satiety. Dysphagia POSTOPERATIVE DIAGNOSIS: Prominent and moderately severe sigmoid diverticulosis without any evidence of diverticulitis. No obstruction seen. No polyps noted. No evidence of ischemic colitis. Internal hemorrhoids. Mild right colon inflammation status post biopsy. Gastritis status post biopsy rule out Helicobacter pylori. Esophagitis status post biopsy rule out Larsen's esophagus. Hiatal hernia OPERATION: Colonoscopy with biopsy. EGD with biopsy SURGEON: LEONIDAS HENAO ANESTHESIA: LMAC TISSUE REMOVED OR ALTERED: As noted above. COMPLICATIONS: None. ESTIMATED BLOOD LOSS: None. INTRAOPERATIVE FINDINGS: As noted above. PROCEDURE: Patient tolerated procedure well. No immediate postprocedure complications are noted. Patient discharged in good condition. Discharge date 08/31/2018. Discharge diet: Regular. Discharge activity: Regular. 2-3-week follow-up to discuss findings. Patient is instructed call the office or proceed to the emergency room should there be any further proximal questions. Wait on the pathology.
== END 2018-08-31 12:15 | disposition home or self-care (01) ==
LOC: END 10:50
PROVIDERS: ATTEND Internal Medicine Gastroenterology
DX: K57.30 Diverticulosis of large intestine without perforation or abscess without bleeding (principal); K52.9 Noninfective gastroenteritis and colitis, unspecified; K64.8 Other hemorrhoids; K29.50 Unspecified chronic gastritis without bleeding; D64.9 Anemia, unspecified; E78.5 Hyperlipidemia, unspecified; J45.909 Unspecified asthma, uncomplicated; I11.9 Hypertensive heart disease without heart failure; K21.0 Gastro-esophageal reflux disease with esophagitis; Z85.3 Personal history of malignant neoplasm of breast; Z87.891 Personal history of nicotine dependence; Z86.73 Personal history of transient ischemic attack (TIA), and cerebral infarction without residual deficits; Z79.899 Other long term (current) drug therapy; Z87.440 Personal history of urinary (tract) infections; Z79.82 Long term (current) use of aspirin
CPT/HCPCS: 43239; 45380; 88342 ×2; 88305 ×2; J2704; 813

== ENCOUNTER 2018-09-21 10:17 | Day surgery (SDC) | payer MEDICARE, OTHER ==
[2018-09-21 11:44] VITALS: BP 106/65
--- NOTE | 2018-09-21 12:27 | Operative Report ---
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 Hiatal hernia OPERATION: EGD with radiofrequency ablation SURGEON: LEONIDAS HENAO ANESTHESIA: LMAC TISSUE REMOVED OR ALTERED: As noted above COMPLICATIONS: None. ESTIMATED BLOOD LOSS: None. INTRAOPERATIVE FINDINGS: As noted above. PROCEDURE: Patient tolerated the procedure well. No immediate postprocedure complications are noted. Patient discharged in good condition. Discharge date 09/21/2018. Discharge diet: Regular. Discharge activity: Regular. 2-3-week follow-up to discuss findings. Patient is instructed to call the office or proceed to the emergency room should there be any further problems or questions.
== END 2018-09-21 11:44 | disposition home or self-care (01) ==
LOC: END 10:17
PROVIDERS: ATTEND Internal Medicine Gastroenterology
DX: K22.719 Barrett's esophagus with dysplasia, unspecified (principal); K44.9 Diaphragmatic hernia without obstruction or gangrene; E78.5 Hyperlipidemia, unspecified; J45.909 Unspecified asthma, uncomplicated; D64.9 Anemia, unspecified; I10 Essential (primary) hypertension; Z85.3 Personal history of malignant neoplasm of breast; I11.9 Hypertensive heart disease without heart failure; Z87.891 Personal history of nicotine dependence; Z86.73 Personal history of transient ischemic attack (TIA), and cerebral infarction without residual deficits; Z87.440 Personal history of urinary (tract) infections; Z79.899 Other long term (current) drug therapy; Z79.82 Long term (current) use of aspirin
CPT/HCPCS: 43270; J2704; 731

== ENCOUNTER → 2018-12-03 | Outpatient (CLI) | payer MEDICARE, OTHER ==
--- NOTE | 2018-12-03 17:08 | WOMENS IMAGING REPORT ---
EXAM DESCRIPTION: 3D SCREENING MAMMO BILAT COMPLETED DATE/TIME: 12/03/2018 11:10 am REASON FOR STUDY: ROUTINE 3D BILATERAL SCREENING,Z12.31 C50.312 MALIG NEOPLASM OF LOWER-INNER QUADR ANT OF LEFT FEMAL Z12.31 ENCNTR SCREEN MAMMOGRAM FOR MALIGNANT NEOPLASM OF GHADA COMPARISON: Multiple since 2009 TECHNIQUE: Standard craniocaudal and mediolateral oblique views of each breast recorded using digita l acquisition and breast tomosynthesis. LIMITATIONS: None. FINDINGS: Findings present which are benign by mammographic criteria. No suspicious masses, calcifi cations or architectural distortion. Pertinent benign findings: Old post therapeutic changes left lower breast from lumpectomy and radiati on Read with the assistance of CAD. .[facility] - R2 Cenova Version 1.3 .[facility] - R2 Cenova Version 2.1 .[facility] - R2 Cenova Version 2.4 .[facility] [place] - R2 Cenova Version 2.4 .[facility], [facility] - R2 [employer] Version 9.2 Benign mammographic findings may include one or more of the following: Smooth masses, popcorn/rim/co arse calcifications, asymmetries, post-procedure changes, and lesions with long-standing stability. IMPRESSION: BENIGN MAMMOGRAPHIC FINDINGS. BIRADS 2 BREAST DENSITY: b. There are scattered areas of fibroglandular density. BIRAD: 2 BENIGN FINDING(S) RECOMMENDATION: RECOMMENDATION: ROUTINE SCREENING COMMENT: The patient has been notified of the results by letter per SA requirements. Additional no tification policies are in place for contacting patient with suspicious or incomplete findings. Quality ID #[id number]: The [employer] recommends an annual screening mammogram for women aged 40 years or over. This facility utilizes a reminder system to ensure that all patients receive reminder letters, and/or direct phone calls for appointments. This includes reminders for routine scr eening mammograms, diagnostic mammograms, or other Breast Imaging Interventions when appropriate. Th is patient will be placed in the appropriate reminder system. The [employer] (ACR) has developed recommendations for screening MRI of the breast s in certain patient populations, to be used in conjunction with mammography. Breast MRI surveillanc e may be appropriate for women with more than 20% lifetime risk of developing breast cancer as deter mined by genetic testing, significant family history of the disease, or history of mantle radiation f or Hodgkins Disease. ACR Practice Guidelines 2008. DBT Technology DBT is a type of tomographic mammography. With conventional mammography, overlapping breast tissue ma y make lesions difficult to detect, even with good compression. DBT uses an x-ray tube that rotates a round the breast, taking images at different angles. These images are then combined to create thin sl ices of the breast that the radiologist can view as a 3D reconstruction. The [employer] unit can perform full-field digital mammograms (2D imaging); or DBT (3D imaging); or both, in a combination mode that quickly performs both the mammogram and the tomosynthesis scan while the breast is still compressed. PQRS 6045F: Fluoroscopic imaging is not utilized for breast tomosynthesis. TECHNICAL DOCUMENTATION: FINDING NUMBER: (1) ASSESSMENT: (1) JOB ID: [id number] [employer]- All Rights Reserved Reading location - IP/workstation name: [email or web address]
== END ==
LOC: WI 10:32
PROVIDERS: ATTEND Internal Medicine Hematology & Oncology
DX: Z12.31 Encounter for screening mammogram for malignant neoplasm of breast (principal); Z85.3 Personal history of malignant neoplasm of breast
CPT/HCPCS: 77063; 77067

== ENCOUNTER → 2018-12-22 | Outpatient (CLI) | payer MEDICARE, OTHER ==
--- NOTE | 2018-12-22 14:55 | RADIOLOGY REPORT (SQ) ---
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 The route of agent administration: Intravenous. ADDITIONAL DRUGS AND DOSES: None. TECHNIQUE: Routine delayed images at 3 hours post radionuclide injection acquired of the bony skelet on including anterior and posterior whole-body projections and additional focused images as needed. LIMITATIONS: None. FINDINGS: BONES: Mild convex rightward thoracic curvature with spotty thoracic and lumbar spine upt ana rosa in characteristic locations for osteoarthritis. Increased uptake bilateral shoulders, right wrist, left knee, bilateral mid feet in characteristic lo cations for osteoarthritis. No increased uptake worrisome for metastatic breast cancer over the skeleton. KIDNEYS: Symmetric excretion without obstruction. OTHER: No other significant finding. IMPRESSION: No findings worrisome for metastatic disease COMMENT: Quality measure 147: Current bone scan is compared with any available plain radiographs, p rior bone scans, and CT/MRI. TECHNICAL DOCUMENTATION: JOB ID: [id number] [employer]- All Rights Reserved Reading location - IP/workstation name: [email or web address]
== END ==
LOC: RAD 10:52
PROVIDERS: ATTEND Internal Medicine Hematology & Oncology
DX: C50.312 Malignant neoplasm of lower-inner quadrant of left female breast (principal)
CPT/HCPCS: 78306; A9561; Q9969

== ENCOUNTER → 2018-12-25 | Outpatient (CLI) | payer MEDICARE, OTHER ==
--- NOTE | 2018-12-25 11:40 | WOMENS IMAGING REPORT ---
EXAM DESCRIPTION: BONE DENSITY HIP/SPINE COMPLETED DATE/TIME: 12/25/2018 11:20 am REASON FOR STUDY: M81.0 AGE-RELATED OSTEOPOROSIS WITHOUT CURRENT PATHOLOGICAL FRACTURE M81.0 AGE-RE LATED OSTEOPOROSIS W/O CURRENT PATHOLOGICAL FRAC COMPARISON: 05/08/2016 back to 07/04/2004 TECHNIQUE: Dual-Energy X-ray Absorptiometry (DEXA) of the AP Spine and Hip. LIMITATIONS: None. FINDINGS: LUMBAR SPINE: The bone mineral density (BMD) measured from L1-L4 in the AP projection correlates with a T-score of 0.6, which is normal as defined by the World Health Organization. HIP: The bone mineral density (BMD) measured in the left hip correlates with a T-score of -1.0, which is n ormal as defined by the World Health Organization. IMPRESSION: 1. LUMBAR SPINE: Normal 2. HIP: Normal COMMENT: The World Health Organization defines low BMD as follows: T-score: Normal: Greater than -1.0 Osteopenia: Between -1.0 and -2.5 Osteoporosis: Less than -2.5 without fractures Established osteoporosis: Less than -2.5 with fractures In general, you may wish to consider: Diagnosis Treatment Follow-up DEXA Normal BMD Prevention 2-3 years Osteopenia Prevention/Therapy 1-2 years Osteoporosis Therapy Yearly TECHNICAL DOCUMENTATION: JOB ID: [id number] All Rights Reserved Reading location - IP/workstation name: [email or web address]
== END ==
LOC: WI 09:46
PROVIDERS: ATTEND Physician Assistant
DX: M81.0 Age-related osteoporosis without current pathological fracture (principal)
CPT/HCPCS: 77080

== ENCOUNTER → 2018-12-31 | Outpatient (CLI) | payer MEDICARE, OTHER ==
--- NOTE | 2018-12-31 12:46 | RADIOLOGY REPORT (SQ) ---
EXAM DESCRIPTION: BARIUM SWALLOW ESOPHAGUS COMPLETED DATE/TIME: 12/31/2018 10:27 am REASON FOR STUDY: HISTORY OF SHOSHANA FUNDOPLICATION, EVALUA Z98.890 OTHER SPECIFIED POSTPROCEDURAL S TATES heartburn and epigastric pain COMPARISON: None. TECHNIQUE: Under fluoroscopic guidance, patient ingested thick and thin barium. Fluoroscopic spot im ages and routine radiographic images acquired and stored on PACS. 12 MM BARIUM TABLET GIVEN: Yes. No significant delay in passage. LIMITATIONS: None. FLUOROSCOPY TIME: FLUORO TIME: 3 minutes of fluoroscopy was used. 16 images saved to PACS. FINDINGS: NEUROMUSCULAR COORDINATION OF SWALLOW: Normal. No aspiration. ESOPHAGEAL MOTILITY: Slow primary peristalsis with tertiary contractions. ESOPHAGEAL MUCOSA: Postoperative changes at the distal esophagus from previous Shoshana fundoplication. No ulcerations or masses seen. GASTRO-ESOPHAGEAL JUNCTION: Recurrence of a small hiatal hernia. The Shoshana fundoplication may have come partially un-wrapped. Mild gastroesophageal reflux is identified. 12 mm barium tablet passed t hrough this area without delay. NON-GI TRACT STRUCTURES: No significant finding. OTHER: No other significant finding. IMPRESSION: RECURRENCE OF HIATAL HERNIA DUE TO POSSIBLE UN-WRAPPING OR PARTIAL UN-WRAPPING OF THE NI SSEN FUNDOPLICATION. MILD GASTROESOPHAGEAL REFLUX. . COMMENT: Quality ID 145: Final reports for procedures using fluoroscopy that document radiation exp osure indices, or exposure time and number of fluorographic images (if radiation exposure indices are not available) TECHNICAL DOCUMENTATION: JOB ID: [id number] [employer]- All Rights Reserved Reading location - IP/workstation name: [email or web address] [id number]
== END ==
LOC: RAD 09:21
PROVIDERS: ATTEND Internal Medicine Gastroenterology
DX: K44.9 Diaphragmatic hernia without obstruction or gangrene (principal); K21.9 Gastro-esophageal reflux disease without esophagitis; Z98.890 Other specified postprocedural states
CPT/HCPCS: 74220

== ENCOUNTER 2019-01-08 09:33 | Day surgery (SDC) | payer MEDICARE, OTHER ==
[~2019-01-08 09:33] MED LIST changes: +MIDAZOLAM 2 MG/2 ML INJ ONE
[2019-01-08] MEDS ORDERED: ALBUTEROL SULFATE 0.083% NEB 2.5 MG/3 ML AMPUL NEB ONE (10:10)
[2019-01-08 12:27] VITALS: BP 118/72
--- NOTE | 2019-01-08 12:41 | Operative Report ---
Operative Report DATE OF SURGERY: 01/08/19 Operative Report: The risks benefits and alternatives of the procedure explained to the patient in detail and informed consent is obtained.A GIF Olympus video scope was inserted into the patient's mouth and hypopharynx, the esophagus is identified intubated and insufflated ,the scope was then advanced through the esophagus stomach and duodenum, retroflexion maneuver is done, the esophagus stomach and first and second portions of the duodenum examined. PREOPERATIVE DIAGNOSIS: Larsen's esophagus POSTOPERATIVE DIAGNOSIS: Larsen's esophagus status post radiofrequency ablation. Hiatal hernia OPERATION: EGD with radiofrequency ablation SURGEON: LEONIDAS HENAO ANESTHESIA: LMAC TISSUE REMOVED OR ALTERED: As noted above. COMPLICATIONS: None. ESTIMATED BLOOD LOSS: None. INTRAOPERATIVE FINDINGS: As noted above. PROCEDURE: Patient tolerated the procedure well. No immediate postprocedure complications are noted. Patient discharged in good condition. Discharge date 01/08/2019. Discharge diet: Regular. Discharge activity: Regular. 2-3-week follow-up to discuss findings. Patient is instructed to call the office or proceed to the emergency room should there be any further proximal questions.
== END 2019-01-08 12:30 | disposition home or self-care (01) ==
LOC: OROUT 09:33
PROVIDERS: ATTEND Internal Medicine Gastroenterology
DX: K22.719 Barrett's esophagus with dysplasia, unspecified (principal); K44.9 Diaphragmatic hernia without obstruction or gangrene; J45.909 Unspecified asthma, uncomplicated; E07.9 Disorder of thyroid, unspecified; I10 Essential (primary) hypertension; K21.9 Gastro-esophageal reflux disease without esophagitis; I49.9 Cardiac arrhythmia, unspecified; D64.9 Anemia, unspecified; Z88.5 Allergy status to narcotic agent; Z88.1 Allergy status to other antibiotic agents; Z86.73 Personal history of transient ischemic attack (TIA), and cerebral infarction without residual deficits; Z85.3 Personal history of malignant neoplasm of breast
CPT/HCPCS: 43270; 36415; 84132; J2250; J2704; A9270; 731

== ENCOUNTER 2019-01-21 18:27 | Emergency (ER) | payer MEDICARE, OTHER ==
[2019-01-21] MEDS ORDERED: NORMAL SALINE 1000 ML 1,000 ML IV ONE (19:31)
--- NOTE | 2019-01-21 20:16 | RADIOLOGY REPORT (SQ) ---
XR CHEST 1 VIEW HISTORY: Cough and fever. COMPARISON: None. FINDINGS: The heart size is normal. No consolidation, pleural effusion, or pneumothorax is seen. There is right lung base atelectasis. Generalized osteopenia is present. There is a right subclavian line with the tip in the SVC. IMPRESSION: No evidence of acute cardiopulmonary disease.
[2019-01-21 20:28] LABS: VENOUS BLOOD HCO3 24.8 mmol/L (20-32); VENOUS BLOOD PCO2 40.5 mmHg (35-63); VENOUS BLOOD PH 7.4 (7.30-7.42)
[2019-01-21 20:29] LABS: ABSOLUTE BASOPHILS # (AUTO) 0.1 10^3/uL (0.0-0.2); ABSOLUTE EOSINOPHILS # (AUTO) 0.2 10^3/uL (0.0-0.6); ABSOLUTE LYMPHOCYTES (AUTO) 1.7 10^3/uL (0.5-4.7); ABSOLUTE MONOCYTES (AUTO) 1.1 10^3/uL (0.1-1.4); ABSOLUTE NEUT (AUTO) 10.7 10^3/uL (1.7-8.2); EOSINOPHILS % (AUTO) 1.6 % (0-6); HEMATOCRIT 40.4 % (36.0-47.0); HEMOGLOBIN 13.2 g/dL (12.0-15.5); LYMPHOCYTES % (AUTO) 12.4 % (13-45); MEAN CORPUSCULAR HEMOGLOBIN 30.8 pg (27.0-33.4); MEAN CORPUSCULAR HGB CONC 32.7 g/dL (32.0-36.0); MEAN CORPUSCULAR VOLUME 94 fl (80-97); MONOCYTES % (AUTO) 7.6 % (3-13); PLATELET COUNT 291 10^3/uL (150-450); RED CELL DISTRIBUTION WIDTH 13.8 % (11.5-14.0); SEGMENTED NEUTROPHILS % (AUTO) 77.4 % (42-78); TOTAL CELLS COUNTED % (AUTO) 100 %; WHITE BLOOD COUNT 13.9 10^3/uL (4.0-10.5)
[2019-01-21 20:37] LABS: INTERNATIONAL RATION (INR) 1.02; PROTHROMBIN TIME 13.9 SEC (11.4-15.4)
[2019-01-21 21:30] LABS: ALANINE AMINOTRANSFERASE 21 U/L (9-52); ALBUMIN 3.3 g/dL (3.5-5.0); ALKALINE PHOSPHATASE 59 U/L (38-126); ANION GAP 8 (5-19); ASPARTATE AMINO TRANSFERASE 24 U/L (14-36); BILIRUBIN,DIRECT 0.3 mg/dL (0.0-0.4); BILIRUBIN,TOTAL 0.6 mg/dL (0.2-1.3); BLOOD UREA NITROGEN 16 mg/dL (7-20); CALCIUM 8.6 mg/dL (8.4-10.2); CARBON DIOXIDE 26 mmol/L (22-30); CHLORIDE 100 mmol/L (98-107); GLUCOSE 97 mg/dL (75-110); POTASSIUM 3.6 mmol/L (3.6-5.0); SODIUM 133.7 mmol/L (137-145); TOTAL PROTEIN 6.2 g/dL (6.3-8.2)
--- NOTE | 2019-01-21 21:40 | ER Document Report ---
ED General - General Chief Complaint: Fever Stated Complaint: FEVER/WEAKNESS Time Seen by Provider: 01/21/19 19:30 Primary Care Provider: TOI LOPEZ PA-C [Primary Care Provider] - Follow up as needed TRAVEL OUTSIDE OF THE [place] IN LAST 30 DAYS: No - HPI Notes: Patient is a 78-year-old female presents to the emergency department for evaluation of significant chills, fever. This is been going on intermittently for the last several days. She has been weak and fatigued. She has had some malaise. She was recently treated for a urinary tract infection. She notes she had one episode of diarrhea in the middle of the night 2 days ago. Other than that she has not moved her bowels since. She denies any nausea or vomiting. No cough or shortness of breath. No cuts or rashes. - Related Data Allergies/Adverse Reactions: ciprofloxacin [Ciprofloxacin] Allergy (Severe, Verified 01/21/19 18:29) SEPTIC FAILURE levofloxacin [From Levaquin] Allergy (Severe, Verified 01/21/19 18:29) SEPTIC FAILURE codeine [Codeine] Allergy (Intermediate, Verified 01/21/19 18:29) Hallucinations Past Medical History - General Information source: Patient - Social History Smoking Status: Former Smoker Family History: CAD, Hypertension, Malignancy - Skin, leukemia, CKD Patient has suicidal ideation: No Patient has homicidal ideation: No - Past Medical History Cardiac Medical History: Reports: Hx Coronary Artery Disease, Hx Hypercholesterolemia, Hx Hypertension Denies: Hx Atrial Fibrillation, Hx Heart Attack Pulmonary Medical History: Reports: Hx Bronchitis, Hx Pneumonia, Hx Sleep Apnea Denies: Hx Asthma, Hx COPD, Hx Tuberculosis Neurological Medical History: Reports: Hx Cerebrovascular Accident - Possible small stroke , Hx Seizures - OR aware LAST SEIZURE 2 MONTHS Endocrine Medical History: Reports: Hx Hypothyroidism Renal/ Medical History: Denies: Hx Peritoneal Dialysis Malignancy Medical History: Reports: Hx Breast Cancer - S/P LUMPECTOMY, CHEMO Tx, RAD. Tx GI Medical History: Reports: Hx Gastroesophageal Reflux Disease, Hx Irritable Bowel. Denies: Hx Hepatitis, Hx Hiatal Hernia - HAD UNIQUE, Hx Ulcer Musculoskeletal Medical History: Reports Hx Arthritis Psychiatric Medical History: Reports: Hx Depression Denies: Hx Attention Deficit Hyperactivity Disorder, Hx Bipolar Disorder Infectious Medical History: Denies: Hx Hepatitis Past Surgical History: Reports: Hx Abdominal Surgery - Jesus Fundoplication, Hx Appendectomy, Hx Breast Surgery, Hx Cholecystectomy, Hx Hysterectomy, Hx Tonsillectomy, Other - Niesen fundoplication. Denies: Hx Mastectomy, Hx Open Heart Surgery, Hx Pacemaker - Immunizations Hx Diphtheria, Pertussis, Tetanus Vaccination: Yes Hx Pneumococcal Vaccination: 07/27/13 Review of Systems - Review of Systems Constitutional: Chills, Malaise EENT: No symptoms reported Cardiovascular: No symptoms reported Respiratory: No symptoms reported Gastrointestinal: See HPI Genitourinary: No symptoms reported Female Genitourinary: No symptoms reported Musculoskeletal: No symptoms reported Skin: No symptoms reported Neurological/Psychological: No symptoms reported Physical Exam - Vital signs Vitals: Temp Pulse Resp BP Pulse Ox 98.2 F 119 H 20 113/80 95 01/21/19 18:32 01/21/19 18:32 01/21/19 18:32 01/21/19 18:32 01/21/19 18:32 - Notes Notes: Vital signs reviewed, please refer to chart. Patient is normocephalic, atraumatic. Pupils equal round, reactive to light. Pharynx is without erythema or exudate. Neck is supple without meningismus. Heart is regular rate and rhythm. Lungs are clear to auscultation bilaterally. Abdomen is soft, nontender, normoactive bowel sounds throughout. Extremities without cyanosis, clubbing, edema. Peripheral pulses are equal. Skin is warm and dry. Patient is awake, alert, oriented x3. Cranial nerves II through XII are grossly intact without focal neurological deficits. Strength is plus 5 out of 5 bilateral upper and lower extremities. Gait is within normal limits. Sensation is intact. Reflexes are symmetrical.. Course - Re-evaluation Re-evalutation: 01/22/19 00:02 Patient presents to the emergency department for evaluation. Initially she was moderately tachycardic. This actually improved without the administration of fluids. Laboratory investigations revealed leukocytosis. No clear signs of infection in her urine. Blood cultures are pending. Chest x-ray is negative. On recheck patient's vital signs reveal a heart rate of 89, respiratory rate of 15, blood pressure of 124/62, and SPO2 of 98%. She is stable. She did have some nausea and was administered IV Zofran here send her home with nausea. I did discuss findings with the patient as well as her family member. I explained to them that cultures were pending and she may require further workup. At some Perative that she follow-up with her primary care physician next week. She voiced understanding to this and the patient was discharged. - Vital Signs Vital signs: Temp Pulse Resp BP Pulse Ox 98.2 F 119 H 16 115/67 100 01/21/19 18:32 01/21/19 18:32 01/21/19 23:01 01/21/19 23:00 01/21/19 23:01 - Laboratory Result Diagrams: 01/21/19 20:00 01/21/19 21:05 Laboratory results interpreted by me: 01/21/19 01/21/19 01/21/19 20:00 21:05 23:21 WBC 13.9 H Lymphocytes % 12.4 L Absolute Neutrophils 10.7 H Sodium 133.7 L Total Protein 6.2 L Albumin 3.3 L Urine Ketones 20 H Urine Ascorbic Acid 40 H - Diagnostic Test Radiology reviewed: Reports reviewed - No acute cardiopulmonary disease - EKG Interpretation by Me Additional EKG results interpreted by me: 01/22/19 00:03 Sinus rhythm with a rate of 96 bpm. Normal axis and intervals, no acute ST changes concerning for ischemia or infarction. Discharge - Discharge Clinical Impression: Chills, Nausea Condition: Stable Disposition: HOME, SELF-CARE Additional Instructions: Rest, stay well-hydrated. Your blood cultures are still pending, as is your urine culture. You will be contacted if any bacteria grow. Follow-up with your doctor next week. Take Zofran as needed for nausea. Return to the emergency department with worsening or new concerning symptoms. Referrals: TOI LOPEZ PA-C [Primary Care Provider] - Follow up as needed
[2019-01-21 23:48] LABS: APPEARANCE,URINE CLEAR; BILIRUBIN,URINE NEGATIVE (NEGATIVE); COLOR,URINE YELLOW; GLUCOSE, URINE NEGATIVE (NEGATIVE); KETONES,URINE 20 mg/dL (NEGATIVE); LEUKOCYTE ESTERASE,URINE NEGATIVE (NEGATIVE); NITRITE,URINE NEGATIVE (NEGATIVE); PROTEIN,URINE NEGATIVE (NEGATIVE); URINE SPECIFIC GRAVITY 1.025; UROBILINOGEN,URINE NEGATIVE mg/dL (<2.0)
[2019-01-21] MEDS ORDERED: ONDANSETRON HCL INJ/PF 4 MG/2 ML SDV IV ONE (23:49)
[2019-01-22] MEDS ORDERED: ONDANSETRON ODT 4 MG TAB (6 TAB/ER DISP) PO PRN (00:05)
[2019-01-22 01:16] VITALS: BP 128/71
--- NOTE | 2019-01-22 20:59 | EKG REPORT ---
SEVERITY:- NORMAL ECG - SINUS RHYTHM : Confirmed by: Tamara Lindsay MD 22-Jan-2019 20:59:02
== END 2019-01-22 01:14 | disposition home or self-care (01) ==
LOC: ER 18:27
DX: R11.0 Nausea (principal); R50.9 Fever, unspecified; R53.1 Weakness; R53.83 Other fatigue; R53.81 Other malaise; I25.10 Atherosclerotic heart disease of native coronary artery without angina pectoris; I10 Essential (primary) hypertension
CPT/HCPCS: 93005; 99284; 96361; 96374; 36415; 87040; 87086; 82962; 85025; 85610; 80053; 81001; 82803; 83605; 71045; 93010; J2405; J7030; A9270

== ENCOUNTER 2019-02-09 08:05 | Day surgery (SDC) | payer MEDICARE, OTHER ==
[~2019-02-09 08:05] MED LIST changes: +DIPHENHYDRAMINE HCL 50 MG/ML VIAL ONE; +EPINEPHRINE INJ 1 MG/10 ML DISP.SYRIN ONE; +FENTANYL CITRATE INJ/PF 100 MCG/2 ML AMPUL ONE; +FLUMAZENIL INJ 0.5 MG/5 ML VIAL ONE; +GLUCAGON,HUMAN RECOMB 1 MG INJ ONE; -MIDAZOLAM 2 MG/2 ML INJ ONE; +NALOXONE HCL INJ/PF 0.4 MG/1 ML SDV ONE; +ONDANSETRON HCL INJ/PF 4 MG/2 ML SDV ONE; -PROPOFOL INJ 200 MG/20 ML VIAL IV ONE
[2019-02-09] MEDS: MIDAZOLAM 2 MG/2 ML INJ ONE ×2 (09:00→09:05)
--- NOTE | 2019-02-09 09:26 | Operative Report ---
Nonrecallable Operative Report DATE OF SURGERY: 02/09/19 PREOPERATIVE DIAGNOSIS: hiatal hernia, barretts esophagus POSTOPERATIVE DIAGNOSIS: hiatal hernia, barretts esophagus OPERATION: esophagogastroduodenoscopy SURGEON: ELLE MEADE ANESTHESIA: Moderate Sedation TISSUE REMOVED OR ALTERED: none COMPLICATIONS: none ESTIMATED BLOOD LOSS: 0 INTRAOPERATIVE FINDINGS: see dictation PROCEDURE: see dictation
--- NOTE | 2019-02-09 09:27 | Discharge Summary ---
Discharge Summary (SDC) - Discharge Final Diagnosis: hiatal hernia,barretts esophagus Date of Surgery: 02/09/19 Discharge Date: 02/09/19 Condition: Good Referrals: USHA MADRIGAL MD [Primary Care Provider] - Discharge Diet: As Tolerated Discharge Activity: Activity As Tolerated Report the Following to Your Physician Immediately: Shortness of Breath, Nausea, Vomiting, Increase in Pain - needs a f/u appoint with me [id number]
--- NOTE | 2019-02-09 10:04 | OPERATIVE REPORT E ---
Operative Report NAME: ERIC PRETTY : 1940 AGE: 78Y DATE OF SURGERY: 02/09/2019 ROOM: PREOPERATIVE DIAGNOSIS: HISTORY OF ESOPHAGEAL FUNDOPLICATION, LEAL'S ESOPHAGUS, HIATAL HERNIA. POSTOPERATIVE DIAGNOSIS: HISTORY OF ESOPHAGEAL FUNDOPLICATION, LEAL'S ESOPHAGUS, HIATAL HERNIA. OPERATION: Esophagogastroduodenoscopy. SURGEON: ELLE MEADE M.D. INDICATIONS FOR OPERATION: This is a 78-year-old female who in the underwent a Jesus fundoplication at [facility]. She has been followed by Dr. Ritter for chronic Leal's esophagus and recently had undergone an ablation. Patient complains of epigastric distress and poor appetite, inability to finish larger meals, and a feeling of bloating and epigastric distress after eating. Because of these symptoms she underwent an upper GI study which showed a recurrent hiatal hernia and therefore she was referred to surgery by Dr. Ritter for these symptoms. An upper GI was done prior to this and endoscopy which showed a recurrent hiatal hernia. PROCEDURE: The patient was brought to the endoscopy suite in an awake, alert, and stable condition. After an appropriate timeout she was given IV sedation which included Versed and Fentanyl. She was placed in a left lateral decubitus position and the Olympus gastroscope was utilized. It was passed into the posterior pharynx and down the proximal esophagus to the GE junction. There was evidence of a fairly large hiatal hernia. It was passed through the GE junction into the stomach and in the stomach there appeared to be a significant amount of undigested food, despite the patient being n.p.o. this morning. With some manipulation and some clearing of the contents of the stomach we were able to traverse the body, antrum, and to the pylorus. The pylorus was intubated and the scope was passed into the duodenum. The first and second portion of the duodenum were visualized and it appeared to be normal without any evidence of masses. We withdrew the scope back through the pylorus. The distal antrum appeared to be normal. It was somewhat difficult to retroflex the scope because of the retained gastric contents but we were eventually able to do so and identify the fairly large hiatal hernia with no evidence of a fundoplication. It appeared that the previous fundoplication had completely broken down. As we looked through the scope we noted a fairly patchoulis GE junction. There was no significant distal esophagitis. On visualization there did not appear to be linear streaking suggestive of a significant Leal's esophagus. The scope was again slowly withdrawn and removed. IMPRESSION: FAILED JESUS FUNDOPLICATION. HISTORY OF LEAL'S ESOPHAGUS, HIATAL HERNIA. NOTE: The patient appears to have some gastric atony secondary to a significant amount of retained food that she ate last night for dinner. There was no significant evidence of severe distal esophagitis and her current symptoms include more of a loss of appetite than true gastroesophageal reflux symptoms. I will see her back in the office in 2 to 3 weeks and discuss dietary management and possible gastric motility agents. DICTATING PHYSICIAN: ELLE MEADE M.D. [id number] CHELSEY#: [id number] ID: [id number] JOB#: [id number] ACCT: [id number] cc:ELLE MEADE M.D. >
[2019-02-09 11:29] VITALS: BP 123/77
== END 2019-02-09 10:40 | disposition home or self-care (01) ==
LOC: END 08:05
PROVIDERS: ATTEND Surgery
DX: K22.70 Barrett's esophagus without dysplasia (principal); K21.9 Gastro-esophageal reflux disease without esophagitis; K44.9 Diaphragmatic hernia without obstruction or gangrene; E78.5 Hyperlipidemia, unspecified; E03.9 Hypothyroidism, unspecified; G47.30 Sleep apnea, unspecified; I10 Essential (primary) hypertension; J45.909 Unspecified asthma, uncomplicated; G40.909 Epilepsy, unspecified, not intractable, without status epilepticus; Z86.73 Personal history of transient ischemic attack (TIA), and cerebral infarction without residual deficits; Z85.3 Personal history of malignant neoplasm of breast; Z88.5 Allergy status to narcotic agent; Z88.1 Allergy status to other antibiotic agents; Z87.891 Personal history of nicotine dependence; Z79.899 Other long term (current) drug therapy; Z79.82 Long term (current) use of aspirin
CPT/HCPCS: 43235; J2250; J3010; J0171; J1200; J1610; J2310; J2405; J3490

== ENCOUNTER 2019-03-11 18:49 | Emergency (ER) | payer MEDICARE ==
--- NOTE | 2019-03-11 20:10 | ER Document Report ---
ED Medical Screen (RME) - General Chief Complaint: Abdominal Pain Stated Complaint: SHORTNESS OF BREATH Time Seen by Provider: 03/11/19 20:09 Primary Care Provider: YOBANI LEVY DO [Primary Care Provider] - Follow up as needed Mode of Arrival: Wheelchair Information source: Patient, Relative - Daughter Notes: Patient is a 78-year-old female presenting to the emergency department with 5- day history of severe abdominal pain and chills. Patient reports long history of diverticulosis, diverticulitis, C. difficile and recurrent admissions. Patient reports history of having a Jesus fundoplication surgery although she states she is having dry heaves now. Patient is tachycardic to 115 bpm, patient appears very pale, patient upgraded to VIVI @. Exam: Skin pale Lung sounds clear and equal bilaterally I have greeted and performed a rapid initial assessment of this patient. A comprehensive ED assessment and evaluation of the patient, analysis of test results and completion of the medical decision making process will be conducted by additional ED providers. Dictation of this chart was performed using voice recognition software; therefore, there may be some unintended grammatical errors. TRAVEL OUTSIDE OF THE [place] IN LAST 30 DAYS: No - Related Data Allergies/Adverse Reactions: ciprofloxacin [Ciprofloxacin] Allergy (Severe, Verified 03/11/19 18:50) SEPTIC FAILURE levofloxacin [From Levaquin] Allergy (Severe, Verified 03/11/19 18:50) SEPTIC FAILURE codeine [Codeine] Allergy (Intermediate, Verified 03/11/19 18:50) Hallucinations Past Medical History - Social History Chew tobacco use (# tins/day): No Frequency of alcohol use: None Drug Abuse: None - Past Medical History Cardiac Medical History: Reports: Hx Coronary Artery Disease, Hx Hypercholesterolemia, Hx Hypertension Denies: Hx Atrial Fibrillation, Hx Heart Attack Pulmonary Medical History: Reports: Hx Bronchitis, Hx Pneumonia, Hx Sleep Apnea Denies: Hx Asthma, Hx COPD, Hx Tuberculosis Neurological Medical History: Reports: Hx Cerebrovascular Accident - Possible small stroke , Hx Seizures - OR aware LAST SEIZURE 2 MONTHS Endocrine Medical History: Reports: Hx Hypothyroidism Renal/ Medical History: Denies: Hx Peritoneal Dialysis Malignancy Medical History: Reports: Hx Breast Cancer - S/P LUMPECTOMY, CHEMO Tx, RAD. Tx GI Medical History: Reports: Hx Gastroesophageal Reflux Disease, Hx Irritable Bowel. Denies: Hx Hepatitis, Hx Hiatal Hernia - HAD UNIQUE, Hx Ulcer Musculoskeltal Medical History: Reports Hx Arthritis, Denies Hx Systemic Lupus Erythematosus Psychiatric Medical History: Reports: Hx Depression Denies: Hx Attention Deficit Hyperactivity Disorder, Hx Bipolar Disorder Infectious Medical History: Denies: Hx Hepatitis Past Surgical History: Reports: Hx Abdominal Surgery - Jesus Fundoplication, Hx Appendectomy, Hx Breast Surgery, Hx Cholecystectomy, Hx Hysterectomy, Hx Tonsillectomy, Other - Niesen fundoplication. Denies: Hx Mastectomy, Hx Open Heart Surgery, Hx Pacemaker - Immunizations Hx Diphtheria, Pertussis, Tetanus Vaccination: Yes History of Influenza Vaccine for 07/2017 - 12/2017 Season: Yes Influenza Administration Date for 07/2017 - 12/2017 Season: 08/10/18 Physical Exam - Vital signs Vitals: Temp Pulse Resp BP Pulse Ox 98.7 F 108 H 18 104/64 93 03/11/19 19:21 03/11/19 19:21 03/11/19 19:21 03/11/19 19:21 03/11/19 19:21 Course - Vital Signs Vital signs: Temp Pulse Resp BP Pulse Ox 98.7 F 108 H 18 104/64 93 03/11/19 19:21 03/11/19 19:21 03/11/19 19:21 03/11/19 19:21 03/11/19 19:21 Doctor's Discharge - Discharge Referrals: YOBANI LEVY DO [Primary Care Provider] - Follow up as needed
[2019-03-11 20:49] LABS: ABSOLUTE EOSINOPHILS # (AUTO) 0.1 10^3/uL (0.0-0.6); ABSOLUTE LYMPHOCYTES (AUTO) 0.8 10^3/uL (0.5-4.7); ABSOLUTE MONOCYTES (AUTO) 0.6 10^3/uL (0.1-1.4); BASOPHILS % (AUTO) 0.6 % (0-2); EOSINOPHILS % (AUTO) 1.7 % (0-6); HEMATOCRIT 41.5 % (36.0-47.0); HEMOGLOBIN 13.5 g/dL (12.0-15.5); MEAN CORPUSCULAR HEMOGLOBIN 30.9 pg (27.0-33.4); MEAN CORPUSCULAR HGB CONC 32.6 g/dL (32.0-36.0); MEAN CORPUSCULAR VOLUME 95 fl (80-97); MONOCYTES % (AUTO) 13.5 % (3-13); PLATELET COUNT 206 10^3/uL (150-450); RED BLOOD COUNT 4.38 10^6/uL (3.72-5.28); RED CELL DISTRIBUTION WIDTH 14.3 % (11.5-14.0); SEGMENTED NEUTROPHILS % (AUTO) 66.2 % (42-78); TOTAL CELLS COUNTED % (AUTO) 100 %; WHITE BLOOD COUNT 4.6 10^3/uL (4.0-10.5)
[2019-03-11 20:50] LABS: VENOUS BLOOD BASE EXCESS 3.5 mmol/L; VENOUS BLOOD HCO3 29.2 mmol/L (20-32); VENOUS BLOOD PCO2 48.4 mmHg (35-63); VENOUS BLOOD PH 7.4 (7.30-7.42)
[2019-03-11 20:57] LABS: INTERNATIONAL RATION (INR) 0.98; PROTHROMBIN TIME 13.5 SEC (11.4-15.4)
[2019-03-11 21:10] LABS: ALANINE AMINOTRANSFERASE 31 U/L (9-52); ALBUMIN 3.7 g/dL (3.5-5.0); ALKALINE PHOSPHATASE 47 U/L (38-126); ANION GAP 13 (5-19); ASPARTATE AMINO TRANSFERASE 38 U/L (14-36); BILIRUBIN,DIRECT 0.3 mg/dL (0.0-0.4); BILIRUBIN,TOTAL 0.5 mg/dL (0.2-1.3); BLOOD UREA NITROGEN 24 mg/dL (7-20); CALCIUM 8.8 mg/dL (8.4-10.2); CARBON DIOXIDE 26 mmol/L (22-30); CHLORIDE 101 mmol/L (98-107); GLUCOSE 110 mg/dL (75-110); LIPASE 27.9 U/L (23-300); POTASSIUM 3.6 mmol/L (3.6-5.0); SODIUM 139.9 mmol/L (137-145); TOTAL PROTEIN 6.8 g/dL (6.3-8.2)
--- NOTE | 2019-03-11 21:20 | RADIOLOGY REPORT (SQ) ---
XR CHEST 1 VIEW HISTORY: Shortness of breath. COMPARISON: 01/21/2019 FINDINGS: The heart size is within normal limits. No consolidation, pleural effusion, or pneumothorax is seen. Unchanged right lung base atelectasis. There are no acute bony findings. Stable right subclavian line. IMPRESSION: No evidence of acute cardiopulmonary disease.
[2019-03-11] MEDS ORDERED: NORMAL SALINE 1000 ML 1,000 ML IV ONE (22:26)
[2019-03-11] MEDS ORDERED: ONDANSETRON HCL INJ/PF 4 MG/2 ML SDV IV ONE (22:26)
[2019-03-11] MEDS ORDERED: MORPHINE SULFATE 10 MG/ML INJ IV ONE (22:26)
--- NOTE | 2019-03-11 22:30 | ER Document Report ---
ED General - General Chief Complaint: Abdominal Pain Stated Complaint: SHORTNESS OF BREATH Time Seen by Provider: 03/11/19 20:09 Primary Care Provider: YOBANI LEVY DO [NO LOCAL MD] - Follow up as needed Mode of Arrival: Wheelchair Information source: Patient, [facility] Records Notes: 78-year-old female with hypertension, hyperlipidemia, coronary artery disease, diverticulitis presents with fever, chills, nausea, diarrhea that started 3 days prior to arrival. Daughters at the bedside and states that the patient has gotten progressively weak, has not been able to vomit due to a Jesus fundoplication experience extreme nausea has had poor p.o. intake. Daughter rep orts that the patient has had a history of C. difficile. Patient has not been on recent antibiotics. TRAVEL OUTSIDE OF THE [place] IN LAST 30 DAYS: No - HPI Onset: Other Onset/Duration: Gradual, Persistent, Worse Quality of pain: Throbbing Severity: Moderate Pain Level: 3 Associated symptoms: Diarrhea, Fever, Nausea, Shortness of breath, Weakness Exacerbated by: Denies Relieved by: Denies Similar symptoms previously: Yes Recently seen / treated by doctor: Yes - Related Data Allergies/Adverse Reactions: ciprofloxacin [Ciprofloxacin] Allergy (Severe, Verified 03/11/19 18:50) SEPTIC FAILURE levofloxacin [From Levaquin] Allergy (Severe, Verified 03/11/19 18:50) SEPTIC FAILURE codeine [Codeine] Allergy (Intermediate, Verified 03/11/19 18:50) Hallucinations Past Medical History - General Information source: Patient, Relative - Daughter - Social History Smoking Status: Never Smoker Chew tobacco use (# tins/day): No Frequency of alcohol use: None Drug Abuse: None Family History: CAD, Hypertension, Malignancy - Skin, leukemia, CKD Patient has suicidal ideation: No Patient has homicidal ideation: No - Past Medical History Cardiac Medical History: Reports: Hx Coronary Artery Disease, Hx Hypercholesterolemia, Hx Hypertension Denies: Hx Atrial Fibrillation, Hx Heart Attack Pulmonary Medical History: Reports: Hx Bronchitis, Hx Pneumonia, Hx Sleep Apnea Denies: Hx Asthma, Hx COPD, Hx Tuberculosis Neurological Medical History: Reports: Hx Cerebrovascular Accident - Possible small stroke , Hx Seizures - OR aware LAST SEIZURE 2 MONTHS Endocrine Medical History: Reports: Hx Hypothyroidism Renal/ Medical History: Denies: Hx Peritoneal Dialysis Malignancy Medical History: Reports: Hx Breast Cancer - S/P LUMPECTOMY, CHEMO Tx, RAD. Tx GI Medical History: Reports: Hx Gastroesophageal Reflux Disease, Hx Irritable Bowel. Denies: Hx Hepatitis, Hx Hiatal Hernia - HAD UNIQUE, Hx Ulcer Musculoskeletal Medical History: Reports Hx Arthritis, Denies Hx Systemic Lupus Erythematosus Psychiatric Medical History: Reports: Hx Depression Denies: Hx Attention Deficit Hyperactivity Disorder, Hx Bipolar Disorder Infectious Medical History: Denies: Hx Hepatitis Past Surgical History: Reports: Hx Abdominal Surgery - Jesus Fundoplication, Hx Appendectomy, Hx Breast Surgery, Hx Cholecystectomy, Hx Hysterectomy, Hx Tons illectomy, Other - Niesen fundoplication. Denies: Hx Mastectomy, Hx Open Heart Surgery, Hx Pacemaker - Immunizations Hx Diphtheria, Pertussis, Tetanus Vaccination: Yes Hx Pneumococcal Vaccination: 07/27/13 Review of Systems - Review of Systems Constitutional: Chills, Weakness, Recent illness EENT: denies: Blurred vision, Difficulty swallowing Cardiovascular: denies: Chest pain, Palpitations Respiratory: Short of breath. denies: Cough Gastrointestinal: Abdominal pain, Diarrhea, Nausea, Poor appetite, Poor fluid intake. denies: Vomiting, Blood streaked bowels Genitourinary: denies: Dysuria Female Genitourinary: denies: Vaginal odor Musculoskeletal: denies: Leg swelling Skin: denies: Rash Hematologic/Lymphatic: No symptoms reported Neurological/Psychological: denies: Headaches -: Yes All other systems reviewed and negative Physical Exam - Vital signs Vitals: Temp Pulse Resp BP Pulse Ox 98.7 F 108 H 18 104/64 93 03/11/19 19:21 03/11/19 19:21 03/11/19 19:21 03/11/19 19:21 03/11/19 19:21 - Notes Notes: PHYSICAL EXAMINATION: GENERAL: Well-appearing, well-nourished and in no acute distress. HEAD: Atraumatic, normocephalic. EYES: Pupils equal round and reactive to light, extraocular movements intact, conjunctiva are normal. ENT: Nares patent, oropharynx clear without exudates. Dry mucous membranes. NECK: Normal range of motion, supple without lymphadenopathy LUNGS: Breath sounds clear to auscultation bilaterally and equal. No wheezes r ales or rhonchi. HEART: Regular rate and rhythm without murmurs ABDOMEN: Soft, nontender, nondistended abdomen. No guarding, no rebound. No masses appreciated. Female : deferred Musculoskeletal: Normal range of motion, no pitting or edema. No cyanosis. NEUROLOGICAL: Cranial nerves grossly intact. Normal speech, normal gait. Normal sensory, motor exams PSYCH: Normal mood, normal affect. SKIN: Warm, Dry, normal turgor, no rashes or lesions noted. Course - Re-evaluation Re-evalutation: 03/12/19 05:36 Laboratory 03/11/19 03/11/19 03/11/19 20:30 20:30 20:30 WBC 4.6 RBC 4.38 Hgb 13.5 Hct 41.5 MCV 95 MCH 30.9 MCHC 32.6 RDW 14.3 H Plt Count 206 Seg Neutrophils % 66.2 Lymphocytes % 18.0 Monocytes % 13.5 H Eosinophils % 1.7 Basophils % 0.6 Absolute Neutrophils 3.0 Absolute Lymphocytes 0.8 Absolute Monocytes 0.6 Absolute Eosinophils 0.1 Absolute Basophils 0.0 PT 13.5 INR 0.98 VBG pH VBG pCO2 VBG HCO3 VBG Base Excess Sodium 139.9 Potassium 3.6 Chloride 101 Carbon Dioxide 26 Anion Gap 13 BUN 24 H Creatinine 0.84 Est GFR ( Amer) > 60 Est GFR (Non-Af Amer) > 60 Glucose 110 Lactic Acid Calcium 8.8 Total Bilirubin 0.5 Direct Bilirubin 0.3 Neonat Total Bilirubin Not Reportable Neonat Direct Bilirubin Not Reportable Neonat Indirect Bili Not Reportable AST 38 H ALT 31 Alkaline Phosphatase 47 Total Protein 6.8 Albumin 3.7 Lipase 27.9 03/11/19 03/11/19 20:30 20:30 WBC RBC Hgb Hct MCV MCH MCHC RDW Plt Count Seg Neutrophils % Lymphocytes % Monocytes % Eosinophils % Basophils % Absolute Neutrophils Absolute Lymphocytes Absolute Monocytes Absolute Eosinophils Absolute Basophils PT INR VBG pH 7.40 VBG pCO2 48.4 VBG HCO3 29.2 VBG Base Excess 3.5 Sodium Potassium Chloride Carbon Dioxide Anion Gap BUN Creatinine Est GFR ( Amer) Est GFR (Non-Af Amer) Glucose Lactic Acid 1.2 Calcium Total Bilirubin Direct Bilirubin Neonat Total Bilirubin Neonat Direct Bilirubin Neonat Indirect Bili AST ALT Alkaline Phosphatase Total Protein Albumin Lipase Chest X-Ray 03/11/19 20:11 IMPRESSION: No evidence of acute cardiopulmonary disease. Abdomen/Pelvis CT 03/11/19 22:26 IMPRESSION: 1. Intermittent dilated loops of small bowel as well as scattered areas of small bowel wall thickening. Findings are most consistent with enteritis which could be of infectious or inflammatory etiology. Due to dilation of the bowel partial small bowel obstruction while considered less likely cannot be excluded. Continued follow-up recommended. 2. Diverticulosis without evidence of acute diverticulitis. 3. Moderate hiatal hernia. This exam was performed according to our departmental dose-optimization program, which includes automated exposure control, adjustment of the mA and/or kV according to patient size and/or use of iterative reconstruction technique. Temp Pulse Resp BP Pulse Ox 98.3 F 108 H 14 117/70 97 03/12/19 01:25 03/11/19 19:21 03/12/19 01:25 03/12/19 01:25 03/12/19 01:25 - Vital Signs Vital signs: Temp Pulse Resp BP Pulse Ox 98.3 F 108 H 14 117/70 97 03/12/19 01:25 03/11/19 19:21 03/12/19 01:25 03/12/19 01:25 03/12/19 01:25 Microbiology 03/11/19 21:43 Blood Culture - Preliminary Blood NO GROWTH IN 24 HOURS 03/11/19 20:30 Blood Culture - Preliminary Blood NO GROWTH IN 24 HOURS Laboratory 03/11/19 03/11/19 03/11/19 20:30 20:30 20:30 WBC 4.6 RBC 4.38 Hgb 13.5 Hct 41.5 MCV 95 MCH 30.9 MCHC 32.6 RDW 14.3 H Plt Count 206 Seg Neutrophils % 66.2 Lymphocytes % 18.0 Monocytes % 13.5 H Eosinophils % 1.7 Basophils % 0.6 Absolute Neutrophils 3.0 Absolute Lymphocytes 0.8 Absolute Monocytes 0.6 Absolute Eosinophils 0.1 Absolute Basophils 0.0 PT 13.5 INR 0.98 VBG pH VBG pCO2 VBG HCO3 VBG Base Excess Sodium 139.9 Potassium 3.6 Chloride 101 Carbon Dioxide 26 Anion Gap 13 BUN 24 H Creatinine 0.84 Est GFR ( Amer) > 60 Est GFR (Non-Af Amer) > 60 Glucose 110 Lactic Acid Calcium 8.8 Total Bilirubin 0.5 Direct Bilirubin 0.3 Neonat Total Bilirubin Not Reportable Neonat Direct Bilirubin Not Reportable Neonat Indirect Bili Not Reportable AST 38 H ALT 31 Alkaline Phosphatase 47 Total Protein 6.8 Albumin 3.7 Lipase 27.9 03/11/19 03/11/19 20:30 20:30 WBC RBC Hgb Hct MCV MCH MCHC RDW Plt Count Seg Neutrophils % Lymphocytes % Monocytes % Eosinophils % Basophils % Absolute Neutrophils Absolute Lymphocytes Absolute Monocytes Absolute Eosinophils Absolute Basophils PT INR VBG pH 7.40 VBG pCO2 48.4 VBG HCO3 29.2 VBG Base Excess 3.5 Sodium Potassium Chloride Carbon Dioxide Anion Gap BUN Creatinine Est GFR ( Amer) Est GFR (Non-Af Amer) Glucose Lactic Acid 1.2 Calcium Total Bilirubin Direct Bilirubin Neonat Total Bilirubin Neonat Direct Bilirubin Neonat Indirect Bili AST ALT Alkaline Phosphatase Total Protein Albumin Lipase Chest X-Ray 03/11/19 20:11 IMPRESSION: No evidence of acute cardiopulmonary disease. Abdomen/Pelvis CT 03/11/19 22:26 IMPRESSION: 1. Intermittent dilated loops of small bowel as well as scattered areas of small bowel wall thickening. Findings are most consistent with enteritis which could be of infectious or inflammatory etiology. Due to dilation of the bowel partial small bowel obstruction while considered less likely cannot be excluded. Continued follow-up recommended. 2. Diverticulosis without evidence of acute diverticulitis. 3. Moderate hiatal hernia. This exam was performed according to our departmental dose-optimization program, which includes automated exposure control, adjustment of the mA and/or kV according to patient size and/or use of iterative reconstruction technique. Temp Pulse Resp BP Pulse Ox 98.3 F 108 H 14 117/70 97 03/12/19 01:25 03/11/19 19:21 03/12/19 01:25 03/12/19 01:25 03/12/19 01:25 78-year-old female presents with nausea, vomiting, diarrhea, weakness and decreased p.o. intake. Upon arrival patient is initially tachycardic but this resolved after IV fluid administration. Patient does appear mildly dehydrated, pale but this also improved after rehydration. CBC is without leukocytosis which makes C. difficile unlikely., Venous blood glass, lactic acid are within normal limits. CT of the abdomen and pelvis were obtained and consistent with enteritis. No evidence of diverticulitis, dissection, appendicitis, urolithiasis. Patient is having normal bowel movements making obstruction less likely. Patient was treated with Toradol IV and reports significant improvement of her pain. Both patient and daughter are comfortable with discharge home. Patient was evaluated and treated as appropriate for the patient's presenting symptoms and complaint, with consideration of any critical or life threatening conditions that may be associated with their obtained history and exam as noted above. All results were discussed with patient and daughter was at the bedside .Patient provided the opportunity to ask questions, and express concerns. Patient was educated on treatments based on their presumed diagnosis as noted above. At this time we will discharge the patient with return precautions and follow-up recommendations. Verbal discharge instructions given a the bedside. Medication warnings reviewed. Patient is in agreement with this plan and has verbalized understanding of return precautions. After careful consideration I feel that that patient can be safely discharged from the emergency department, they were advised to followup with a primary care physician in 2-3 days. Dictation on this chart was performed using voice recognition software and may result in unintended grammatical, spelling, syntax or errors. 03/12/19 23:40 - Laboratory Result Diagrams: 03/11/19 20:30 03/11/19 20:30 Laboratory results interpreted by me: 03/11/19 03/11/19 20:30 20:30 RDW 14.3 H Monocytes % 13.5 H BUN 24 H AST 38 H - Diagnostic Test Radiology reviewed: Image reviewed, Reports reviewed - EKG Interpretation by Me EKG shows normal: Sinus rhythm Rate: Normal Rhythm: NSR When compared to previous EKG there are: No significant change Discharge - Discharge Clinical Impression: Dehydration, Enteritis, Nausea Condition: Good Disposition: HOME, SELF-CARE Instructions: Abdominal Pain ([facility]), Dehydration ([facility]), Nausea or Vomiting, Nonspecific ([facility]) Additional Instructions: Follow up with your [id number] hours for further care or return to the ED IMMEDIATELY if symptoms worsen or you have any concerns. If you cannot afford to follow up with your primary care physician a list of low cost clinics have been provided at the end of your discharge papers as well. Most prescribed medications have multiple side effects. The safest thing to do is when filling your prescription speak to your pharmacist regarding possible interactions with your normal home medications and over the counter medications such as Ibuprofen, Tylenol, Benadryl. If you experience any symptoms that cause you discomfort or concern you should discontinue the medication immediately and return to the emergency room or call your primary care physician. Prescriptions: Ketorolac Tromethamine [Toradol 10 mg Tablet] 10 mg PO Q6HP PRN #12 tablet PRN Reason: Metronidazole [Flagyl 500 mg Tablet] 500 mg PO BID 5 Days #10 tablet Ondansetron [Zofran Odt 4 mg Tablet] 1 - 2 tab PO Q4H PRN #15 tab.rapdis PRN Reason: For Nausea/Vomiting Forms: Parent Work Note Referrals: YOBANI LEVY DO [NO LOCAL MD] - Follow up as needed
--- NOTE | 2019-03-11 22:56 | EKG REPORT ---
SEVERITY:- BORDERLINE ECG - SINUS RHYTHM NONSPECIFIC ST-T CHANGES ANTERIOR LEADS : Confirmed by: Damian Lockhart MD 11-Mar-2019 22:55:33
[2019-03-11] MEDS ORDERED: RINGERS SOLUTION,LACTATED 1,000 ML IV ONE (23:26)
--- NOTE | 2019-03-11 23:42 | RADIOLOGY REPORT (SQ) ---
EXAM DESCRIPTION: CT ABDOMEN PELVIS WITH IV CONTRAST COMPLETED DATE/TME: 03/11/2019 22:26 CLINICAL HISTORY: abd pain/ fever COMPARISON: 03/26/2018 TECHNIQUE: CT of the abdomen and pelvis performed following IV administration of 87 mL of Omnipaque 350. DLP: 1504.71 mGycm FINDINGS: Lung Bases: Minimal right basilar atelectasis. Bones: Degenerative change of the spine. Abdomen: Liver: The liver has normal size and density. No intrahepatic mass or biliary dilatation. Gallbladder: Prior cholecystectomy. Spleen, Pancreas, and Adrenal Glands: The spleen, pancreas, and adrenal glands are unremarkable. Kidneys: The kidneys have normal size and contour without evidence of solid mass or hydronephrosis. Vasculature: Aortoiliac atherosclerosis. IVC is unremarkable. The portal vein is patent. The proximal visceral and renal arteries are patent. Stomach: Moderate hiatal hernia. Other: No free intraperitoneal air. Small amount of free fluid. Pelvis: Bladder: Urinary bladder is unremarkable. Bowel: Scattered diverticula of the colon. Intermittent dilated loops of small bowel throughout the abdomen with mild small bowel wall thickening of the nondilated loops. No well-defined transition point. Appendix: Not identified. Pelvis: Prior hysterectomy. IMPRESSION: 1. Intermittent dilated loops of small bowel as well as scattered areas of small bowel wall thickening. Findings are most consistent with enteritis which could be of infectious or inflammatory etiology. Due to dilation of the bowel partial small bowel obstruction while considered less likely cannot be excluded. Continued follow-up recommended. 2. Diverticulosis without evidence of acute diverticulitis. 3. Moderate hiatal hernia. This exam was performed according to our departmental dose-optimization program, which includes automated exposure control, adjustment of the mA and/or kV according to patient size and/or use of iterative reconstruction technique.
[2019-03-11] MEDS ORDERED: KETOROLAC TROMETHAMINE INJ/PF 30 MG/1 ML SDV IV ONE (23:56)
[2019-03-12 01:59] VITALS: BP 117/70
== END 2019-03-12 01:25 | disposition home or self-care (01) ==
LOC: ER 18:49
DX: K52.9 Noninfective gastroenteritis and colitis, unspecified (principal); R11.2 Nausea with vomiting, unspecified; R53.1 Weakness; R63.0 Anorexia; R10.9 Unspecified abdominal pain; R06.02 Shortness of breath; R50.9 Fever, unspecified; I25.10 Atherosclerotic heart disease of native coronary artery without angina pectoris; I10 Essential (primary) hypertension
CPT/HCPCS: 93005; 99285; 96361; 96374; 96375; 36415; 87040; 83690; 85025; 85610; 80053; 82803; 83605; 71045; 74177; 93010; J1885; J2270; J2405; J7030; J7120

== ENCOUNTER → 2019-12-27 | Outpatient (CLI) | payer MEDICARE, OTHER ==
--- NOTE | 2019-12-27 13:57 | WOMENS IMAGING REPORT ---
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 Palpable lump in the left axilla. Previous left breast cancer status post lumpe ctomy, chemotherapy and radiation. COMPARISON: None. EXAM PARAMETERS: Standard craniocaudal and mediolateral oblique views of each breast recorded using digital acquisition and breast tomosynthesis. Left breast ultrasound. Read with the assistance of CAD: .[employer] Bed Setter Version 9.2 LIMITATIONS: None. FINDINGS: RIGHT BREAST MASSES: No suspicious masses. CALCIFICATIONS: Benign scattered calcifications are stable. ARCHITECTURAL DISTORTION: None. ASYMMETRY: None noted. OTHER: No other significant findings. LEFT BREAST MASSES: No suspicious masses. CALCIFICATIONS: Dystrophic calcifications and postsurgical changes are stable. ARCHITECTURAL DISTORTION: Postsurgical changes are stable. ASYMMETRY: None noted. OTHER: No other significant finding. The patient was taken ultrasound for further evaluation of the left axillary lump. The left axilla w as scanned as indicated by the patient. There is normal appearing breast tissue. No mass, adenopath y, skin thickening, cyst, or other abnormality in the area of palpable concern. IMPRESSION: Stable postsurgical and posttreatment changes in the left breast. No mammographic or so nographic evidence of malignancy. Recommend routine annual screening mammography. BREAST DENSITY: b. There are scattered areas of fibroglandular density. BIRAD: ASSESSMENT: 2 Benign findings. RECOMMENDATION: RECOMMENDED FOLLOW UP: Birads 1 or 2: The patient should resume routine screening . SPECIFIC INTERVENTION/IMAGING/CONSULTATION RECOMMENDED:No additional intervention/ imaging/consultati on needed at this time. COMMUNICATION:The negative/benign results were communicated to the patient. COMMENT: The patient has been notified of the results by letter per MQSA requirements. Additional no tification policies are in place for contacting patient with suspicious or incomplete findings. Quality ID #225: The [employer] recommends an annual screening mammogram for women aged 40 years or over. This facility utilizes a reminder system to ensure that all patients receive reminder letters, and/or direct phone calls for appointments. This includes reminders for routine scr eening mammograms, diagnostic mammograms, or other Breast Imaging Interventions when appropriate. Th is patient will be placed in the appropriate reminder system. TECHNICAL DOCUMENTATION: FINDING NUMBER: (1) ASSESSMENT: (1) JOB ID: [id number] 2010 [employer]- All Rights Reserved Reading location - IP/workstation name: [email or web address]
--- NOTE | 2019-12-27 13:57 | WOMENS IMAGING REPORT ---
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 Palpable lump in the left axilla. Previous left breast cancer status post lumpe ctomy, chemotherapy and radiation. COMPARISON: None. EXAM PARAMETERS: Standard craniocaudal and mediolateral oblique views of each breast recorded using digital acquisition and breast tomosynthesis. Left breast ultrasound. Read with the assistance of CAD: .[employer] Mannequin Mounter Version 9.2 LIMITATIONS: None. FINDINGS: RIGHT BREAST MASSES: No suspicious masses. CALCIFICATIONS: Benign scattered calcifications are stable. ARCHITECTURAL DISTORTION: None. ASYMMETRY: None noted. OTHER: No other significant findings. LEFT BREAST MASSES: No suspicious masses. CALCIFICATIONS: Dystrophic calcifications and postsurgical changes are stable. ARCHITECTURAL DISTORTION: Postsurgical changes are stable. ASYMMETRY: None noted. OTHER: No other significant finding. The patient was taken ultrasound for further evaluation of the left axillary lump. The left axilla w as scanned as indicated by the patient. There is normal appearing breast tissue. No mass, adenopath y, skin thickening, cyst, or other abnormality in the area of palpable concern. IMPRESSION: Stable postsurgical and posttreatment changes in the left breast. No mammographic or so nographic evidence of malignancy. Recommend routine annual screening mammography. BREAST DENSITY: b. There are scattered areas of fibroglandular density. BIRAD: ASSESSMENT: 2 Benign findings. RECOMMENDATION: RECOMMENDED FOLLOW UP: Birads 1 or 2: The patient should resume routine screening . SPECIFIC INTERVENTION/IMAGING/CONSULTATION RECOMMENDED:No additional intervention/ imaging/consultati on needed at this time. COMMUNICATION:The negative/benign results were communicated to the patient. COMMENT: The patient has been notified of the results by letter per MQSA requirements. Additional no tification policies are in place for contacting patient with suspicious or incomplete findings. Quality ID #225: The [employer] recommends an annual screening mammogram for women aged 40 years or over. This facility utilizes a reminder system to ensure that all patients receive reminder letters, and/or direct phone calls for appointments. This includes reminders for routine scr eening mammograms, diagnostic mammograms, or other Breast Imaging Interventions when appropriate. Th is patient will be placed in the appropriate reminder system. TECHNICAL DOCUMENTATION: FINDING NUMBER: (1) ASSESSMENT: (1) JOB ID: [id number] 2010 [employer]- All Rights Reserved Reading location - IP/workstation name: [email or web address]
== END ==
LOC: WI 07:55
PROVIDERS: ATTEND Internal Medicine Hematology & Oncology
DX: C50.312 Malignant neoplasm of lower-inner quadrant of left female breast (principal)
CPT/HCPCS: 76642; 77066; G0279; 77062

== ENCOUNTER → 2020-11-18 | Outpatient (CLI) | payer MEDICARE, OTHER ==
[~2020-11-18] MED LIST changes: +COVID-19 VACCINE (PFIZER)/PF 30 MCG/0.3 ML VIAL IM ONE; -DIPHENHYDRAMINE HCL 50 MG/ML VIAL ONE; -EPINEPHRINE INJ 1 MG/10 ML DISP.SYRIN ONE; +EPINEPHRINE INJ/PF 1 MG/1 ML AMPULE IM PRN; -FENTANYL CITRATE INJ/PF 100 MCG/2 ML AMPUL ONE; -FLUMAZENIL INJ 0.5 MG/5 ML VIAL ONE; -GLUCAGON,HUMAN RECOMB 1 MG INJ ONE; -NALOXONE HCL INJ/PF 0.4 MG/1 ML SDV ONE; -ONDANSETRON HCL INJ/PF 4 MG/2 ML SDV ONE
== END ==
LOC: EMPHEALTH 10:52
PROVIDERS: ATTEND Internal Medicine
DX: Z23 Encounter for immunization (principal)
CPT/HCPCS: 91300